=== PATIENT | female | born 1990 | race Caucasian/White ===

== ENCOUNTER 2018-09-02 00:20 | Emergency (ER) | payer MEDICARE, MEDICAID, SELFPAY ==
[2018-09-02 00:22] VITALS: BP 134/83; PULSE 117; RESP 25; TEMP 36.3; O2SAT 97; BMI 25.6
--- NOTE | 2018-09-02 00:23 | ED.RN ---
RN CALLED FOR EKG, PULLED OLD EKGS FOR
--- NOTE | 2018-09-02 00:30 | RAD_ITS ---
HISTORY: PALPITATIONS TODAY EXAM:XR Chest 1 View: COMPARISON: 09/03/2015 FINDINGS: EKG leads in place. No significant change. Normal heart size. Lung volumes appear normal. No vascular congestion, pleural effusion, or acute pulmonary infiltration. No pneumothorax. The bony thorax appears intact. RAD/Chest 1 View (Portable) IMPRESSION: No acute cardiopulmonary disease. No significant interval change. at 0049 Reported and signed by: Teto Desai MD Electronically Signed: Teto Desai, at 0:48 EDT Tel , Service support ,
--- NOTE | 2018-09-02 00:31 | EKG12_ITS ---
Test Reason : PALPITATIONS Blood Pressure : / mmHG Vent. Rate : 104 BPM Atrial Rate : 104 BPM P-R Int : 130 ms QRS Dur : 072 ms QT Int : 326 ms P-R-T Axes : 047 050 030 degrees QTc Int : 428 ms Sinus tachycardia Otherwise normal ECG Confirmed by TIM HAMEED, JENNIFER ([id number]), index editor JAYLEEN CLARK ([id number]) on 09/04/2018 11:18:19 AM Referred By: DUSTIN Confirmed By:JENNIFER DUMONT MD
[2018-09-02] MEDS: 0.9% Normal Saline 1,000 ML 150 ML IV (00:54)
[2018-09-02] MEDS: LORazepam 2 MG/ML Syringe 1 MG IV (00:54)
[2018-09-02 01:05] LABS: Absolute Lymphocyte Count 1.72 X10^3/ul (0.83-4.51); Absolute Neutrophil Count 5.1 X10^3/uL (2.0-7.7); Basophil# 0.02 X10^3/uL; Basophil% 0.2 % (0-1); Eosinophils% 1.2 % (0-5); Hemoglobin 13.3 g/dl (12.0-15.0); Lymphocyte # 1.72 X10^3/ul (4.0); Lymphocyte % 21.3 % (19-41); Mean Corp Hgb Conc 33.3 g/gl (32-36); Mean Corpuscular Hgb 30.2 pg (27.0-32.0); Mean Corpuscular Volume 90.7 fL (81-99); Mean Platelet Vol. 9.7 fl (6.2-12.0); Monocyte% 13.6 % (0-10); Neutrophil # 5.08 X10^3/uL (2.7-7.7); Neutrophil % 63.2 % (47-70); Platelet Count 236 K/mm3 (150-450); RBC Distribution Width CV 12.5 % (11.6-14.6); RBC Distribution Width SD 40.4 fl (35.1-43.9); Red Blood Count 4.41 M/mm3 (4.2-5.4); White Blood Count 8.1 K/mm3 (4.4-11.0)
[2018-09-02 01:11] LABS: POSITIVE COUNT NO; POSITIVE DIFFERENTIAL NO; POSITIVE MORPHOLOGY NO
[2018-09-02 01:16] LABS: D-Dimer Quantitative (DVT/PE) < 0.27 FEU/ug/m (0.27-0.49)
[2018-09-02 01:23] LABS: Anion Gap 7 (5-15); BUN 11 mg/dL (7-18); BUN/Creat Ratio 11.9 RATIO (10-20); Calcium,Total 8.7 mg/dL (8.5-10.1); Chloride 106 mmol/L (98-107); Creatinine, Serum 0.92 mg/dL (0.55-1.02); EST Glomerular Filtration Rate 76 mL/min (>60); Est Glom Filt Rate - Afr Amer 92 mL/min (>60); Estimated Creatinine Clearance 71.36 ml/min; Glucose 103 mg/dL (74-106); Potassium 3.7 mmol/L (3.5-5.1); Sodium Level 136 mmol/L (136-145)
[2018-09-02 01:45] LABS: Pregnancy, Serum, hCG Quali. NEGATIVE Negative (0-9 Nonpreg)
[2018-09-02 02:07] VITALS: PULSE 104; RESP 18; O2SAT 97
[2018-09-02 02:18] LABS: Bacteria 0 SEEN /hpf (None Seen); Mucous, Urine 0 SEEN /hpf (<or=2+); Red Blood Cells-Urine 0 SEEN /hpf (0-5)
[2018-09-02 02:21] LABS: Color, Urine Straw (Yellow); Glucose, Dipstick Normal (Normal); Ketone-Dipstick Negative (Negative); Leukocyte Esterase-Dipstick Negative /ul (Negative); Nitrite-Dipstick Negative (Negative); Occult Blood-Urine Negative /ul (Negative); Protein-Dipstick Negative (Negative); Urine Bilirubin Dipstick Negative (Negative); Urine Clarity Clear (Clear); Urine Urobilinogen Normal (Normal); Urine pH 6.5 (5.0 - 8.0)
--- NOTE | 2018-09-02 02:33 | ED.VISSUMM ---
- ER Visit Summary Date of Service: 09/02/18 Chief Complaint: [Tachycardia and palpitations] History of Present Illness: The patient is a 28 F [presents to the emergency department via EMS with complaint of racing heart that woke her up around 11 PM. Patient describes a mild left-sided chest discomfort. Patient states that she is thrown up twice in the last 24 hours for no reason. She denies any diarrhea. She denies any abdominal pain. Patient denies any fever or cough. She felt mildly short of breath with the tachycardia and she noted that her heart rate was in the 130s. Patient does have a history of prior SVT but has not had any issues in several years.] Physical Examination: [HEENT-PERRLA, EOMI. Cranial nerves II through XII grossly intact. TMs clear. Mucous membranes moist. No adenopathy. Cardiovascular-regular rate and rhythm without murmur or ectopy Lungs-clear to auscultation, chest wall stable without crepitus or subcu emphysema Abdomen-normoactive bowel sounds, soft, nontender, no rebound or rigidity, no peritoneal signs. Extremities-intact ?4, normal range of motion, normal pulses, atraumatic] Test Results: [EKG obtained arrival shows sinus rhythm with ventricular rate of 104 bpm. When compared with prior EKG from October 2016 at that time she had a sinus tachycardia as well with a heart rate of 127. There was no acute ST segment changes noted. No delta waves noted. CBC with differential showed a white count of 8.1, hemoglobin 13, hematocrit 40, placed 236. Chemistries unremarkable. Troponin was less than 0.015. D-dimer is less than 0.27. HCG was negative. Urinalysis was normal.] Emergency Department Course and Treatment: Patient does have a history of anxiety she was given Ativan 1 mg IV. Patient did feel improved after treatment. Her heart rate now is in the 80s at rest.] Treatment Plan: [Patient discharged home and advised to follow-up with primary care physician within next 3-5 days. Patient was given a 4 pack of Zofran for home.] Disposition: [Discharged home in stable condition] Impression: [Sinus tachycardia] Vomiting This note was generated with [employer] dictation software. It may contain incorrect words, spelling, and punctuation that were not noted in review of the chart prior to signing ED Disposition - Plan for ED Patient: Referrals: Crissy Rai MD [Primary Care Provider] -
--- NOTE | 2018-09-02 02:36 | ED.DEP ---
ED Disposition - Plan for ED Patient: Instructions: ED Palpitations, ED Nausea Vomiting Prescriptions: Ondansetron [Zofran Odt] 4 mg PO Q8H PRN PRN #10 tab PRN Reason: Nausea Referrals: Crissy Rai MD [Primary Care Provider] - 3-5 Days
[2018-09-02 02:42] LABS: Squamous Epithelial Cells - UA 0-5 SEEN /hpf (5-10)
[2018-09-02 02:43] LABS: White Blood Cells 0-5 SEEN /hpf (0-5)
[2018-09-02] MEDS: Ondansetron ODT 4 MG Tablet PO (02:50)
[2018-09-02 02:51] VITALS: BP 122/76; PULSE 94; RESP 18; O2SAT 94
== END 2018-09-02 02:52 | disposition home or self-care (01) ==
PROVIDERS: Emergency Provider Emergency Medicine; Family Provider Internal Medicine; PCP Internal Medicine
DX: R00.0 Tachycardia, unspecified (principal); R11.10 Vomiting, unspecified; F41.9 Anxiety disorder, unspecified; Z79.899 Other long term (current) drug therapy
CPT/HCPCS: 71045; 80048; 81001; 84484; 84703; 85025; 85379; 93005; 96361; 96374; 99285; J7030; A4216

== ENCOUNTER 2019-12-17 10:12 | Emergency (ER) | payer MEDICARE, MEDICAID, SELFPAY ==
[2019-12-17 10:13] VITALS: BP 135/98; PULSE 93; RESP 17; TEMP 36.4; O2SAT 100; BMI 18.9
--- NOTE | 2019-12-17 10:23 | CT_ITS ---
STUDY: CT ABDOMEN AND PELVIS WITHOUT CONTRAST REASON FOR EXAM: Female, 29 years old. RT SIDED ABD PAIN RADIATING AROUND TO RT FLANK, DIZZY, HTN, PREV HX OF [place] RADIATION DOSAGE (If Supplied By Facility): CTDIvol = ( 5.21 ) mGy, DLP = ( 220.29 ) mGycm TECHNIQUE: Transaxial images were obtained from the dome of the diaphragm to the symphysis pubis without oral contrast, and without intravenous contrast. Sagittal and coronal images were reconstructed. Individualized dose optimization techniques were used for this CT. COMPARISON: Comparison is made with prior examination dated June 02, 2012. FINDINGS: The visualized lung bases are unremarkable. The visualized portions of the heart are within normal limits. Normal liver. Normal gallbladder and extrahepatic biliary system. There is mild splenomegaly. Normal pancreas. Normal bilateral adrenal glands. Mild degree of right hydronephrosis. Punctate calcification in the proximal portion of the right ureter. Normal left kidney. Normal visualized stomach. Normal small intestine. Normal colon. The appendix is visualized and appears normal. Normal abdominal aorta. Normal inferior vena cava. Normal retroperitoneum. Normal urinary bladder. A dominant follicle measuring 1.3 cm is seen in the right ovary. Normal abdominal wall. Normal osseous structures. CT/Abdomen/Pel W ORAL Cont Only IMPRESSION: Punctate calcification in the proximal portion of the right ureter with mild right hydronephrosis. Dominant follicle is seen in the right Electronically Signed: Be Baker, at 13:03 EDT , Service support ,
--- NOTE | 2019-12-17 10:27 | ED.DCSUM_ITS ---
History of Present Illness Chief Complaint: Abd Pain Narrative: Patient presenting for evaluation secondary to abdominal pain. Patient reports that she was fine yesterday, today she woke up with a sudden onset of right- sided abdominal pain. She states that it is a sharp type pain worse with palpation and movement. This been associated with some nausea but no vomiting. She denies any dysuria or hematuria. She denies any vaginal discharge or bleeding. She denies any constipation or diarrhea. Patient states that it is a continuous pain, she is never had any prior similar episodes in the past. She denies any history of abdominal surgeries in the past. She does have a history of having kidney stones in the past, but states that this really does not feel consistent with that. Review of systems otherwise negative. Patient reports that she has had a menstrual cycle within the last 2 weeks, and does not believe that she is . Past Medical History - Allergies and Home Meds Allergies/Adverse Reactions: Allergies amoxicillin trihydrate [From Augmentin] Allergy (Verified 12/17/19 10:17) Unknown iodine Allergy (Verified 12/17/19 10:17) Shortness of breath potassium clavulanate [From Augmentin] Allergy (Verified 12/17/19 10:17) Unknown haloperidol [From Haldol] Adverse Reaction (Verified 12/17/19 10:17) Other haloperidol lactate [From Haldol] Adverse Reaction (Verified 12/17/19 10:17) Other Primary Care Physician: Suzy Sapp MD [STAFF PHYSICIAN] - 1 Week Prior records reviewed: Yes Past Medical History: None Surgical History: no surgical history Smoking Status: Never smoker - Family History Paternal Family History: Reports: No pertinent history Review of Systems All systems negative except as indicated General: Denies: Chills, Fever, Sweats Eyes: Denies: Visual changes - bilaterally, Diplopia ENT: Denies: Rhinorrhea, Sore throat Cardiovascular: Denies: Chest pain, Palpitations Respiratory: Denies: Dyspnea, Cough, Dyspnea on exertion Gastrointestinal: Reports: Abdominal pain, Nausea Genitourinary: Denies: Dysuria, Hematuria, Frequency Musculoskeletal: Denies: Back pain, Extremity Pain Skin: Denies: Rash, Wounds Neurological: Denies: Headache, Weakness, Numbness Physical Exam Vital Signs/Narrative: Vital Signs Temp Pulse Resp BP Pulse Ox 12/17/19 10:13 97.6 F L 93 17 135/98 H 100 General: Well nourished, Well developed, No Acute Distress Head: Normocephalic, Atraumatic Eyes: Perrl, EOMI. Negative for: Pale conjunctiva, Scleral icterus ENT: Moist mucous membranes, No rhinorrhea Neck: Supple, Nontender Cardiovascular: Regular rhythm, No murmurs, Tachycardia, - - 2+ radial pulses bilaterally symmetric Respiratory: No distress, CTA bilaterally, Chest nontender Abdomen: Soft, Tender - Right lower quadrant and minimally in the right upper quadrants but predominantly over the right lower quadrant with some localized guarding, no diffuse rigidity or rebound tenderness noted. Positive Rovsing. Positive obturator sign. Back: Nontender, Normal Inspection Extremities: Nontender, No edema Skin: Normal color, No rash Neurological: Alert, Oriented x3, Cranial nerves II-XII grossly intact, Normal Strength, Normal Sensation Psychological: Normal affect, Normal Mood Diagnostic/Tx/Re-eval Clinical Impression(s) from Imaging Studies Abdomen CT 12/17/19 10:23 IMPRESSION: Punctate calcification in the proximal portion of the right ureter with mild right hydronephrosis. Dominant follicle is seen in the right Electronically Signed: Be Baker, at 13:03 EDT , Service support , Laboratory Data 12/17/19 12/17/19 12/17/19 10:35 10:35 10:47 WBC 9.3 RBC 4.75 Hgb 15.2 H Hct 43.6 MCV 91.8 MCH 32.0 MCHC 34.9 RDW Std Deviation 40.9 RDW Coeff of Mitchel 12.4 Plt Count 298 MPV 9.3 Immature Gran % (Auto) 0.200 Neut % (Auto) 42.5 L Lymph % (Auto) 46.0 H [place] % (Auto) 7.8 Eos % (Auto) 2.9 Baso % (Auto) 0.6 Absolute Neuts (auto) 3.9 Absolute Lymphs (auto) 4.27 Nucleated RBC % 0 Sodium Cancelled 139 Potassium Cancelled 3.5 Chloride Cancelled 107 Carbon Dioxide Cancelled 26.0 Anion Gap Cancelled 6 BUN Cancelled 11 Creatinine Cancelled 0.75 Estim Creat Clear Calc Cancelled 89.53 Est GFR (MDRD) Af Amer Cancelled 116 Est GFR (MDRD) Non-Af Cancelled 96 BUN/Creatinine Ratio Cancelled 14.7 Glucose Cancelled 99 Calcium Cancelled 9.2 Total Bilirubin Cancelled 2.30 H AST Cancelled 14 L ALT Cancelled 15 Alkaline Phosphatase Cancelled 84 Total Protein Cancelled 8.1 Albumin Cancelled 4.3 Globulin Cancelled 3.8 Albumin/Globulin Ratio Cancelled 1.1 Lipase Cancelled 62 L Serum , Qual 12/17/19 12:07 WBC RBC Hgb Hct MCV MCH MCHC RDW Std Deviation RDW Coeff of Mitchel Plt Count MPV Immature Gran % (Auto) Neut % (Auto) Lymph % (Auto) [place] % (Auto) Eos % (Auto) Baso % (Auto) Absolute Neuts (auto) Absolute Lymphs (auto) Nucleated RBC % Sodium Potassium Chloride Carbon Dioxide Anion Gap BUN Creatinine Estim Creat Clear Calc Est GFR (MDRD) Af Amer Est GFR (MDRD) Non-Af BUN/Creatinine Ratio Glucose Calcium Total Bilirubin AST ALT Alkaline Phosphatase Total Protein Albumin Globulin Albumin/Globulin Ratio Lipase Serum , Qual NEGATIVE - Medical Decision Making Patient presented with right-sided abdominal pain. She did seem to localize it somewhat in the lower quadrants, so work-up was obtained for potential appendicitis. IV was established laboratory studies were obtained. Patient has no leukocytosis, chemistry shows mild elevation of bilirubin but stable renal function, no evidence of electrolyte derangements. Patient was given morphine and Zofran for treatment of pain, she did have improvement on repeat evaluation. CT abdomen and pelvis was performed which ended up showing patient to have a punctate proximal right sided ureteral stone which is likely the cause of her pain. Patient's urine ended up showing blood but no evidence of pyuria. Patient at this point has urolithiasis with controlled pain. She will be sent on with a course of Percocet. She will be given follow-up with urology. She understands signs and symptoms which to return. ED Disposition - Plan for ED Patient: Disposition: Home or Assisted Living Diagnosis: Urolithiasis Instructions: ED Renal Stone w Colic Prescriptions: Oxycodone HCl/Acetaminophen [Percocet 5/325] 1 tab PO Q6H PRN PRN 3 Days #12 tab PRN Reason: Pain Or Fever Prescription Printed Referrals: Suzy Sapp MD [STAFF PHYSICIAN] - 1 Week
[2019-12-17 10:45] LABS: Absolute Lymphocyte Count 4.27 X10^3/uL (0.83-4.51); Absolute Neutrophil Count 3.9 X10^3/uL (2.0-7.7); Basophil# 0.06 X10^3/uL; Basophil% 0.6 % (0-1); Eosinophil# 0.27 X10^3/uL; Eosinophils% 2.9 % (0-5); Hematocrit 43.6 % (37-47); Hemoglobin 15.2 g/dL (12.0-15.0); Lymphocyte # 4.27 X10^3/ul (4.0); Mean Corp Hgb Conc 34.9 g/dL (32-36); Mean Corpuscular Volume 91.8 fL (81-99); Mean Platelet Vol. 9.3 fl (6.2-12.0); Monocyte# 0.72 X10^3/uL; Monocyte% 7.8 % (0-10); NRBC Flagged by Analyzer 0 % (0-5); Neutrophil # 3.94 X10^3/uL (2.7-7.7); Neutrophil % 42.5 % (47-70); Platelet Count 298 K/mm3 (150-450); RBC Distribution Width CV 12.4 % (11.6-14.6); RBC Distribution Width SD 40.9 fl (35.1-43.9); Red Blood Count 4.75 M/mm3 (4.2-5.4); White Blood Count 9.3 K/mm3 (4.4-11.0)
[2019-12-17] MEDS: Ondansetron 4 MG/2 ML Vial IV (10:47)
[2019-12-17] MEDS: 0.9% Normal Saline 1,000 ML 1000 ML IV (10:47)
[2019-12-17] MEDS: Morphine 4 MG/ML Syringe IV (10:48)
[2019-12-17 11:16] LABS: ALB/GLOB Ratio 1.1 RATIO (0.9-2.4); AST(SGOT) 14 U/L (15-37); Alanine Aminotransfer ALT/SGPT 15 U/L (13-56); Albumin, Serum 4.3 g/dL (3.2-5.0); Alkaline Phosphatase 84 U/L (45-117); Anion Gap 6 (5-15); BUN 11 mg/dL (7-18); BUN/Creat Ratio 14.7 RATIO (10-20); Calcium,Total 9.2 mg/dL (8.5-10.1); Chloride 107 mmol/L (98-107); Creatinine, Serum 0.75 mg/dL (0.55-1.02); EST Glomerular Filtration Rate 96 mL/min (>60); Est Glom Filt Rate - Afr Amer 116 mL/min (>60); Estimated Creatinine Clearance 89.53 ml/min; Globulin 3.8 g/dL (2.2-4.2); Glucose 99 mg/dL (74-106); Lipase 62 U/L (73-393); Potassium 3.5 mmol/L (3.5-5.1); Protein, Total 8.1 g/dL (6.4-8.2); Sodium Level 139 mmol/L (136-145)
[2019-12-17 12:28] LABS: Internal QC Validated? YES +Cl - CLEAR BKGD; Pregnancy, Serum, hCG Quali. NEGATIVE Negative
[2019-12-17 14:18] VITALS: BP 109/75; PULSE 86; RESP 18; O2SAT 95
[2019-12-17 14:21] LABS: Mucous, Urine 0 SEEN /hpf (<or=2+); White Blood Cells 0 SEEN /hpf (0-5)
[2019-12-17 14:22] LABS: Color, Urine Yellow (Yellow); Glucose, Dipstick Normal (Normal); Ketone-Dipstick 15 mg/dl (Negative); Leukocyte Esterase-Dipstick Negative /ul (Negative); Nitrite-Dipstick Negative (Negative); Occult Blood-Urine 250 /ul (Negative); Protein-Dipstick Negative (Negative); Urine Bilirubin Dipstick Negative (Negative); Urine Clarity Sl. Cloudy (Clear); Urine Urobilinogen Normal (Normal)
[2019-12-17 14:24] LABS: Internal QC Validated? YES +Cl - CLEAR BKGD; Pregnancy, Urine Negative Negative
[2019-12-17 14:28] LABS: Bacteria 1+ /hpf (None Seen); Red Blood Cells-Urine 25-50 SEEN /hpf (0-5); Squamous Epithelial Cells - UA 0-5 SEEN /hpf (5-10)
== END 2019-12-17 14:47 | disposition home or self-care (01) ==
PROVIDERS: Emergency Provider Emergency Medicine; PCP Internal Medicine
DX: N13.2 Hydronephrosis with renal and ureteral calculous obstruction (principal); Z87.442 Personal history of urinary calculi
CPT/HCPCS: 74176; 80053; 81001; 81025; 83690; 84703; 85025; 96361; 96374; 96375; 99285; J7030; A4216; J2405

== ENCOUNTER 2020-10-28 10:20 | Emergency (ER) | payer MEDICARE, MEDICAID, SELFPAY ==
[2020-10-28 10:21] VITALS: BP 144/101; PULSE 117; RESP 16; TEMP 36.8; O2SAT 98; BMI 18.8
--- NOTE | 2020-10-28 10:53 | EKG12_ITS ---
Test Reason : [facility] [place] Pressure : / mmHG Vent. Rate : 111 BPM Atrial Rate : 111 BPM P-R Int : 126 ms QRS Dur : 062 ms QT Int : 342 ms P-R-T Axes : 058 073 045 degrees QTc Int : 465 ms Sinus tachycardia Otherwise normal ECG Confirmed by FRED HAMEED, ELI ([id number]), video news editor JAYLEEN CLARK ([id number]) on 10/31/2020 11:26:56 A M Referred By: CHARIS Confirmed By:BING IBARRA MD
--- NOTE | 2020-10-28 11:14 | EDS_ITS ---
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 Patient recently took her self off of her Zyprexa and lorazepam. She had been living in [place] until September and then returned back to [place]. She does not currently have a counselor or psychiatrist. Mother noted she seemed normal yesterday when the middle the night she started just standing by the washing machine. She then lowered her self to the ground and laid on the ground for couple hours. This is consistent per her mother of her catatonic states. When she had not gotten her self up, mother called 911 and patient was transferred to the emergency room. Patient does get flashbacks that seem to be her triggers. Patient had not previously verbalize any homicidal suicidal ideations. Patient had previously followed at the counseling center but nothing recently. Mother states counseling is a trigger of hers. Prior similar symptoms: Yes PFSH PFSH Medical History Schizophrenia Home Medications NK 10/28/20 [History Last Taken Unknown] Allergy/AdvReac Type Severity Reaction Status Date / Time amoxicillin trihydrate Allergy Unknown Verified 10/28/20 10:24 [From Augmentin] iodine Allergy Shortness Verified 10/28/20 10:24 of breath potassium clavulanate Allergy Unknown Verified 10/28/20 10:24 [From Augmentin] haloperidol [From Haldol] AdvReac Other Verified 10/28/20 10:24 haloperidol lactate AdvReac Other Verified 10/28/20 10:24 [From Haldol] Social History Smoking Status: Never smoker ROS ROS ED Review of Systems ROS Unobtainable: due to mental condition EXAM Physical Exam Const Vital Signs: 10/28/20 10:21 10/28/20 14:27 10/28/20 16:08 Temperature 98.3 F Temperature Source Temporal Pulse Rate 117 H 103 H Respiratory Rate 16 14 Blood Pressure 144/101 H 114/81 H 126/88 H Blood Pressure Mean 115 92 100 Pulse Ox 98 98 Oxygen Delivery Method Room Air Room Air Positive well nourished, well developed and no apparent distress Constitutional Narrative: Patient is laying still in the bed. General Appearance ED: well developed HEENT Reports normocephalic normocephalic and atraumatic Nose: no nasal discharge General Ear: hearing grossly impaired External Ear: external ears normal Mouth ED: Yes moist mucous membranes abnormal Mouth: moist mucous membranes abnormal Eyes PERRL Eyes Narrative: Patient does not cooperate with exam. When I attempt to open her eyes she squeezes them shot however at other times she will open her eyes on her own. Patient does not appear to be looking around the room. Neck full ROM, supple, no meningeal signs and no JVD Chest Wall inspection of chest normal Resp normal respiratory effort, normal air movement and clear to auscultation bilaterally Cardio regular rate and regular rhythm Rate: regular rate Rhythm: regular rhythm GI normal to inspection, nondistended, normoactive bowel sounds, non-tender and non-distended Palpation: soft Extremity normal to inspection and full ROM Neuro no focal motor deficits and no sensory deficits noted Neuro Narrative: Patient is nonverbal and does not answer any questions. She does not interact with the environment but does appear to be alert. She is able to move all of extremities. When I attempt to drop her hand over her head patient will hold her hand up protecting her face and then slowly lower her hand to the bed. She does this with both extremities. Patient has normal tone throughout. Psych Psych Narrative: Patient is withdrawn and does not answer any questions or take part in the exam in any way. Appearance: grossly normal and well kempt Attitude: withdrawn Speech: mute Skin no rashes or lesions noted and no wounds MDM MDM MDM Narrative Medical decision making narrative: Patient laying in bed and not responding to external stimuli. This is consistent with her prior episodes of catatonic schizophrenia. Patient is medically cleared. Urinalysis is contaminated. Will send out for culture but would not treat at this time. Patient is medically cleared and will require inpatient psychiatric care given her current psychiatric state. I do not think this is more serious neurologic process as patient has normal vital signs, normal lab work and is able to protect her eyes and face with voluntary movements. Patient accepted at [facility] by Dr. Cantrell. Lab Data Labs: Laboratory Results - last 24 hr 10/28/20 10/28/20 10/28/20 11:05 11:05 11:05 WBC 10.0 RBC 4.33 Hgb 13.5 Hct 38.5 MCV 88.9 MCH 31.2 MCHC 35.1 RDW Std Deviation 38.2 RDW Coeff of Mitchel 11.9 Plt Count 267 MPV 8.9 Immature Gran % (Auto) 0.300 Neut % (Auto) 56.7 Lymph % (Auto) 31.1 [place] % (Auto) 10.1 H Eos % (Auto) 1.2 Baso % (Auto) 0.6 Absolute Neuts (auto) 5.7 Absolute Lymphs (auto) 3.12 Nucleated RBC % 0 Sodium 140 Potassium 3.7 Chloride 108 H Carbon Dioxide 26.0 Anion Gap 6 BUN 9 Creatinine 0.70 Estim Creat Clear Calc 88.79 Est GFR (MDRD) Af Amer 125 Est GFR (MDRD) Non-Af 103 BUN/Creatinine Ratio 12.8 Glucose 107 H Calcium 9.0 Total Bilirubin 2.60 H AST 8 L ALT 12 L Alkaline Phosphatase 63 Total Protein 7.5 Albumin 4.0 Globulin 3.5 Albumin/Globulin Ratio 1.1 Serum , Qual Urine Color Urine Clarity Urine pH Ur Specific [place] Urine Protein Urine Glucose (UA) Urine Ketones Urine Occult Blood Urine Nitrite Urine Bilirubin Urine Urobilinogen Ur Leukocyte Esterase Urine RBC Urine WBC Ur Squamous Epith Cells Urine Bacteria Urine Mucus Urine Opiates Screen Urine Methadone Screen Ur Barbiturates Screen Ur Phencyclidine Scrn Ur Amphetamines Screen U Methamphetamin-MDMA U Benzodiazepines Scrn Urine Cocaine Screen U Cannabinoids Screen Ur Drug Screen Comment Ethyl Alcohol < 3.0 10/28/20 10/28/20 10/28/20 11:05 14:50 14:50 WBC RBC Hgb Hct MCV MCH MCHC RDW Std Deviation RDW Coeff of Mitchel Plt Count MPV Immature Gran % (Auto) Neut % (Auto) Lymph % (Auto) [place] % (Auto) Eos % (Auto) Baso % (Auto) Absolute Neuts (auto) Absolute Lymphs (auto) Nucleated RBC % Sodium Potassium Chloride Carbon Dioxide Anion Gap BUN Creatinine Estim Creat Clear Calc Est GFR (MDRD) Af Amer Est GFR (MDRD) Non-Af BUN/Creatinine Ratio Glucose Calcium Total Bilirubin AST ALT Alkaline Phosphatase Total Protein Albumin Globulin Albumin/Globulin Ratio Serum , Qual NEGATIVE Urine Color Yellow Urine Clarity Clear Urine pH 5.0 Ur Specific [place] 1.025 Urine Protein 15 H Urine Glucose (UA) Normal Urine Ketones 50 H Urine Occult Blood 250 H Urine Nitrite Negative Urine Bilirubin Negative Urine Urobilinogen 1 H Ur Leukocyte Esterase 25 H Urine RBC 5-10 SEEN Urine WBC 0 SEEN Ur Squamous Epith Cells 0-5 SEEN Urine Bacteria 3+ Urine Mucus 3+ Urine Opiates Screen NEGATIVE Urine Methadone Screen NEGATIVE Ur Barbiturates Screen NEGATIVE Ur Phencyclidine Scrn NEGATIVE Ur Amphetamines Screen NEGATIVE U Methamphetamin-MDMA NEGATIVE U Benzodiazepines Scrn NEGATIVE Urine Cocaine Screen NEGATIVE U Cannabinoids Screen NEGATIVE Ur Drug Screen Comment Ethyl Alcohol Rhythm Strip Rhythm Strip: Sinus Tach Rate: 111 Ectopy: None EKG Initial EKG: Attestation: I personally reviewed and interpreted this EKG as follows: Interpretation: Sinus Tachycardia Comments: Sinus tachycardia rate of 111 Normal axis Normal intervals Normal ST segments Discharge Plan Triage Chief Complaint: Mental Health ED Provider: Alessia Saldana Dx/Rx/DC Orders Clinical Impression: Catatonia schizophrenia Prescriptions: No Action NK RF: 0 Primary Care Provider: Crissy Rai Referrals: Crissy Rai MD [Primary Care Provider] - Disposition Disposition: Psychiatric Hospital or Unit Discharge Location: [facility]
[2020-10-28 11:23] LABS: Absolute Lymphocyte Count 3.12 X10^3/uL (0.83-4.51); Absolute Neutrophil Count 5.7 X10^3/uL (2.0-7.7); Basophil# 0.06 X10^3/uL; Basophil% 0.6 % (0-1); Eosinophil# 0.12 X10^3/uL; Eosinophils% 1.2 % (0-5); Hematocrit 38.5 % (37-47); Hemoglobin 13.5 g/dL (12.0-15.0); Lymphocyte # 3.12 X10^3/ul (0.83-4.51); Lymphocyte % 31.1 % (19-41); Mean Corp Hgb Conc 35.1 g/dL (32-36); Mean Corpuscular Hgb 31.2 pg (27.0-32.0); Mean Corpuscular Volume 88.9 fL (81-99); Mean Platelet Vol. 8.9 fl (6.2-12.0); Monocyte# 1.01 X10^3/uL; Monocyte% 10.1 % (0-10); NRBC Flagged by Analyzer 0 % (0-5); Neutrophil % 56.7 % (47-70); Platelet Count 267 K/mm3 (150-450); RBC Distribution Width CV 11.9 % (11.6-14.6); RBC Distribution Width SD 38.2 fl (35.1-43.9); Red Blood Count 4.33 M/mm3 (4.2-5.4)
[2020-10-28 11:34] LABS: ALB/GLOB Ratio 1.1 RATIO (0.9-2.4); AST(SGOT) 8 U/L (15-37); Alanine Aminotransfer ALT/SGPT 12 U/L (13-56); Alkaline Phosphatase 63 U/L (45-117); Anion Gap 6 (5-15); BUN 9 mg/dL (7-18); BUN/Creat Ratio 12.8 RATIO (10-20); Chloride 108 mmol/L (98-107); EST Glomerular Filtration Rate 103 mL/min (>60); Est Glom Filt Rate - Afr Amer 125 mL/min (>60); Estimated Creatinine Clearance 88.79 ml/min; Globulin 3.5 g/dL (2.2-4.2); Glucose 107 mg/dL (74-106); Potassium 3.7 mmol/L (3.5-5.1); Protein, Total 7.5 g/dL (6.4-8.2); Sodium Level 140 mmol/L (136-145)
[2020-10-28 11:36] LABS: Alcohol, Blood (Medical)-Serum < 3.0 mg/dL
[2020-10-28 11:37] LABS: Internal QC Validated? YES +Cl - CLEAR BKGD; Pregnancy, Serum, hCG Quali. NEGATIVE Negative
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
[2020-10-28 14:27] VITALS: BP 114/81
[2020-10-28 14:59] LABS: White Blood Cells 0 SEEN /hpf (0-5)
[2020-10-28 15:02] LABS: Color, Urine Yellow (Yellow); Glucose, Dipstick Normal (Normal); Ketone-Dipstick 50 mg/dl (Negative); Leukocyte Esterase-Dipstick 25 /ul (Negative); Nitrite-Dipstick Negative (Negative); Occult Blood-Urine 250 /ul (Negative); Protein-Dipstick 15 mg/dl (Negative); Specific Gravity, Urine 1.025 (1.002-1.030); Urine Bilirubin Dipstick Negative (Negative); Urine Clarity Clear (Clear); Urine Urobilinogen 1 mg/dl (Normal)
[2020-10-28 15:15] LABS: Amphetamine Urine VISTA NEGATIVE (<1000 ng/mL); Barbiturate Urine VISTA NEGATIVE (< 200 ng/mL); Benzodiazepine Urine VISTA NEGATIVE (< 200 ng/mL); Cocaine Urine VISTA NEGATIVE (< 300 ng/mL); Ecstacy Urine VISTA NEGATIVE (< 500 ng/mL); Methadone Urine VISTA NEGATIVE (< 300 ng/mL); PCP Urine VISTA NEGATIVE (< 25 ng/mL); THC Urine VISTA NEGATIVE (< 50 ng/mL); Vista UDS pH Range 4
[2020-10-28 15:23] LABS: Bacteria 3+ /hpf (None Seen); Mucous, Urine 3+ /hpf (<or=2+); Red Blood Cells-Urine 5-10 SEEN /hpf (0-5); Squamous Epithelial Cells - UA 0-5 SEEN /hpf (5-10)
[2020-10-28 16:08] VITALS: BP 126/88; PULSE 103; RESP 14; O2SAT 98
[2020-10-28 16:16] VITALS: BP 121/77; PULSE 90; RESP 12
--- NOTE | 2020-10-28 16:23 | ED.RN ---
REPORT CALLED TO SAMI AT [facility].
--- NOTE | 2020-10-28 17:12 | CM.ED ---
SW Assessment SW spoke to patient's mother, Snehal. She asked if she could go home. RENEE spoke to MD who indicated mother could go home. SW completed assessment. RENEE called patient's mother, Snehal, as patient did not talk. Snehal was in agreement with referral to [facility]. RENEE called [facility]. They have bed available. SW faxed referral package to them. RENEE was advised By Jasmin in Admissions that [facility] would accept. They need copy of pink slip for patient. The accepting MD is and patient will be on [facility]. RENEE called patients mother and advised her of patient being accepted at [facility]. She reports she will be in shortly to say goodbye to patient. RENEE updated RN and MD that patient accepted to [facility]. [place] and Transfer Sheet completed by MD [place] made transportation arrangements. Estimated time at [facility] 2.5 hours SW called [facility] and spoke to admission and advised that patient ambulance excelsior picker is scheduled for 2.5 hours. RENEE provided patient's mother with handout on [facility]. Mother expressed thanks for this technical proposal writer's work. Plan: Patient has been accepted at [facility] Radha FRANCIS
== END 2020-10-28 18:44 ==
PROVIDERS: Emergency Provider Emergency Medicine; PCP Internal Medicine
DX: F20.2 Catatonic schizophrenia (principal)
CPT/HCPCS: 80053; 80307; 81001; 82077; 84703; 85025; 87086; 87088; 87426; 93005; 99285

== ENCOUNTER 2021-04-21 14:55 | Emergency (ER) | payer MEDICARE, MEDICAID, SELFPAY ==
[2021-04-21 15:06] VITALS: BP 139/85; PULSE 129; RESP 16; TEMP 36.6; O2SAT 97; BMI 18.8
--- NOTE | 2021-04-21 17:39 | EDS_ITS ---
HPI HPI - Psych History of Present Illness Chief Complaint: Mental Health Narrative Narrative: 30-year-old female with history of schizophrenia presenting with the police as she was found outside walking down the middle of [address]. The police did try to get her to stop however she had to be physically restrained. Patient has not been on any medications for her schizophrenia. Apparently she was talking nonsensically. After speaking with her mother who she lives with she states that she has been having episodes of kia where she is been up for four nights in a row. She has a history of being catatonic intermittently. She has had episodes of this as well. Her mom states that she was at [place] the other day and got out of the car and started to walk away and her mom just followed her around watching her on a playground. When she confronted her she had another episode of the catatonia. Her mother states this is probably from PTSD symptom its not new. Patient's mother also states that every time she has a menstrual cycle she has these episodes and believes it might be tied to this. The patient was previously hospitalized this year and was medicated at that time and reportedly doing well but after she left the hospital stopped taking her medications. Her mother has been using CBD oil to help treat her symptoms. This has not been successful. Patient has times where she does not take care of herself and does not eat and drink. [facility] Medical History Schizophrenia Home Medications NK 10/28/20 [History Last Taken Unknown] Allergy/AdvReac Type Severity Reaction Status Date / Time amoxicillin trihydrate Allergy Unknown Verified 04/21/21 15:09 [From Augmentin] iodine Allergy Shortness Verified 04/21/21 15:09 of breath potassium clavulanate Allergy Unknown Verified 04/21/21 15:09 [From Augmentin] haloperidol [From Haldol] AdvReac Other Verified 04/21/21 15:09 haloperidol lactate AdvReac Other Verified 04/21/21 15:09 [From Haldol] Social History Smoking Status: Never smoker ROS ROS ED Constitutional Constitutional ED: Denies chills or fever(s) Eyes Eyes: Denies blurry vision or change in vision ENT ENT ED: Denies rhinorrhea or sore throat Cardiovascular Cardiovascular: Denies chest pain or palpitations Respiratory/Chest Respiratory/Chest: Denies cough or dyspnea Gastrointestinal Gastrointestinal: Denies abdominal pain, nausea or vomiting Genitourinary Genitourinary ED: Denies dysuria or hematuria Integumentary Denies Abrasions or rash Psychiatric Psychiatric: Reports anxiety Endocrine Endocrinology: Denies polydipsia or polyuria EXAM Physical Exam Const Vital Signs: 04/21/21 15:06 04/21/21 21:50 Temperature 97.8 F 97.5 F L Temperature Source Temporal Temporal Pulse Rate 129 H 99 Respiratory Rate 16 16 Blood Pressure 139/85 H 109/68 Blood Pressure Mean 103 81 Pulse Ox 97 98 Oxygen Delivery Method Room Air Room Air Positive well nourished General Appearance ED: NAD; Negative for pallor HEENT Reports moist mucous membranes normocephalic and atraumatic Eyes PERRL and EOMs intact bilaterally Cardio Rate: tachycardic Rhythm: regular rhythm GI non-tender Palpation: soft Neuro oriented x3 Sensorium / Orientation: alert Psych Attitude: calm and withdrawn Mood & Affect: anxious Skin General Skin Exam: Negative for jaundice or pallor MDM MDM MDM Narrative Medical decision making narrative: Patient is medically cleared and her blood work is essentially normal. After a long talk with the renal social worker as well as that her mother it does not appear that her mother can take care of her on her own because she keeps leaving home. She has history of schizophrenia and does this frequently. She also has catatonic periods. Patient is unable to take care of herself at baseline and her mom is having difficulty caring for her due to her episodes. In addition just the patient is not medicated and it does not sound as if her mother encouraged her to take the medication. Her mother is giving her CBD oil to treat her schizophrenia which I do not believe is effective. I think the best course of action is to have the patient admitted for inpatient care due to her psychiatric history and inability of inability to care for her especially care for herself. In addition to this there is a safety concern as the patient is walking down the middle of the road talking and sensibly in traffic. It does sound as if the patient has been having manic episodes per days in addition to symptoms. Patient is cleared medically. Patient excepted to [facility]. She will be transferred when transport arrives. She has been otherwise stable here in the ER. Impression: 1. Schizophrenia Lab Data Attestation: I reviewed the patient's lab results. Labs: Laboratory Results - last 24 hr 04/21/21 04/21/21 04/21/21 18:15 18:15 18:15 WBC 8.3 RBC 4.17 L Hgb 13.4 Hct 36.8 L MCV 88.2 MCH 32.1 H MCHC 36.4 H RDW Std Deviation 38.4 RDW Coeff of Mitchel 12.0 Plt Count 291 MPV 9.1 Immature Gran % (Auto) 0.400 Neut % (Auto) 59.7 Lymph % (Auto) 30.1 [place] % (Auto) 8.2 Eos % (Auto) 0.8 Baso % (Auto) 0.8 Absolute Neuts (auto) 4.9 Absolute Lymphs (auto) 2.49 Nucleated RBC % 0 Sodium 140 Potassium 3.6 Chloride 107 Carbon Dioxide 25.0 Anion Gap 8 BUN 7 Creatinine 0.68 Estim Creat Clear Calc 88.18 Est GFR (MDRD) Af Amer 129 Est GFR (MDRD) Non-Af 107 BUN/Creatinine Ratio 10.3 Glucose 90 Calcium 9.1 Serum , Qual Urine Opiates Screen Urine Methadone Screen Ur Barbiturates Screen Ur Phencyclidine Scrn Ur Amphetamines Screen U Methamphetamin-MDMA U Benzodiazepines Scrn Urine Cocaine Screen U Cannabinoids Screen Ur Drug Screen Comment Ethyl Alcohol < 3.0 04/21/21 04/21/21 18:15 19:40 WBC RBC Hgb Hct MCV MCH MCHC RDW Std Deviation RDW Coeff of Mitchel Plt Count MPV Immature Gran % (Auto) Neut % (Auto) Lymph % (Auto) [place] % (Auto) Eos % (Auto) Baso % (Auto) Absolute Neuts (auto) Absolute Lymphs (auto) Nucleated RBC % Sodium Potassium Chloride Carbon Dioxide Anion Gap BUN Creatinine Estim Creat Clear Calc Est GFR (MDRD) Af Amer Est GFR (MDRD) Non-Af BUN/Creatinine Ratio Glucose Calcium Serum , Qual NEGATIVE Urine Opiates Screen NEGATIVE Urine Methadone Screen NEGATIVE Ur Barbiturates Screen NEGATIVE Ur Phencyclidine Scrn NEGATIVE Ur Amphetamines Screen NEGATIVE U Methamphetamin-MDMA NEGATIVE U Benzodiazepines Scrn NEGATIVE Urine Cocaine Screen NEGATIVE U Cannabinoids Screen POSITIVE H Ur Drug Screen Comment Ethyl Alcohol Discharge Plan Triage Chief Complaint: Mental Health ED Provider: Ry Portillo Dx/Rx/DC Orders Prescriptions: No Action NK RF: 0 Primary Care Provider: Crissy Rai
[2021-04-21 18:23] LABS: Absolute Lymphocyte Count 2.49 X10^3/uL (0.83-4.51); Absolute Neutrophil Count 4.9 X10^3/uL (2.0-7.7); Basophil# 0.07 X10^3/uL; Basophil% 0.8 % (0-1); Eosinophil# 0.07 X10^3/uL; Eosinophils% 0.8 % (0-5); Hematocrit 36.8 % (37-47); Hemoglobin 13.4 g/dL (12.0-15.0); Lymphocyte # 2.49 X10^3/ul (0.83-4.51); Lymphocyte % 30.1 % (19-41); Mean Corp Hgb Conc 36.4 g/dL (32-36); Mean Corpuscular Hgb 32.1 pg (27.0-32.0); Mean Corpuscular Volume 88.2 fL (81-99); Mean Platelet Vol. 9.1 fl (6.2-12.0); Monocyte# 0.68 X10^3/uL; Monocyte% 8.2 % (0-10); NRBC Flagged by Analyzer 0 % (0-5); Neutrophil # 4.92 X10^3/uL (2.7-7.7); Neutrophil % 59.7 % (47-70); Platelet Count 291 K/mm3 (150-450); RBC Distribution Width SD 38.4 fl (35.1-43.9); Red Blood Count 4.17 M/mm3 (4.2-5.4); White Blood Count 8.3 K/mm3 (4.4-11.0)
--- NOTE | 2021-04-21 18:23 | ED.RN ---
attempted to take pt to void for urine sample but did not attempt to pee.
[2021-04-21 18:37] LABS: Alcohol, Blood (Medical)-Serum < 3.0 mg/dL
[2021-04-21 18:39] LABS: Anion Gap 8 (5-15); BUN 7 mg/dL (7-18); BUN/Creat Ratio 10.3 RATIO (10-20); Calcium,Total 9.1 mg/dL (8.5-10.1); Chloride 107 mmol/L (98-107); Creatinine, Serum 0.68 mg/dL (0.55-1.02); EST Glomerular Filtration Rate 107 mL/min (>60); Est Glom Filt Rate - Afr Amer 129 mL/min (>60); Estimated Creatinine Clearance 88.18 ml/min; Glucose 90 mg/dL (74-106); Potassium 3.6 mmol/L (3.5-5.1); Sodium Level 140 mmol/L (136-145)
[2021-04-21] MEDS: Ziprasidone IM 20 MG/ML VIAL IM (18:58)
--- NOTE | 2021-04-21 18:59 | ED.RN ---
PT ATTEMPTING TO LEAVE THE ROOM. PTS MOTHER AT BEDSIDE ATTEMPTING TO KEEP HER INSIDE AND PT IS SCREAMING. STAFF ASSISTED PT BACK INTO THE BED BUT IS UNWILLING TO REMAIN THERE. PT IS TRYING TO LEAVE THE ROOM AND UNABLE TO REDIRECT HER. PHYSICIAN NOTIFIED AND MEDICATION ORDERED. PTS PARENT IS GOING HOME TO GET CLOTHES FOR THE PTT WHEN SHE IS TRANSFERRED. SECURITY IS REMAINING AT THE BEDSIDE AT THIS TIME UNTIL PT IS MORE COOPERATIVE.
[2021-04-21 20:14] LABS: Amphetamine Urine VISTA NEGATIVE (<1000 ng/mL); Barbiturate Urine VISTA NEGATIVE (< 200 ng/mL); Benzodiazepine Urine VISTA NEGATIVE (< 200 ng/mL); Cocaine Urine VISTA NEGATIVE (< 300 ng/mL); Ecstacy Urine VISTA NEGATIVE (< 500 ng/mL); Methadone Urine VISTA NEGATIVE (< 300 ng/mL); PCP Urine VISTA NEGATIVE (< 25 ng/mL); THC Urine VISTA POSITIVE (< 50 ng/mL); Vista UDS pH Range 7
[2021-04-21 20:32] LABS: Internal QC Validated? YES +Cl - CLEAR BKGD; Pregnancy, Serum, hCG Quali. NEGATIVE Negative
--- NOTE | 2021-04-21 21:12 | CM.ED ---
Addendum entered by Radha Garcia 04/21/21 21:59: RENEE updated patient's mother, Snehal, that referrals made to [facility] and [facility]. Snehal reports that is too far away. Snehal said that she wants social professionals to call and arrange for discharge transportation home from psych. RENEE explained that this is not the SW role. Snehal said the counseling center did that before. RENEE said that the social professionals at the facility will work with discharge planning. Snehal said that she wants patient placed in [place], which she previously was ([facility]) SW called Chavo at [facility]. He was advised of the referral. Referral was faxed to him. Radha Original Note: Patient's mother, Snehal, said that she was going home to get clothes for patient. She left her contact number [phone]. RENEE was advised that Snehal, patient's mother inquired about the status of the patient's placement. Waiting for referral packet to be complete. Plan: Inpatient psych Radha FRANCIS
[2021-04-21 21:50] VITALS: BP 109/68; PULSE 99; RESP 16; TEMP 36.4; O2SAT 98
--- NOTE | 2021-04-21 22:08 | CM.ED ---
SW Note [facility] and advised of [facility]. [facility] to [facility]. Plan: Inpatient psych Radha FRANCIS
--- NOTE | 2021-04-21 22:57 | CM.ED ---
RENEE received call from [facility]. Patient was accepted to ICU2. Dr Guerrero is accepting. [place] slip needs to be completed. RN to RN [phone]. RENEE and Macey plumber's helper updated patient's mother. She was advised [facility] accepted but if [facility] can take patient before patient is discharge she can be switched to [facility]. RENEE received call from [place] at [facility]. Patient accepted. Dr. Preston is accepting. Going to [facility] but no bed assignment. [place] Slip needs to be faxed to [phone]. RN to RN [phone]. RENEE updated patient's mother and she requested address for [facility]. Mother said that her daughter is doing better than previous psych visits to the ED. RENEE called [facility] and cancelled bed for patient as patient is going to [facility]. RENEE requested that paralegal legal secretary arrange transportation. [place] slip faxed to [facility]. plumber's helper updated Radha GROSSMAN LIS
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
--- NOTE | 2021-04-21 23:10 | CM.ED ---
RENEE faxed copy of pink slip to [facility] RENEE provided patient's mom with address and contact for [facility]. RENEE called [facility]. Advised Jessica no bed is needed for patient. Plan: [facility] Radha FRANCIS
--- NOTE | 2021-04-21 23:40 | ED.RN ---
called report to [facility] RN Jenn. [phone].
[2021-04-22 03:02] VITALS: PULSE 74; RESP 16; O2SAT 97
[2021-04-22 05:26] VITALS: RESP 17
== END 2021-04-22 05:27 ==
PROVIDERS: Emergency Provider Student in an Organized Health Care Education/Training Program; PCP Internal Medicine
DX: F20.2 Catatonic schizophrenia (principal)
CPT/HCPCS: 36415; 80048; 80307; 82077; 84703; 85025; 87426; 96372; 99282; J3486

== ENCOUNTER 2021-07-27 12:10 | Emergency (ER) | payer MEDICARE, MEDICAID, SELFPAY ==
[2021-07-27] VITALS (8 sets, daily range): BP systolic 112–142; BP diastolic 71–100; PULSE 22–125; RESP 16–26; TEMP 35.1; O2SAT 97–100; BMI 18.2
--- NOTE | 2021-07-27 12:26 | CT_ITS ---
STUDY: CT BRAIN WITHOUT CONTRAST REASON FOR EXAM: Female, 31 years old. Confusion and dizziness. History of schizophrenia. RADIATION DOSAGE (If Supplied By Facility): CTDIvol = ( 44.99 ) mGy, DLP = ( 745.49 ) mGycm TECHNIQUE: Transaxial CT imaging of the brain was performed without administration of intravenous contrast material. Individualized dose optimization techniques were used for this CT. COMPARISON: No relevant priors. FINDINGS: Normal soft tissue structures. Normal calvarium. Normal size ventricles and extra-axial spaces for the patient''s age. Normal white matter tracts of the cerebral hemispheres. Normal basal ganglia and thalami. Normal brainstem. Normal cerebellum. There is no intracranial hemorrhage. There are no findings of an acute ischemic infarction. Normal visualized paranasal sinuses. CT/Brain/Head without Contrast IMPRESSION: Normal unenhanced CT scan of the brain. Electronically Signed: Be Baker MD at 13:40 EST ,
--- NOTE | 2021-07-27 12:29 | EDS_ITS ---
HPI History of Present Illness Chief Complaint: Confusion Informant: patient and police/revenue settlements administrator Onset/Context/Timing Onset: Today Context: Gradual Onset Timing: Intermittent Quality: Dizziness Location: Generalized Worsened by: Nothing Relieved by: Nothing Narrative Narrative: Patient presents with confusion and dizziness that began today. Patient states she just felt like she needed to come to the hospital today. Patient admits to some dizziness that began last night. Patient states nothing makes it better nothing makes it worse. Patient admits to some subjective chills. Police found the patient in the hospital this morning sitting in a corner. Please noted that there was bleeding to both of her ankles. Patient does not know what happened to cause the bleeding of her ankles. Patient is alert and oriented to person, place, year, and month. Patient does not know the date. Patient does not know the president. [facility] Medical History Schizophrenia no medical history Home Medications NK 10/28/20 [History Last Taken Unknown] Unobtainable 07/27/21 [History Last Taken Unknown] Allergy/AdvReac Type Severity Reaction Status Date / Time amoxicillin trihydrate Allergy Unknown Verified 04/21/21 15:09 [From Augmentin] iodine Allergy Shortness Verified 04/21/21 15:09 of breath potassium clavulanate Allergy Unknown Verified 04/21/21 15:09 [From Augmentin] haloperidol [From Haldol] AdvReac Other Verified 04/21/21 15:09 haloperidol lactate AdvReac Other Verified 04/21/21 15:09 [From Haldol] Surgical History no surgical history no surgical history Social History Smoking Status: Never smoker ROS ROS ED Constitutional Constitutional ED: Denies chills or fever(s) Eyes Eyes: Denies blurry vision or change in vision ENT ENT ED: Denies rhinorrhea or sore throat Cardiovascular Cardiovascular: Denies chest pain or palpitations Respiratory/Chest Respiratory/Chest: Denies cough or dyspnea Gastrointestinal Gastrointestinal: Denies nausea or vomiting Genitourinary Genitourinary ED: Denies dysuria or hematuria Musculoskeletal Musculoskeletal: Denies back pain or neck pain Integumentary Denies abscess or rash Neurologic Neurologic: Denies headache(s) or weakness Allergic/Immunologic Allergic/Immunologic ED: Denies mouth swelling or urticaria EXAM Physical Exam Const Vital Signs: 07/27/21 12:13 07/27/21 12:22 07/27/21 13:30 Temperature 95.2 F L 95.2 F L Temperature Source Temporal Temporal Pulse Rate 125 H 125 H 120 H Respiratory Rate 18 18 21 H Blood Pressure 142/100 H 142/100 H 134/91 H Blood Pressure Mean 114 114 105 Pulse Ox 100 100 97 Oxygen Delivery Method Room Air Room Air Room Air 07/27/21 14:33 07/27/21 15:00 07/27/21 16:00 Temperature Temperature Source Pulse Rate 117 H 122 H 22 L Respiratory Rate 26 H 20 H Blood Pressure 141/92 H 137/94 H Blood Pressure Mean 108 108 Pulse Ox 97 98 Oxygen Delivery Method Room Air Room Air Positive well nourished and well developed General Appearance ED: well developed HEENT Reports moist mucous membranes Neck supple and no JVD Resp normal respiratory effort and clear to auscultation bilaterally Cardio regular rate, regular rhythm and no murmurs GI normal to inspection, nondistended, normoactive bowel sounds and non-tender Palpation: soft Extremity normal to inspection General Extremety ED: Negative for edema or tenderness General Extremity: Negative for edema Neuro CN's II-XII intact bilaterally and no sensory deficits noted Sensorium / Orientation: alert and orientation impaired Motor Exam: strength 5/5 throughout Psych Attitude: withdrawn Activity / Motor Behavior: appropriate eye contact Speech: slow and soft Mood & Affect: flat affect Thought Process: confused Thought Content: No suicidality, No homicidality and No hallucination(s) Attention / Concentration: attention grossly intact Skin no rashes or lesions noted Skin Narrative: There is some dried blood noted over the posterior aspect of the heels bilaterally. There is no laceration noted. There is no active bleeding noted. MDM MDM MDM Narrative Medical decision making narrative: CBC was within normal limits. Comprehensive metabolic profile was normal except for an elevated total bilirubin 4.2. Acetaminophen and salicylate levels were negative. Serum alcohol level was negative. Serum hCG was negative. CT scan of the brain was obtained. There is no acute intracranial abnormality. Urinalysis is ordered and is pending. medical case worker was in to evaluate the patient. She was able to contact patient's mother. medical case worker and the patient's mother agree the patient would benefit from inpatient psychiatric facility. She is attempting to get the patient placed in a psychiatric facility at this time. Care of the patient was turned over to the oncoming physician pending placement. Lab Data Attestation: I reviewed the patient's lab results. Labs: Laboratory Results - last 24 hr 07/27/21 07/27/21 07/27/21 12:50 12:50 12:50 WBC 9.1 RBC 4.74 Hgb 15.3 H Hct 42.9 MCV 90.5 MCH 32.3 H MCHC 35.7 RDW Std Deviation 39.6 RDW Coeff of Mitchel 12.0 Plt Count 293 MPV 9.0 Immature Gran % (Auto) 0.500 Neut % (Auto) 70.6 H Lymph % (Auto) 20.0 Harlan % (Auto) 7.5 Eos % (Auto) 0.9 Baso % (Auto) 0.5 Absolute Neuts (auto) 6.4 Absolute Lymphs (auto) 1.83 Nucleated RBC % 0 Sodium 136 Potassium 4.0 Chloride 105 Carbon Dioxide 26.0 Anion Gap 5 BUN 10 Creatinine 0.71 Estim Creat Clear Calc 81.17 Est GFR (MDRD) Af Amer 122 Est GFR (MDRD) Non-Af 101 BUN/Creatinine Ratio 14.0 Glucose 102 Calcium 9.3 Total Bilirubin 4.20 H AST 17 ALT 20 Alkaline Phosphatase 83 Total Protein 8.0 Albumin 4.3 Globulin 3.7 Albumin/Globulin Ratio 1.2 Serum , Qual Salicylates < 1.7 L Acetaminophen < 2.0 L Ethyl Alcohol < 3.0 07/27/21 12:50 WBC RBC Hgb Hct MCV MCH MCHC RDW Std Deviation RDW Coeff of Mitchel Plt Count MPV Immature Gran % (Auto) Neut % (Auto) Lymph % (Auto) [place]lan % (Auto) Eos % (Auto) Baso % (Auto) Absolute Neuts (auto) Absolute Lymphs (auto) Nucleated RBC % Sodium Potassium Chloride Carbon Dioxide Anion Gap BUN Creatinine Estim Creat Clear Calc Est GFR (MDRD) Af Amer Est GFR (MDRD) Non-Af BUN/Creatinine Ratio Glucose Calcium Total Bilirubin AST ALT Alkaline Phosphatase Total Protein Albumin Globulin Albumin/Globulin Ratio Serum , Qual NEGATIVE Salicylates Acetaminophen Ethyl Alcohol Radiography Diagnostic Testing: Clinical Impression(s) from Imaging Studies Brain CT 07/27/21 12:26 IMPRESSION: Normal unenhanced CT scan of the brain. Electronically Signed: Be Baker MD at 13:40 EST , Discharge Plan Triage Chief Complaint: Confusion ED Provider: Edu Milian Dx/Rx/DC Orders Clinical Impression: Schizophrenia Prescriptions: No Action NK RF: 0 Unobtainable RF: 0 Primary Care Provider: Care Physician,No Primary Referrals: Care Physician,No Primary [Primary Care Provider] - Disposition Disposition: Psychiatric Hospital or Unit
[2021-07-27 13:09] LABS: Absolute Lymphocyte Count 1.83 X10^3/uL (0.83-4.51); Absolute Neutrophil Count 6.4 X10^3/uL (2.0-7.7); Basophil# 0.05 X10^3/uL; Basophil% 0.5 % (0-1); Eosinophil# 0.08 X10^3/uL; Eosinophils% 0.9 % (0-5); Hematocrit 42.9 % (37-47); Hemoglobin 15.3 g/dL (12.0-15.0); Lymphocyte # 1.83 X10^3/ul (0.83-4.51); Mean Corp Hgb Conc 35.7 g/dL (32-36); Mean Corpuscular Hgb 32.3 pg (27.0-32.0); Mean Corpuscular Volume 90.5 fL (81-99); Monocyte# 0.69 X10^3/uL; Monocyte% 7.5 % (0-10); NRBC Flagged by Analyzer 0 % (0-5); Neutrophil # 6.44 X10^3/uL (2.7-7.7); Neutrophil % 70.6 % (47-70); Platelet Count 293 K/mm3 (150-450); RBC Distribution Width SD 39.6 fl (35.1-43.9); Red Blood Count 4.74 M/mm3 (4.2-5.4); White Blood Count 9.1 K/mm3 (4.4-11.0)
--- NOTE | 2021-07-27 13:16 | ED.RN ---
Mother-Snehal, person of contact, phone number [phone]
[2021-07-27 13:28] LABS: ALB/GLOB Ratio 1.2 RATIO (0.9-2.4); AST(SGOT) 17 U/L (15-37); Alanine Aminotransfer ALT/SGPT 20 U/L (13-56); Albumin, Serum 4.3 g/dL (3.2-5.0); Alkaline Phosphatase 83 U/L (45-117); Anion Gap 5 (5-15); BUN 10 mg/dL (7-18); Calcium,Total 9.3 mg/dL (8.5-10.1); Chloride 105 mmol/L (98-107); Creatinine, Serum 0.71 mg/dL (0.55-1.02); EST Glomerular Filtration Rate 101 mL/min (>60); Est Glom Filt Rate - Afr Amer 122 mL/min (>60); Estimated Creatinine Clearance 81.17 ml/min; Globulin 3.7 g/dL (2.2-4.2); Glucose 102 mg/dL (74-106); Sodium Level 136 mmol/L (136-145)
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
[2021-07-27 13:46] LABS: Internal QC Validated? YES +Cl - CLEAR BKGD; Pregnancy, Serum, hCG Quali. NEGATIVE Negative
[2021-07-27 14:11] LABS: Acetaminophen (Tylenol) Level < 2.0 ug/mL (10.0-30.0); Alcohol, Blood (Medical)-Serum < 3.0 mg/dL; Salicylate < 1.7 mg/dL (2.8-20.0)
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
--- NOTE | 2021-07-27 16:41 | ED.RN ---
Patient up to bathroom, cup given. Patient urinated in toilet and not in cup.
[2021-07-27 19:05] LABS: Red Blood Cells-Urine 0 SEEN /hpf (0-5); White Blood Cells 0 SEEN /hpf (0-5)
[2021-07-27 19:13] LABS: Color, Urine Yellow (Yellow); Glucose, Dipstick Normal (Normal); Leukocyte Esterase-Dipstick Negative /ul (Negative); Nitrite-Dipstick Negative (Negative); Occult Blood-Urine Negative /ul (Negative); Protein-Dipstick Negative (Negative); Specific Gravity, Urine 1.025 (1.002-1.030); Urine Bilirubin Dipstick Negative (Negative); Urine Clarity Clear (Clear); Urine Urobilinogen Normal (Normal)
[2021-07-27 19:17] LABS: Ketone-Dipstick 150 mg/dl (Negative)
[2021-07-27 19:22] LABS: Bacteria RARE /hpf (None Seen); Mucous, Urine RARE /hpf (<or=2+); Squamous Epithelial Cells - UA 5-10 SEEN /hpf (5-10)
[2021-07-27 19:29] LABS: Amphetamine Urine VISTA NEGATIVE (<1000 ng/mL); Barbiturate Urine VISTA NEGATIVE (< 200 ng/mL); Benzodiazepine Urine VISTA NEGATIVE (< 200 ng/mL); Cocaine Urine VISTA NEGATIVE (< 300 ng/mL); Ecstacy Urine VISTA NEGATIVE (< 500 ng/mL); Methadone Urine VISTA NEGATIVE (< 300 ng/mL); PCP Urine VISTA NEGATIVE (< 25 ng/mL); THC Urine VISTA NEGATIVE (< 50 ng/mL); Vista UDS pH Range 5
--- NOTE | 2021-07-27 19:37 | CM.ED ---
Social Work Telephone call to [place], [facility]. Voicemail left. Referral faxed. Will continue to follow. Narayan GROSSMAN, JINAS
--- NOTE | 2021-07-27 19:45 | CM.ED ---
Social Work Telephone call to Malini Eric. Referral made. Clinical information faxed. Will continue to follow. Narayan GROSSMAN, BAILEY
--- NOTE | 2021-07-27 21:11 | CM.ED ---
Social Work Telephone call to [place], [facility]. Case has been received and they are still reviewing it. Will continue to follow. Narayan GROSSMAN, BAILEY
--- NOTE | 2021-07-27 21:53 | CM.ED ---
Social Work Telephone call received from Edu Holloway. Patient is currently on wait list. Edu reports it appears that patient would be accepted but is not able to guarantee this. Edu request for phone call after 9:30am if patient is still in ED and needs placed. Telephone call to nishant Eric. Case still pending. This social service director provided main ED number if outcome is not determined before 22:30, end of social work shift. This social service director went back to speak with patient about above information. Patient would like to wait to see if placement is possible to [facility]. Telephone call to Jayashree Eric. Referral canceled. Medical team updated. Social Work to continue to follow for placement tomorrow. Narayan GROSSMAN, BAILEY
[2021-07-28] VITALS (16 sets, daily range): BP systolic 108–146; BP diastolic 62–106; PULSE 74–118; RESP 12–18; O2SAT 94–99
--- NOTE | 2021-07-28 15:11 | CM.ED ---
RENEE Note SW received voice mail from [facility] noting that they have no beds today and patient would need to be reevaluated tomorrow for admission. RENEE called patient's mother, Snehal and updated her that [facility] has no beds. RENEE explained that [facility] and [facility] are under the same umbrella program. Snehal said that she was comfortable with patient going there as long as she has a ride home. RENEE explained that due to patient's insurance it should not be issue getting a ride home. RENEE called [facility]. They have beds. SW faxed referral to [facility]. RENEE called [facility]. They have beds. RENEE faxed referral to [facility] is able to accept patient. Accepting MD is Dr. Friedman. [facility]. RENEE advised patient is going voluntary. [facility] will fax voluntary to this credit underwriter. RENEE met with patient. Patient was explained no beds at [facility]. Patient was in agreement with going to [facility]. RENEE updated patient's mother who stated that she will come in to visit with patient prior to her going to [facility]. Plan: [facility]. Radha FRANCIS
--- NOTE | 2021-07-28 17:18 | CM.ED ---
Addendum entered by Radha Garcia 07/28/21 21:00: RENEE was advised by KALEY Garay that ride would be here in 4 hours. RENEE called and left voice mail for Snehal, patient's mother advising that patient would be leaving in 4 hours approximately. Radha Jose FRANCIS Addendum entered by Radha Garcia 07/28/21 20:16: RENEE spoke to Ali and she said that due to the exigent circumstance that if transport is ok transporting the patient then patient can sign voluntary when she gets there. RENEE spoke to patient's mother, Snehal and updated her. She is comfortable with patient going to hospital and signing voluntary when she gets there. SW attempted to meet with patient but patient is asleep. SW local government legislator will awaken patient when she leaves. RENEE spoke to RN and dynamic balancer and they advised that there should not be any issue with patient being transported to [facility] without a pink slip. RENEE called Jose Manuel from [facility] and confirmed that patient will sign voluntary when she gets to [facility] due to it being exigent circumstances (RENEE unable to get faxes or emails from [facility] and this bid writer has been working on it all afternoon). Original Note: RENEE made numerous phone calls to [facility] requesting that they refax the voluntary as this bid writer has not received it. RENEE has spend numerous phone calls and even faxed [facility] to get voluntary faxed to this bid writer. Radha FRANCIS
--- NOTE | 2021-07-28 21:26 | CM.ED ---
RENEE got fax from [facility] which was the voluntary consent for treatment. Met with patient and she signed the voluntary consent for treatment. RENEE faxed the voluntary to [facility]. RENEE put original in packet for patient's transfer. Patient's mother was updated. Plan: [facility] Radha FRANCIS
[2021-07-29 00:11] VITALS: BP 124/82; PULSE 112; RESP 20; O2SAT 99
[2021-07-29 01:15] VITALS: RESP 16
[2021-07-29 02:33] VITALS: RESP 16
[2021-07-29 03:15] VITALS: BP 140/103; PULSE 100; RESP 16; O2SAT 96
== END 2021-07-29 04:52 ==
PROVIDERS: Emergency Provider Emergency Medicine; Visit Provider Emergency Medicine
DX: F20.9 Schizophrenia, unspecified (principal)
CPT/HCPCS: 70450; 80053; 80307; 80329; 81001; 82077; 84703; 85025; 87426; 99285; G0480

== ENCOUNTER 2022-06-29 19:53 | Emergency (ER) | payer MEDICARE, MEDICAID, SELFPAY ==
[2022-06-29 19:54] VITALS: BP 153/91; PULSE 109; RESP 16; TEMP 36.4; O2SAT 99; BMI 28.5
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
--- NOTE | 2022-06-29 20:26 | RAD_ITS ---
INDICATION: foreign body EXAMINATION/TECHNIQUE: X-RAY - RIGHT XR Foot Min 3 Views 3 VIEWS COMPARISON: None. FINDINGS: SOFT TISSUES: No soft tissue swelling or gas. No radiopaque foreign body. BONES/JOINTS: No acute fracture or subluxation.. Normal alignment. Preservation of the joint space.. No sclerotic or destructive changes observed. RAD/Foot min 3 Views IMPRESSION: Negative. Electronically Signed: Andrey Andres MD at 21:21 EST ,
[2022-06-29 20:49] LABS: Absolute Lymphocyte Count 2.23 X10^3/uL (0.83-4.51); Absolute Neutrophil Count 5.7 X10^3/uL (2.0-7.7); Basophil# 0.06 X10^3/uL; Basophil% 0.7 % (0-1); Eosinophil# 0.33 X10^3/uL; Eosinophils% 3.6 % (0-5); Hematocrit 38.1 % (37-47); Hemoglobin 13.1 g/dL (12.0-15.0); Lymphocyte # 2.23 X10^3/ul (0.83-4.51); Lymphocyte % 24.4 % (19-41); Mean Corp Hgb Conc 34.4 g/dL (32-36); Mean Corpuscular Hgb 31.4 pg (27.0-32.0); Mean Corpuscular Volume 91.4 fL (81-99); Mean Platelet Vol. 10.1 fl (6.2-12.0); Monocyte# 0.82 X10^3/uL; NRBC Flagged by Analyzer 0 % (0-5); Neutrophil # 5.66 X10^3/uL (2.7-7.7); POSITIVE COUNT YES; Platelet Count 219 K/mm3 (150-450); RBC Distribution Width CV 12.2 % (11.6-14.6); RBC Distribution Width SD 40.5 fl (35.1-43.9); Red Blood Count 4.17 M/mm3 (4.2-5.4); White Blood Count 9.1 K/mm3 (4.4-11.0)
[2022-06-29] MEDS: Diphth,Pertuss(Acell),Tet Vac 0.5 ML Vial IM (20:52)
[2022-06-29 20:53] LABS: Differential Indicated SCAN CRITERIA MET
[2022-06-29 20:59] LABS: Anion Gap 5 (5-15); BUN 10 mg/dL (7-18); BUN/Creat Ratio 15.8 RATIO (10-20); Calcium,Total 9.1 mg/dL (8.5-10.1); Chloride 108 mmol/L (98-107); Creatinine, Serum 0.63 mg/dL (0.55-1.02); EST Glomerular Filtration Rate 115 mL/min (>60); Est Glom Filt Rate - Afr Amer 139 mL/min (>60); Estimated Creatinine Clearance 100.04 ml/min; Glucose 98 mg/dL (74-106); Potassium 3.9 mmol/L (3.5-5.1); Sodium Level 140 mmol/L (136-145)
--- NOTE | 2022-06-29 21:00 | RAD_ITS ---
INDICATION: foreign body EXAMINATION/TECHNIQUE: X-RAY - LEFT XR Foot Min 3 Views 3 VIEWS COMPARISON: None. FINDINGS: SOFT TISSUES: No soft tissue swelling or gas. Tiny radiopaque foreign body noted within the subcutaneous fat of the plantar surface of the heel possibly representing a piece of glass BONES/JOINTS: No acute fracture or subluxation.. Normal alignment. Preservation of the joint space.. No sclerotic or destructive changes observed. RAD/Foot min 3 Views IMPRESSION: Possible piece of glass within the subcutaneous fat of the left heel Electronically Signed: Andrey Andres MD at 21:23 EST ,
[2022-06-29 21:09] LABS: Internal QC Validated? YES +Cl - CLEAR BKGD; Pregnancy, Serum, hCG Quali. NEGATIVE Negative
[2022-06-29 21:13] LABS: Alcohol, Blood (Medical)-Serum < 3.0 mg/dL
[2022-06-29 21:14] LABS: Amphetamine Urine VISTA NEGATIVE (<1000 ng/mL); Barbiturate Urine VISTA NEGATIVE (< 200 ng/mL); Benzodiazepine Urine VISTA NEGATIVE (< 200 ng/mL); Cocaine Urine VISTA NEGATIVE (< 300 ng/mL); Ecstacy Urine VISTA NEGATIVE (< 500 ng/mL); Methadone Urine VISTA NEGATIVE (< 300 ng/mL); PCP Urine VISTA NEGATIVE (< 25 ng/mL); THC Urine VISTA NEGATIVE (< 50 ng/mL); Vista UDS pH Range 5
[2022-06-29 21:17] LABS: Differential Comment SCANNED
[2022-06-29] MEDS: Lidocaine 1% (20 ml mdv) 20 ML Vial INFILT (22:58)
[2022-06-29] MEDS: Doxycycline 100 MG CAPSULE PO (22:58)
[2022-06-29 23:07] VITALS: BP 129/78; PULSE 81; RESP 16; O2SAT 98
--- NOTE | 2022-06-30 04:55 | NURSING ---
DECLINED AT [facility]
[2022-06-30 05:22] VITALS: BP 139/94; PULSE 103; RESP 16; O2SAT 96
--- NOTE | 2022-06-30 06:10 | EKG12_ITS ---
Test Reason : MENTAL HEALTH Blood Pressure : / mmHG Vent. Rate : 111 BPM Atrial Rate : 111 BPM P-R Int : 130 ms QRS Dur : 064 ms QT Int : 354 ms P-R-T Axes : 061 057 047 degrees QTc Int : 481 ms Sinus tachycardia Otherwise normal ECG Confirmed by FRED HAMEED, ELI ([id number]), newspaper photo editor JAYLEEN CLARK ([id number]) on 07/01/2022 1:06:20 PM Referred By: ARVIN Confirmed By:BING IBARRA MD
[2022-06-30 06:25] VITALS: RESP 16
[2022-06-30 07:00] VITALS: RESP 16
[2022-06-30 08:00] VITALS: RESP 14
[2022-06-30 09:30] VITALS: BP 129/88; PULSE 94; RESP 16; TEMP 37; O2SAT 97
--- NOTE | 2022-06-30 09:48 | NURSING ---
PENDING [facility]
--- NOTE | 2022-06-30 09:58 | CM.ED ---
SW Note RENEE called franki at [facility]. Franki said patient is pending at [facility]. RENEE called Pili at [facility]. Pili is working on the referral. Radha FRANCIS
--- NOTE | 2022-06-30 10:33 | CM.ED ---
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 Accepting MD is Terry. Adult Unit. RN to RN is [phone]. RENEE updated Neyda at [facility]. Radha FRANCIS
--- NOTE | 2022-06-30 10:39 | NURSING ---
CALLED [facility], ETA IS 90 MIN
[2022-06-30 11:58] VITALS: RESP 16
== END 2022-06-30 11:59 ==
LOC: ED 20:26
PROVIDERS: Emergency Provider Emergency Medicine; Visit Provider Emergency Medicine
DX: R45.4 Irritability and anger (principal); F20.9 Schizophrenia, unspecified; R45.6 Violent behavior; Z18.81 Retained glass fragments
CPT/HCPCS: 73630; 80048; 80307; 82077; 84703; 85025; 87811; 90715; 93005; 96372; 99285

== ENCOUNTER 2023-06-23 19:42 | Emergency (ER) | payer MEDICARE, MEDICAID, SELFPAY ==
[2023-06-23 19:47] VITALS: BP 175/102; PULSE 122; RESP 18; TEMP 36.1; O2SAT 98; BMI 20.8
[2023-06-23 19:56] VITALS: O2SAT 100
--- NOTE | 2023-06-23 19:56 | RAD_ITS ---
STUDY: X-RAY CHEST REASON FOR EXAM: Female, 33 years old. Chest pain TECHNIQUE: Single AP portable view of the chest. COMPARISON: 09/02/2018 FINDINGS: EKG leads overlie the chest The lungs are clear and expanded. There is no demonstrated pleural abnormality. Normal size heart. Normal mediastinum and jan. Normal visualized pulmonary arteries. Normal visualized aortic arch and descending thoracic aorta. Normal visualized thoracic spine. Normal visualized ribs, clavicles, and shoulders. There is no demonstrated abnormality of the visualized soft tissue structures of the upper abdomen. RAD/Chest 1 View (Portable) IMPRESSION: Normal x-ray examination of the chest. Electronically Signed: Rajat Hartmann MD at 20:27 [facility] ,
[2023-06-23 20:13] LABS: Absolute Lymphocyte Count 2.91 X10^3/uL (0.83-4.51); Absolute Neutrophil Count 5.9 X10^3/uL (2.0-7.7); Basophil# 0.05 X10^3/uL; Basophil% 0.5 % (0-1); Eosinophil# 0.25 X10^3/uL; Eosinophils% 2.5 % (0-5); Hematocrit 43.8 % (37-47); Hemoglobin 15.8 g/dL (12.0-15.0); Lymphocyte # 2.91 X10^3/ul (0.83-4.51); Lymphocyte % 29.2 % (19-41); Mean Corp Hgb Conc 36.1 g/dL (32-36); Mean Corpuscular Volume 88.8 fL (81-99); Mean Platelet Vol. 9.3 fl (6.2-12.0); Monocyte# 0.87 X10^3/uL; Monocyte% 8.7 % (0-10); NRBC Flagged by Analyzer 0 % (0-5); Neutrophil # 5.86 X10^3/uL (2.7-7.7); Neutrophil % 58.8 % (47-70); Platelet Count 362 K/mm3 (150-450); RBC Distribution Width CV 11.9 % (11.6-14.6); RBC Distribution Width SD 38.3 fl (35.1-43.9); Red Blood Count 4.93 M/mm3 (4.2-5.4)
--- OUTSIDE RECORDS SUMMARY | 2023-06-23 20:13 | XMS RPT_ITS | CCD ---
Author Name Unknown Address [address] [place] [address] Organization [facility] Care Team Providers Care Compounding Scaler Name Role Phone Jeremie Chaudhari Primary Care Provider [phone] Unavailable Primary Care Provider CLAIRE Ochoa Attending Unavailable JEREMIE CHAUDHARI Primary Care Unavailable Allergies Allergy Classification Reported Allergen(s) Allergy Type Date of Onset Reaction(s) Facility (4 sources) Clindamycin Drug Allergy 9 [place], [place] (4 sources) Haloperidol Drug Allergy 9 [place] (4 sources) Iodine Drug Allergy 9 [place] (4 sources) moxifloxacin Drug Allergy 9 [place] (5 sources) Penicillins; Translations: [PENICILLINS] Propensity to adverse reactions to drug 5 [place] (7 sources) Amoxicillin-Pot Clavulanate; Translations: [AMOXICILLIN-POT CLAVULANATE] Propensity to adverse reactions to drug 5 Hives, Rash [place] (4 sources) Iodides Propensity to adverse reactions to drug 8 Shortness Of Breath [place] (3 sources) novak allergenic extract; Translations: [NOVAK] Drug Allergy 9 [facility] (3 sources) Clavulanate; Translations: [CLAVULANIC ACID] Drug Allergy 5 GI Upset [facility] (3 sources) Contrast media; Translations: [CONTRAST DYE] Propensity to adverse reactions 8 Shortness of Breath [facility] (3 sources) Lactose; Translations: [LACTOSE] Drug Allergy 8 Diarrhea [facility] Work Phone: (2 sources) Penicillins Propensity to adverse reactions to drug 5 Unknown [facility] (2 sources) Environmental allergies [Other] Propensity to adverse reactions 9 [facility] (2 sources) Oranges [Other] Propensity to adverse reactions 9 [facility] (1 source) OTHER; Translations: [OTHER] Propensity to adverse reactions (disorder) 9 [facility] Main [facility] Medications Current Medications Medication Drug Class(es) Dates Sig (Normalized) Sig (Original) 200 actuat albuterol 0.09 mg/actuat metered dose inhaler (2 sources) beta2-Adrenergic Agonist Start: 05-03-2019 albuterol sulfate HFA 108 (90 Base) MCG/ACT inhaler 2 puff Completed/Discontinued Medications Medication Drug Class(es) Dates Sig (Normalized) Sig (Original) acetaminophen 500 mg oral tablet (3 sources) Start: 05-04-2019 End: 05-04-2019 acetaminophen (TYLENOL) tablet 1,000 mg Problems Active Problems Problem Classification Problem Date Documented Da te Episodic/Chronic Abdominal hernia (1 source) Hiatal hernia; Translations: [Hiatal hernia] Episodic Anxiety disorders (2 sources) Anxiety state; Translations: [Generalized anxiety disorder] Onset: 8 02-25-2017 Chronic Cardiac dysrhythmias (2 sources) Paroxysmal supraventricular tachycardia; Translations: [Supraventricular tachycardia] Onset: 9 06-20-2008 Chronic Esophageal disorders (2 sources) Gastroesophageal reflux disease without esophagitis; Translations: [Gastro-esophageal reflux disease without esophagitis] Onset: 8 09-02-2017 Chronic Malaise and fatigue (1 source) Other fatigue; Translations: [Lethargic ] Onset: 3 Episodic Mood disorders (1 source) Unspecified mood [affective] disorder; Translations: [Mild mood disorder (HCC)] Onset: 3 Chronic Other aftercare (1 source) Other fpc (current) drug therapy; Translations: [On angiotensin receptor blockers (ARB)] Onset: 3 Episodic Other gastrointestinal disorders (2 sources) Irritable bowel syndrome; Translations: [Irritable bowel syndrome without diarrhea] Onset: 8 12-19-2007 Chronic Other skin disorders (1 source) Facial swelling ; Translations: [Localized swelling, mass and lump, head] Episodic Other skin disorders (1 source) Disorder of skin; Translations: [Disorder of the skin and subcutaneous tissue, unspecified] Episodic Other upper respiratory disease (2 sources) Allergic rhinitis; Translations: [Allergic rhinitis, unspecified] 06-29-2019 Chronic Substance-related disorders (1 source) Other psychoactive substance abuse, uncomplicated; Translations: [Antidepressant type abuse, continuous (HCC)] Onset: 3 Chronic Unclassified (1 source) Pleura finding; Translations: [Pleural nodule] Past or Other Problems Problem Classification Problem Date Documented Da te Episodic/Chronic Acute bronchitis (1 source) Acute bronchitis with bronchospasm; Translations: [Acute bronchitis with bronchospasm] Episodic Calculus of urinary tract (2 sources) History of calculus of kidney; Translations: [Personal history of urinary calculi] Onset: 05-12-2011 05-12-2011 Episodic Cancer of cervix (2 sources) Atypical squamous cells of undetermined significance on cervical Papanicolaou smear; Translations: [Atypical squamous cells of undetermined significance on cytologic smear of cervix (ASC-US)] Onset: 11-03-2017 11-03-2017 Episodic Disorders of teeth and jaw (3 sources) Infection of tooth; Translations: [Periapical abscess without sinus] Onset: 08-02-2022 Episodic Fever of unknown origin (1 source) Fever; Translations: [Fever, unspecified fever cause] Episodic Nonspecific chest pain (2 sources) Chest pain; Translations: [Chest pain, unspecified type] Episodic Other lower respiratory disease (1 source) Cough; Translations: [Cough] Episodic Other skin disorders (1 source) Disorder of the skin and subcutaneous tissue, unspecified; Translations: [Skin abnormality] Onset: 08-02-2022 Episodic Other skin disorders (1 source) Localized swelling, mass and lump, head; Translations: [Facial swelling] Onset: 08-02-2022 Episodic Results Test Name Value Interpretation Reference Range Facil ity Vital Signs Date Time Vital Sign Value Performing Clinician Facility 08-02-2022 11:13-0500 Body temperature 98.2 [degF] Claire Older WEB SITE SPECIALIST.FOOD MOBILE DRIVER Work Phone: [facility] 08-02-2022 11:13-0500 Body weight 45.36 kg Claire Older WEB SITE SPECIALIST.FOOD MOBILE DRIVER Work Phone: [facility] 08-02-2022 11:13-0500 Diastolic blood pressure 86 mm[Hg] Claire Older WEB SITE SPECIALIST.FOOD MOBILE DRIVER Work Phone: [facility] 08-02-2022 11:13-0500 Heart rate 92 /min Claire Older WEB SITE SPECIALIST.FOOD MOBILE DRIVER Work Phone: [facility] 08-02-2022 11:13-0500 Respiratory rate 14 /min Claire Older WEB SITE SPECIALIST.FOOD MOBILE DRIVER Work Phone: [facility] 08-02-2022 11:13-0500 Systolic blood pressure 127 mm[Hg] Claire Older WEB SITE SPECIALIST.FOOD MOBILE DRIVER Work Phone: [facility] 07-27-2022 13:44-0500 Body temperature 97.59 [degF] [facility] WEB SITE SPECIALIST.FOOD MOBILE DRIVER Work Phone: [facility] 07-27-2022 13:44-0500 Body weight 46.27 kg [facility] WEB SITE SPECIALIST.FO[employer] MOBILE DRIVER Work Phone: [facility] 07-27-2022 13:44-0500 Diastolic blood pressure 60 mm[Hg] [facility] WEB SITE SPECIALIST.FO[employer] MOBILE DRIVER Work Phone: [facility] 07-27-2022 13:44-0500 Heart rate 92 /min [facility] WEB SITE SPECIALIST.FOOD MOBILE DRIVER Work Phone: [facility] 07-27-2022 13:44-0500 Respiratory rate 16 /min [facility] WEB SITE SPECIALIST.FOOD MOBILE DRIVER Work Phone: [facility] 07-27-2022 13:44-0500 SaO2% (BldA) [Mass fraction] 98 % [facility] WEB SITE SPECIALIST.FO[employer] MOBILE DRIVER Work Phone: [facility] 07-27-2022 13:44-0500 Systolic blood pressure 102 mm[Hg] Andrey Nowakteressa MILLEREVAN Work Phone: [facility] 05-23-2019 13:26-0500 Respiratory rate 14 /min Michael Villegas MD Work Phone: [facility] Work Phone: 05-23-2019 13:15-0500 Diastolic blood pressure 85 mm[Hg] Michael Villegas MD Work Phone: [facility] Work Phone: 05-23-2019 13:15-0500 Heart rate 102 /min Michael Villegas MD Work Phone: [facility] Work Phone: 05-23-2019 13:15-0500 SaO2% (BldA) [Mass fraction] 99 % Michael Villegas MD Work Phone: [facility] Work Phone: 05-23-2019 13:15-0500 Systolic blood pressure 131 mm[Hg] Michael Villegas MD Work Phone: [facility] Work Phone: 05-23-2019 12:10-0500 Body mass index (BMI) [Ratio] 24.51 kg/m2 Michael Villegas MD Work Phone: [facility] Work Phone: 05-23-2019 12:10-0500 Body temperature 97.81 [degF] Michael Villegas MD Work Phone: [facility] Work Phone: 05-23-2019 12:10-0500 Body weight 60.78 kg Michael Villegas MD Work Phone: [facility] Work Phone: 05-19-2019 20:11-0500 BP Diastolic 84 mm[Hg] [facility] [place] 05-19-2019 20:11-0500 BP Systolic 127 mm[Hg] [facility] [place] 05-19-2019 20:11-0500 Pulse (Heart Rate) 94 /min [facility] 05-19-2019 20:11-0500 Respiratory Rate 20 /min [facility], [place] 05-19-2019 17:46-0500 Pulse Oximetry 97 % [facility] [place] 05-19-2019 16:40-0500 BMI (Body Mass Index) 24.87 kg/m2 [facility] 05-19-2019 16:40-0500 Body Temperature 97.59 [degF] [facility], [place] 05-19-2019 16:40-0500 Body weight 61.69 kg [facility] [place] 05-19-2019 16:40-0500 Height 157.5 cm [facility] [place] 05-04-2019 20:57-0500 Body Temperature 101.61 [degF] [facility], [place] 05-04-2019 20:57-0500 Pulse (Heart Rate) 125 /min [facility], [place] 05-04-2019 20:57-0500 Pulse Oximetry 96 % [facility] , [place] 05-04-2019 20:57-0500 Respiratory Rate 18 /min [facility] 05-04-2019 20:34-0500 BP Diastolic 92 mm[Hg] [facility] , [place] 05-04-2019 20:34-0500 BP Systolic 146 mm[Hg] [facility] , [place] 05-03-2019 23:35-0500 BP Diastolic 72 mm[Hg] [facility] , [place] 05-03-2019 23:35-0500 BP Systolic 124 mm[Hg] [facility] [place] 05-03-2019 23:35-0500 Pulse (Heart Rate) 108 /min [facility] 05-03-2019 21:10-0500 Body Temperature 99.61 [degF] [facility], [place]ELISSA 05-03-2019 21:10-0500 Pulse Oximetry 99 % Raudel Patel [facility] MELISSA 05-03-2019 21:10-0500 Respiratory Rate 18 /min Raudel Patel [facility] MELISSA Johnson 05-03-2019 20:07-0500 Body weight 64.4 kg Raudel Patel [facility] MELISSA Encounters Encounter Date Encounter Type Care Provider Facility Start: 05-25-2023 End: 05-26-2023 ambulatory CLAIRE CARUSO Facility:[facility] Start: 08-02-2022 End: 08-03-2022 ambulatory CLAIRE Billy SHADY Facility:[facility] Start: 08-02-2022 End: 08-02-2022 Patient encounter procedure Claire Older WEB SITE SPECIALIST.FOOD MOBILE DRIVER Work Phone: Internal [facility] Procedures Date Procedure Procedure Detail Performing Clinician Start: 05-23-2019 Ecg routine ecg w/le ast 12 lds w/i&r Michael Villegas MD Work Phone: Start: 05-19-2019 Ct angiography chest w/contrast/noncontrast Kenny Rodriguez Work Phone: Start: 05-19-2019 Radiologic exam ches t 2 views Kenny Rodriguez Work Phone: Start: 05-19-2019 Assay of magnesium Gustavo n Vandana Rodriguez Work Phone: Start: 05-19-2019 Assay of phosphorus inorganic Kenny Rodriguez Work Phone: Start: 05-19-2019 Assay of thyroid stimulating hormone tsh Kenny Rodriguez Work Phone: Start: 05-19-2019 Assay of troponin quantitative Kenny Rodriguez Work Phone: Start: 05-19-2019 Blood count complete auto&auto difrntl wbc Kenny Rodriguez Work Phone: Start: 05-19-2019 Comprehensive metabo lic panel Kenny Rodriguez Work Phone: Start: 05-19-2019 Fibrin dgradj produc ts d-dimer quantitative Kenny Vandana Rodriguez Work Phone: Start: 05-19-2019 Gonadotropin chorion ic qualitative Kenny Vandana Rodriguez Work Phone: Start: 05-19-2019 MANUAL DIFFERENTIAL Mt Rodriguez Work Phone: Start: 05-19-2019 Ecg routine ecg w/le ast 12 lds w/i&r Kenny Vandana Rodriguez Work Phone: Start: 05-03-2019 Radiologic exam ches t 2 views [facility] Work Phone: Start: 05-03-2019 Urine test visual color cmprsn meths [facility] Work Phone: Start: 05-03-2019 Urnls dip stick/tabl et rgnt auto w/o microscopy [facility] Work Phone: Start: 05-03-2019 Assay of lipase [facility] Work Phone: Start: 05-03-2019 Assay of magnesium [facility] Work Phone: Start: 05-03-2019 Blood count complete auto&auto difrntl wbc [facility] Work Phone: Start: 05-03-2019 Comprehensive metabo lic panel [facility] Work Phone: Plan of Treatment Date Care Activity Detail Author Start: 07-16-2029 Urine microalbumin profile DTAP,TDAP,TD (6 - Td or Tdap) [facility] Start: 09-26-2022 HPV TESTING HPV TESTING [facility] Start: 09-26-2022 PAP TESTING PAP TESTING [facility] Start: 06-13-2022 DEPRESSION ASSESSMENT DEPRESSION ASS ESSMENT [facility] Start: 02-11-2022 Influenza vaccination INFLUENZA (#1) [facility] Start: 02-11-2019 Influenza vaccination Flu vaccine (# 1) [place], [place] Start: 2007 HIV SCREENING HIV SCREENING [facility] Start: 1989 COVID-19 VACCINE (#1) COVID-19 VACCI NE (#1) [facility] EKG 12 [facility] [place] [place] [place] [facility] Immunizations Immunization Date Immunization Notes Care Provider Nathaniel win 07-16-2019 tetanus toxoid, reduced diphtheria toxoid, and acellular pertussis vaccine, adsorbed Andrey Pendlebury WEB SITE SPECIALIST.[facility] Work Phone: [facility] 11-23-1990 diphtheria, tetanus toxoids and pertussis vaccine Andrey Pendlebury WEB SITE SPECIALIST.[facility] Work Phone: [facility] Work Phone: 11-23-1990 haemophilus influenz ae type b vaccine, conjugate unspecified formulation Andrey Pendlebury WEB SITE SPECIALIST.[facility] Work Phone: [facility] Work Phone: 11-23-1990 measles, mumps and rubella virus vaccine Andrey Pendlebury WEB SITE SPECIALIST.[facility] Work Phone: [facility] Work Phone: 11-23-1990 trivalent poliovirus vaccine, live, oral Andrey Pendlebury WEB SITE SPECIALIST.FO[employer] MOBILE DRIVER Work Phone: [facility] Work Phone: 04-22-1990 diphtheria, tetanus toxoids and pertussis vaccine Andrey Pendlebury WEB SITE SPECIALIST.[facility] Work Phone: [facility] Work Phone: 1989 trivalent poliovirus vaccine, live, oral Andrey Pendlebury WEB SITE SPECIALIST.[facility] Work Phone: [facility] Work Phone: 1989 diphtheria, tetanus toxoids and pertussis vaccine Andrey Pendlebury WEB SITE SPECIALIST.[employer] MOBILE DRIVER Work Phone: [facility] Work Phone: 1989 trivalent poliovirus vaccine, live, oral Andrey Pendlebury WEB SITE SPECIALIST.FO[employer] MOBILE DRIVER Work Phone: [facility] Work Phone: 1989 diphtheria, tetanus toxoids and pertussis vaccine Andrey Pendlebury WEB SITE SPECIALIST.FOOD MOBILE DRIVER Work Phone: [facility] Work Phone: Payers Date Payer Category Payer Medicare [id number] 2019 Medicaid MEDICAID [facility] MEDICAID [id number] 2019-Present [phone] [address] [place] [address] Medicaid [id number] 2019 Medicaid [id number] 2015 Unknown [employer] xxxxxxxxxxx 2015-Present [phone] [address] [place] [address] xxxxxxxxxxx [id number] Social History Date Type Detail Facility Start: 05-19-2019 End: 07-27-2022 Tobacco smoking status NHIS Never smoker [facility] Work Phone: Start: 05-19-2019 Alcohol intake Current drinke r of alcohol (finding) [place] Start: 05-03-2019 History SDOH Alcohol Frequency 1 [place] Start: 05-19-2019 Alcohol Comment once monthly [facility] Anurag [place], [place] Start: 1990 Sex Assigned At Not on file [place] Start: 05-03-2019 End: 05-04-2019 Alcohol intake Lifetime non-drinker (finding) [place] Start: 07-27-2022 Tobacco use and exposure Smokeless tobacco non-user [facility] Work Phone: Start: 07-27-2022 End: 08-02-2022 Alcohol intake Current non-drinker of alcohol (finding) [facility] Progress note 08-02-2022 Note Date & Type Note Facility 08-02-2022 Note HNO ID: [id number] Author: Claire Crain APRN.CNP Service: ? Author Type: Nurse Practitioner Type: Progress Notes Filed: 08/02/2022 11:55 AM Note Text: CC: Patient presents with: express care follow up - dental infection 07/27 HPI Germaine Jiménez is a 32 year old female who presents today for above. Patient reports one year ago a tooth right lower jaw broke off and has since fallen out. She was supposed to see an oral surgeon at that time but had transportation issues and never made it to the appointment. For the past few months she has developed mild swelling and discomfort right lower jaw line. Then about 6 weeks ago she noted dimpling of the skin on the right side of her chin. Area is tender and feels like there is a hard lump underneath. She tried to schedule appointment with dentist at [facility] however was not able to get in until November so they advised her to be evaluated in urgent care. She was seen in urgent care on 07/27, started on keflex for dental infection. Today she reports no change after completing course of antibiotics. There are no new or worsening symptoms. Still has mild facial swelling, discomfort and dimpling. She denies drainage, fever, chills, body aches, malaise, fatigue, severe pain, headaches, throat swelling, trouble swallowing, difficulty breathing. She is hoping to get x-rays and set up with an oral surgeon today. REVIEW OF SYSTEMS See HPI PAST MEDICAL HISTORY Diagnosis Date Allergic rhinitis, cause unspecified Anxiety state, unspecified 11/2007 ASCUS with positive high risk HPV cervical 09/26/2017 Gastroesophageal reflux disease without esophagitis 09/02/2017 History of renal stone 05/12/2011 Irritable bowel syndrome 11/2007 Malnutrition of moderate degree (HCC) 11/2007 PMH - PAST MEDICAL HISTORY OF hosp. for mono PMH - PAST MEDICAL HISTORY OF 11/2007 tachycardia - hospitalized at [facility] for total of 8 days this month - more than one admission - Dr Power Upper [facility]immer PMH - PAST MEDICAL HISTORY OF 2005 hospitalized at [facility] for throat infection that required Iv antibiotics PMH - PAST MEDICAL HISTORY OF age 13 diagnosed with hypoglycemia per family PMH - PAST MEDICAL HISTORY OF age 14 diagnosed with bipolar disorder - had been seen at the counseling center but currently trying to get appt through [facility] PAST SURGICAL HISTORY Procedure Laterality Date ASPIRATION OF PERITONSILLAR ABSCESS SKIN BX, 1 LESION moles x 2, one atypical TYMPANOSTOMY LOCAL/TOPICAL ANESTHESIA ALLERGIES Penicillins, Augmentin [Amoxicillin-Pot Clavulanate], Novak, Clavulanic Acid, Contrast Dye, Environmental Allergies [Other], Lactose, and Oranges [Other] MEDICATIONS montelukast (SINGULAIR) 10 mg tablet Take 1 tablet by mouth daily at bedtime. (Patient not taking: Reported on 07/27/2022) famotidine (PEPCID) 20 mg tablet Take 20 mg by mouth. (Patient not taking: Reported on 07/27/2022) Omeprazole Magnesium (PRILOSEC OTC) 20 mg tablet Take 1 tablet by mouth daily before breakfast. 1/2 hr before meal. For stomach (Patient not taking: Reported on 07/27/2022) cholecalciferol (VITAMIN D3) 2,000 unit tablet Take 1 tablet by mouth once daily. (Patient not taking: Reported on 07/16/2019 ) medroxyPROGESTERone (PROVERA, CYCRIN) 10 mg tablet TAKE 1 TABLET BY MOUTH DAILY FOR 10 DAYS A MONTH NEEDED TO START MENSES (Patient not taking: Reported on 07/16/2019 ) Blood Pressure Monitor kit Check blood pressure weekly and as needed. (I10) Essential hypertension ARIPiprazole (ABILICALE MAINTENA) 400 mg sers Inject 400 mg intramuscularly q 4 WEEKS. (Patient not taking: Reported on 07/16/2019 ) FAMILY HISTORY Problem Relation Age of Onset other (HTN) Mother Diabetes Maternal Grandmother other (heart problems) Maternal Grandmother Heart Maternal Grandfather Hypertension Maternal Grandfather Thyroid Maternal Grandfather paternal side other (cirrhosis) Maternal Grandfather paternal side other (digestive problems) Maternal Grandfather paternal side other (lupus) Maternal Grandfather maternal side Social History Tobacco Use Smoking status: Never Smokeless tobacco: Never Vaping Use Vaping Use: Never used Substance Use Topics Alcohol use: No Drug use: No PHYSICAL EXAM BP 127/86 Pulse 92 Temp 36.8 ?C (98.2 ?F) (Temporal) Resp 14 Wt 45.4 kg (100 lb) LMP 04/28/2019 BMI 18.29 kg/m? General Appearance: well appearing, in no acute distress, alert Oropharynx: multiple dental caries noted. Gums along right lower mandible normal. Buccal mucosa normal. ASSESSMENT/PLAN: 1. Skin abnormality - ICD9: 757.9, ICD10: L98.9 (primary diagnosis) Dimpling may indicate infection of the jaw, discussed with patient. Advised she needs panoramic x-ray to further evaluate which we do not have available here. She will need to see an oral surgeon [id number]. Given referral, instructed to call insurance to find a covered provider. To ER for any acut (more content not included)... [facility] History of Present illness Narrative 08-02-2022 Claire Crain, WEB SITE SPECIALISTEVAN - 08/02/2022 11:15 AM EST Note Date & Type Note Facility 08-02-2022 History of Presen t illness Narrative Images from the original note were not included. CC: Patient presents with: [facility] care follow up - dental infection 07/27 HPI Germaine Jiménez is a 32 year old female who presents today for above. Patient reports one year ago a tooth right lower jaw broke off and has since fallen out. She was supposed to see an oral surgeon at that time but had transportation issues and never made it to the appointment. For the past few months she has developed mild swelling and discomfort right lower jaw line. Then about 6 weeks ago she noted dimpling of the skin on the right side of her chin. Area is tender and feels like there is a hard lump underneath. She tried to schedule appointment with dentist at [facility] however was not able to get in until November so they advised her to be evaluated in urgent care. She was seen in urgent care on 07/27, started on keflex for dental infection. Today she reports no change after completing course of antibiotics. There are no new or worsening symptoms. Still has mild facial swelling, discomfort and dimpling. She denies drainage, fever, chills, body aches, malaise, fatigue, severe pain, headaches, throat swelling, trouble swallowing, difficulty breathing. She is hoping to get x-rays and set up with an oral surgeon today. REVIEW OF SYSTEMS See HPI PAST MEDICAL HISTORY Diagnosis Date Allergic rhinitis, cause unspecified Anxiety state, unspecified 11/2007 ASCUS with positive high risk HPV cervical 09/26/2017 Gastroesophageal reflux disease without esophagitis 09/02/2017 History of renal stone 05/12/2011 Irritable bowel syndrome 11/2007 Malnutrition of moderate degree (HCC) 11/2007 PMH - PAST MEDICAL HISTORY OF hosp. for mono PMH - PAST MEDICAL HISTORY OF 11/2007 tachycardia - hospitalized at [facility] for total of 8 days this month - more than one admission - Dr Power [facility] - PAST MEDICAL HISTORY OF 2006 hospitalized at [facility] for throat infection that required Iv antibiotics PM - PAST MEDICAL HISTORY OF age 13 diagnosed with hypoglycemia per family PM - PAST MEDICAL HISTORY OF age 14 diagnosed with bipolar disorder - had been seen at the counseling center but currently [facility] get [facility] PAST SURGICAL HISTORY Procedure Laterality Date ASPIRATION OF PERITONSILLAR ABSCESS SKIN BX, 1 LESION moles x 2, one atypical TYMPANOSTOMY LOCAL/TOPICAL ANESTHESIA ALLERGIES Penicillins, Augmentin [Amoxicillin-Pot Clavulanate], Novak, Clavulanic Acid, Contrast Dye, Environmental Allergies [Other], Lactose, and Oranges [Other] MEDICATIONS montelukast (SINGULAIR) 10 mg tablet Take 1 tablet by mouth daily at bedtime. (Patient not taking: Reported on 07/27/2022) famotidine (PEPCID) 20 mg tablet Take 20 mg by mouth. (Patient not taking: Reported on 07/27/2022) Omeprazole Magnesium (PRILOSEC OTC) 20 mg tablet Take 1 tablet by mouth daily before breakfast. 1/2 hr before meal. For stomach (Patient not taking: Reported on 07/27/2022) cholecalciferol (VITAMIN D3) 2,000 unit tablet Take 1 tablet by mouth once daily. (Patient not taking: Reported on 07/16/2019 ) medroxyPROGESTERone (PROVERA, CYCRIN) 10 mg tablet TAKE 1 TABLET BY MOUTH DAILY FOR 10 DAYS A MONTH NEEDED TO START MENSES (Patient not taking: Reported on 07/16/2019 ) Blood Pressure Monitor kit Check blood pressure weekly and as needed. (I10) Essential hypertension ARIPiprazole (ABILIFIvory MAINTENA) 400 mg sers Inject 400 mg intramuscularly q 4 WEEKS. (Patient not taking: Reported on 07/16/2019 ) FAMILY HISTORY Problem Relation Age of Onset other (HTN) Mother Diabetes Maternal Grandmother other (heart problems) Maternal Grandmother Heart Maternal Grandfather Hypertension Maternal Grandfather Thyroid Maternal Grandfather paternal side other (cirrhosis) Maternal Grandfather paternal side other (digestive problems) Maternal Grandfather paternal side other (lupus) Maternal Grandfather maternal side Social History Tobacco Use Smoking status: Never Smokeless tobacco: Never Vaping Use Vaping Use: Never used Substance Use Topics Alcohol use: No Drug use: No PHYSICAL EXAM BP 127/86 Pulse 92 Temp 36.8 C (98.2 F) (Temporal) Resp 14 Wt 45.4 kg (100 lb) LMP 04/28/2019 BMI 18.29 kg/m General Appearance: well appearing, in no acute distress, alert Oropharynx: multiple dental caries noted. Gums along right lower mandible normal. Buccal mucosa normal. ASSESSMENT/PLAN: 1. Skin abnormality - ICD9: 757.9, ICD10: L98.9 (primary diagnosis) Dimpling may indicate infection of the jaw, discussed with patient. Advised she needs panoramic x-ray to further evaluate which we do not have available here. She will need to see an oral surgeon JUJU. Given referral, instructed to call insurance to find a covered provider. To ER for any acutely worsening symptoms. 2. Facial swelling - ICD9: 784.2, ICD10: R22.0 As above - CONSULT TO NON-[facility] FACILITY 3. Dental infection - ICD9: 522.4, ICD10: K04.7 As above - CONSULT TO NON-[facility] FACILITY Prescription instructions reviewed with patient as applicable. Potential red flag symptoms discussed with the patient. Reviewed appropriate action plan to take if red flag symptoms occur. Patient agreeable to treatment plan. Claire Crain APRN.CNP documented in this encounter [facility] Progress note 07-27-2022 Note Date & Type Note Facility 07-27-2022 Note HNO ID: [id number] Author: Andrey Banda APRN.CNP Service: ? Author Type: Nurse Practitioner Type: Progress Notes Filed: 07/27/2022 2:13 PM Note Text: Subjective HPI Nontoxic-appearing female presents urgent care chief complaint possible dental infection. Duration of symptoms 1 year. Associated symptoms right-sided dental pain. Has noticed some swelling recently. Over the last month to month and a half she has noticed that her skin has been pulled inwards on her chin. States this area is slightly painful. Feels like there is a hard lump underneath . Has not used any OTC medications today. Has been seeing functional medicine. Denies any fever body aches chills nausea vomiting abdominal pain cough chest pain shortness of breath pain of floor mouth decreased range of motion of jaw decreased range of motion of neck. Past medical history prescription medication use allergies reviewed. .Patient presents with: Dental Problem: right side bottom tooth pain x 1 year, appt 11/26 PAST MEDICAL HISTORY Diagnosis Date Allergic rhinitis, cause unspecified Anxiety state, unspecified 11/2007 ASCUS with positive high risk HPV cervical 09/26/2017 Gastroesophageal reflux disease without esophagitis 09/02/2017 History of renal stone 05/12/2011 Irritable bowel syndrome 11/2007 Malnutrition of moderate degree (HCC) 11/2007 PMH - PAST MEDICAL HISTORY OF hosp. for mono PMH - PAST MEDICAL HISTORY OF 11/2007 tachycardia - hospitalized at [facility] for total of 8 days this month - more than one admission - Dr Power [place] PMH - PAST MEDICAL HISTORY OF 2005 hospitalized at [facility] for throat infection that required Iv antibiotics PMH - PAST MEDICAL HISTORY OF age 13 diagnosed with hypoglycemia per family PMH - PAST MEDICAL HISTORY OF age 14 diagnosed with bipolar disorder - had been seen at the [facility] but currently trying to get appt through [facility] PAST SURGICAL HISTORY Procedure Laterality Date ASPIRATION OF PERITONSILLAR ABSCESS SKIN BX, 1 LESION moles x 2, one atypical TYMPANOSTOMY LOCAL/TOPICAL ANESTHESIA ALLERGIES Penicillins, Augmentin [Amoxicillin-Pot Clavulanate], Novak, Clavulanic Acid, Contrast Dye, Environmental Allergies [Other], Lactose, and Oranges [Other] MEDICATIONS montelukast (SINGULAIR) 10 mg tablet Take 1 tablet by mouth daily at bedtime. (Patient not taking: Reported on 07/27/2022) famotidine (PEPCID) 20 mg tablet Take 20 mg by mouth. (Patient not taking: Reported on 07/27/2022) Omeprazole Magnesium (PRILOSEC OTC) 20 mg tablet Take 1 tablet by mouth daily before breakfast. 1/2 hr before meal. For stomach (Patient not taking: Reported on 07/27/2022) cholecalciferol (VITAMIN D3) 2,000 unit tablet Take 1 tablet by mouth once daily. (Patient not taking: Reported on 07/16/2019 ) medroxyPROGESTERone (PROVERA, CYCRIN) 10 mg tablet TAKE 1 TABLET BY MOUTH DAILY FOR 10 DAYS A MONTH NEEDED TO START MENSES (Patient not taking: Reported on 07/16/2019 ) Blood Pressure Monitor kit Check blood pressure weekly and as needed. (I10) Essential hypertension ARIPiprazole (ABILIFY MAINTENA) 400 mg sers Inject 400 mg intramuscularly q 4 WEEKS. (Patient not taking: Reported on 07/16/2019 ) FAMILY HISTORY Problem Relation Age of Onset other (HTN) Mother Diabetes Maternal Grandmother other (heart problems) Maternal Grandmother Heart Maternal Grandfather Hypertension Maternal Grandfather Thyroid Maternal Grandfather paternal side other (cirrhosis) Maternal Grandfather paternal side other (digestive problems) Maternal Grandfather paternal side other (lupus) Maternal Grandfather maternal side Social History Tobacco Use Smoking status: Never Smokeless tobacco: Never Vaping Use Vaping Use: Never used Substance Use Topics Alcohol use: No Drug use: No BP 102/60 Pulse 92 Temp 36.4 ?C (97.6 ?F) Resp 16 Wt 46.3 kg (102 lb) LMP 04/28/2019 SpO2 98% BMI 18.66 kg/m? Review of Systems Constitutional: Negative for chills, fever and malaise/fatigue. HENT: Negative for congestion, ear discharge, ear pain, sinus pain and sore throat. Eyes: Negative for blurred vision, pain, discharge and redness. Respiratory: Negative for cough, hemoptysis, sputum production, shortness of breath, wheezing and stridor. Cardiovascular: Negative for chest pain. Gastrointestinal: Negative for abdominal pain, diarrhea, nausea and vomiting. Musculoskeletal: Negative for myalgias. Skin: Negative for itching and rash. Neurological: Negative for dizziness and headaches. Objective Physical Exam Constitutional: General: She is not in acute distress. Appearance: She is not diaphoretic. HENT: Head: Normocephalic. Comments: Area of concaved skin noted. Palpable lump under area noted. Mouth/Throat: Mouth: Mucous membranes are moist. Dentition: Abnormal dentition. Dental tenderness and dental caries present. No dental abscesses. Pharynx (more content not included)... [facility] History of Present illness Narrative 07-27-2022 Andrey Banda APRN.[facility] - 07/27/2022 1:47 PM EST Note Date & Type Note Facility 07-27-2022 History of Presen t illness Narrative Images from the original note were not included. Subjective HPI Nontoxic-appearing female presents urgent care chief complaint possible dental infection. Duration of symptoms 1 year. Associated symptoms right-sided dental pain. Has noticed some swelling recently. Over the last month to month and a half she has noticed that her skin has been pulled inwards on her chin. States this area is slightly painful. Feels like there is a hard lump underneath . Has not used any OTC medications today. Has been seeing functional medicine. Denies any fever body aches chills nausea vomiting abdominal pain cough chest pain shortness of breath pain of floor mouth decreased range of motion of jaw decreased range of motion of neck. Past medical history prescription medication use allergies reviewed. .Patient presents with: Dental Problem: right side bottom tooth pain x 1 year, appt 11/26 PAST MEDICAL HISTORY Diagnosis Date Allergic rhinitis, cause unspecified Anxiety state, unspecified 11/2007 ASCUS with positive high risk HPV cervical 09/26/2017 Gastroesophageal reflux disease without esophagitis 09/02/2017 History of renal stone 05/12/2011 Irritable bowel syndrome 11/2007 Malnutrition of moderate degree (HCC) 11/2007 PMH - PAST MEDICAL HISTORY OF hosp. for mono PMH - PAST MEDICAL HISTORY OF 11/2007 tachycardia - hospitalized at [facility] for total of 8 days this month - more than one admission - Dr Power [place] PMH - PAST MEDICAL HISTORY OF 2005 hospitalized at [facility] for throat infection that required Iv antibiotics PMH - PAST MEDICAL HISTORY OF age 13 diagnosed with hypoglycemia per family PMH - PAST MEDICAL HISTORY OF age 14 diagnosed with bipolar disorder - had been seen at the [facility] but currently trying to get appt through [facility] PAST SURGICAL HISTORY Procedure Laterality Date ASPIRATION OF PERITONSILLAR ABSCESS SKIN BX, 1 LESION moles x 2, one atypical TYMPANOSTOMY LOCAL/TOPICAL ANESTHESIA ALLERGIES Penicillins, Augmentin [Amoxicillin-Pot Clavulanate], Novak, Clavulanic Acid, Contrast Dye, Environmental Allergies [Other], Lactose, and Oranges [Other] MEDICATIONS montelukast (SINGULAIR) 10 mg tablet Take 1 tablet by mouth daily at bedtime. (Patient not taking: Reported on 07/27/2022) famotidine (PEPCID) 20 mg tablet Take 20 mg by mouth. (Patient not taking: Reported on 07/27/2022) Omeprazole Magnesium (PRILOSEC OTC) 20 mg tablet Take 1 tablet by mouth daily before breakfast. 1/2 hr before meal. For stomach (Patient not taking: Reported on 07/27/2022) cholecalciferol (VITAMIN D3) 2,000 unit tablet Take 1 tablet by mouth once daily. (Patient not taking: Reported on 07/16/2019 ) medroxyPROGESTERone (PROVERA, CYCRIN) 10 mg tablet TAKE 1 TABLET BY MOUTH DAILY FOR 10 DAYS A MONTH NEEDED TO START MENSES (Patient not taking: Reported on 07/16/2019 ) Blood Pressure Monitor kit Check blood pressure weekly and as needed. (I10) Essential hypertension ARIPiprazole (ABILIFIvory MAINTENA) 400 mg sers Inject 400 mg intramuscularly q 4 WEEKS. (Patient not taking: Reported on 07/16/2019 ) FAMILY HISTORY Problem Relation Age of Onset other (HTN) Mother Diabetes Maternal Grandmother other (heart problems) Maternal Grandmother Heart Maternal Grandfather Hypertension Maternal Grandfather Thyroid Maternal Grandfather paternal side other (cirrhosis) Maternal Grandfather paternal side other (digestive problems) Maternal Grandfather paternal side other (lupus) Maternal Grandfather maternal side Social History Tobacco Use Smoking status: Never Smokeless tobacco: Never Vaping Use Vaping Use: Never used Substance Use Topics Alcohol use: No Drug use: No BP 102/60 Pulse 92 Temp 36.4 C (97.6 F) Resp 16 Wt 46.3 kg (102 lb) LMP 04/28/2019 SpO2 98% BMI 18.66 kg/m Review of Systems Constitutional: Negative for chills, fever and malaise/fatigue. HENT: Negative for congestion, ear discharge, ear pain, sinus pain and sore throat. Eyes: Negative for blurred vision, pain, discharge and redness. Respiratory: Negative for cough, hemoptysis, sputum production, shortness of breath, wheezing and stridor. Cardiovascular: Negative for chest pain. Gastrointestinal: Negative for abdominal pain, diarrhea, nausea and vomiting. Musculoskeletal: Negative for myalgias. Skin: Negative for itching and rash. Neurological: Negative for dizziness and headaches. Objective Physical Exam Constitutional: General: She is not in acute distress. Appearance: She is not diaphoretic. HENT: Head: Normocephalic. Comments: Area of concaved skin noted. Palpable lump under area noted. Mouth/Throat: Mouth: Mucous membranes are moist. Dentition: Abnormal dentition. Dental tenderness and dental caries present. No dental abscesses. Pharynx: Oropharynx is clear. No pharyngeal swelling, oropharyngeal exudate, posterior oropharyngeal erythema or uvula swelling. Eyes: Conjunctiva/sclera: Conjunctivae normal. Pupils: Pupils are equal, round, and reactive to light. Cardiovascular: Rate and Rhythm: Normal rate and regular rhythm. Heart sounds: Normal heart sounds. Pulmonary: Effort: Pulmonary effort is normal. No tachypnea, accessory muscle usage or respiratory distress. Breath sounds: Normal breath sounds. No stridor. No wheezing, rhonchi or rales. Abdominal: General: There is no distension. Palpations: Abdomen is soft. Tenderness: There is no abdominal tenderness. There is no guarding or rebound. Musculoskeletal: Cervical back: Normal range of motion and neck supple. No rigidity or tenderness. Lymphadenopathy: Cervical: No cervical adenopathy. Skin: General: Skin is warm and dry. Neurological: Mental Status: She is alert and oriented to person, place, and time. ASSESSMENT/PLAN: 1. Dental infection - ICD9: 522.4, ICD10: K04.7 Patient diagnosed with dental infection. No evidence of deep neck infection noted. No significant facial swelling or erythema noted. Placed on Keflex today. Tolerated Omnicef multiple times in the past. Follow-up with PCP 2 to 3 days reevaluation. Keep appointment with dentist as scheduled. Patient was educated on supportive therapies. Patient was instructed to immediately proceed to emergency room for any new, worsening, or symptoms lasting longer than anticipated. The patient's clinical presentation is otherwise unremarkable at this time. Based on exam and clinical finding, the patient is stable for discharge. Plan of care was discussed with patient. Patient verbalizes understanding and agrees to plan of care. This note was generated using [employer] software. It may contain errors in wording, punctuation, or spelling. Andrey Banda APRN.CAROL documented in this encounter [facility] History of Past illness Narrative 11-12-2007 Note Date & Type Note Facility documented as of this encounter (statuses as of 07/27/2022) [facility] History of Past illness Narrative 11-12-2007 Note Date & Type Note Facility documented as of this encounter (statuses as of 08/02/2022) [facility] Evaluation note Note Date & Type Note Facility documented in this encounter [facility] Work Phone: Evaluation note Note Date & Type Note Facility documented in this encounter [facility] Evaluation note Note Date & Type Note Facility documented in this encounter [facility] Hospital Discharge instructions Attachments Note Date & Type Note Facility Hospital Discharge instructions The following attachments cannot be sent through Care Everywhere.Chest Pain (Cymraes)documented in this encounter [facility] Work Phone: Discharge Instructions * Attachments The following attachments cannot be sent through Care Everywhere. * Hiatal Hernia ([place]ymraes) documented in this encounter* Attachments The following attachments cannot be sent through Care Everywhere. * Bronchitis ([place]ymraes) documented in this encounter* Attachments The following attachments cannot be sent through Care Everywhere. * Fever: General Info (Cymraes) documented in this encounter Assessments Diagnosis Chest pain, unspecified type- Primary Hiatal hernia Diaphragmatic hernia without mention of obstruction or gangrene Pleural nodule Swelling, mass, or lump in chest Diagnosis Acute bronchitis with bronchospasm- Primary Acute bronchitis Diagnosis Cough- Primary Fever, unspecified fever cause Summary Purpose Family History No Family History Records FoundNo Family History Records FoundNo Family History Records Found Advance Directives No Advanced Directives Records FoundNo Advanced Directives Records FoundNo Advanced Directives Records Found Additional Source Comments Reason for Visit (unrecogniz ed section and content) Reason Comments Fever Reason Comments Chest Pain worsening chest pain x 1 month has had slight cough clear sputum seen in ED and Dr office / x rays EKG and chest CT Reason Comments Dental Problem right side bottom to oth pain x 1 year, appt 11/26 Reason Comments express care follow up - dental infectio n 07/27 INFORMATION SOURCE (unrecogn ized section and content) DATE CREATED AUTHOR AUTHOR'S ORGANIZ ATION 06/18/2019 [facility] DATE CREATED AUTHOR AUTHOR'S ORGANIZ ATION 05/28/2023 [facility] Source Comments (unrecognize d section and content) In the event this informatio n is protected by the Federal Confidentiality of Alcohol and Drug Abuse Patient Records regulations: The Federal rules restrict any use of the information to criminally investigate or prosecute any alcohol or drug abuse patient.[facility] the event this information is protected by the Federal Confidentiality of Alcohol and Drug Abuse Patient Records regulations: The Federal rules restrict any use of the information to criminally investigate or prosecute any alcohol or drug abuse patient.[facility] Care Teams (unrecognized sec tion and content) FOR RECORDS PERTAINING TO PATIENTS WHO ARE OR HAVE BEEN ENROLLED IN A CHEMICAL DEPENDENCY/SUBSTANCEABUSE PROGRAM, SOME INFORMATION MAY BE OMITTED. This clinical summary was aggregated from multiple sources. Caution should be exercised in using it in the provision of clinical care. This summary normalizes information from multiple sources, and as a consequence, information in this document may materially change the coding, format and clinical context of patient data. In addition, data may be omitted in some cases. CLINICAL DECISIONS SHOULD BE BASED ON THE PRIMARY CLINICAL RECORDS. [facility] [employer] [facility]. provides no warranty or guarantee of the accuracy or completeness of information in this document.
[2023-06-23 20:30] LABS: Anion Gap 7 (5-15); BUN 10 mg/dL (7-18); BUN/Creat Ratio 14.8 RATIO (10-20); Calcium,Total 10.1 mg/dL (8.5-10.1); Chloride 107 mmol/L (98-107); Creatinine, Serum 0.68 mg/dL (0.55-1.02); EST Glomerular Filtration Rate 106 mL/min (>60); Est Glom Filt Rate - Afr Amer 128 mL/min (>60); Estimated Creatinine Clearance 87.97 ml/min; Glucose 103 mg/dL (74-106); Potassium 3.8 mmol/L (3.5-5.1); Sodium Level 140 mmol/L (136-145); Troponin-I HS (w/2H Reflex) 4 pg/mL (3.0-54.0)
[2023-06-23 21:00] VITALS: BP 155/105; PULSE 105; RESP 22; O2SAT 94
--- NOTE | 2023-06-23 21:32 | EX.ED.DYSGE1 ---
HPI History of Present Illness Chief Complaint: Palpitations Narrative Narrative: 33-year-old female presenting with anxiety. She has a history of schizophrenia. She states she felt very anxious today and having palpitations. She states she has a history of SVT but has had a cardiac workup and echocardiogram. Patient states that she has no cardiac history. She is not short of breath. No fevers or chills. She states she just feels a little bit off. She does not have chest pain. PFSH PFSH Medical History Schizophrenia SVT (supraventricular tachycardia) Home Medications hydroxyzine pamoate 25 mg capsule (Vistaril) 25 mg PO TID PRN anxiety #30 caps 06/23/23 [Rx Last Taken Unknown] Allergy/AdvReac Type Severity Reaction Status Date / Time amoxicillin trihydrate Allergy Unknown Verified 06/23/23 19:45 [From Augmentin] iodine Allergy Shortness Verified 06/23/23 19:45 of breath potassium clavulanate Allergy Unknown Verified 06/23/23 19:45 [From Augmentin] haloperidol [From Haldol] AdvReac Other Verified 06/23/23 19:45 haloperidol lactate AdvReac Other Verified 06/23/23 19:45 [From Haldol] Social History Smoking Status: Never smoker EXAM Physical Exam Const Vital Signs: 06/23/23 19:42 06/23/23 19:47 06/23/23 19:56 Temperature 97 F L Temperature Source Temporal Pulse Rate 122 H Respiratory Rate 18 Respiratory Effort Normal Non-Labored Blood Pressure 175/102 H Blood Pressure Mean 126 Pulse Ox 98 100 Oxygen Delivery Method Room Air Room Air 06/23/23 21:00 Temperature Temperature Source Pulse Rate 105 H Respiratory Rate 22 H Respiratory Effort Blood Pressure 155/105 H Blood Pressure Mean 121 Pulse Ox 94 Oxygen Delivery Method Room Air Positive well nourished General Appearance ED: Negative for pallor HEENT Reports normocephalic and moist mucous membranes Eyes PERRL and EOMs intact bilaterally Resp normal respiratory effort and clear to auscultation bilaterally Auscultation: Negative for rales, rhonchi or wheezes Cardio regular rhythm Rate: tachycardic GI normal to inspection, nondistended, normoactive bowel sounds and non-distended Narrative: Deferred Extremity normal to inspection Neuro oriented x3 and CN's II-XII intact bilaterally Sensorium / Orientation: alert Motor Exam: strength 5/5 throughout Psych mental status grossly normal Attitude: No agitated Mood & Affect: anxious Skin no rashes or lesions noted and no wounds General Skin Exam: Negative for jaundice or pallor MDM MDM MDM Narrative Medical decision making narrative: Patient presenting with anxiety and palpitations. Differential includes ACS, SVT, pneumonia, anxiety, dehydration, anemia, Odette abnormalities. CBC was obtained to assess for blood cell count, hemoglobin, platelets. BMP to assess renal function, electrolytes, glucose. High-sensitivity troponin and EKG to assess for ischemia/dysrhythmia. EKG on my interpretation is normal sinus rhythm with a ventricular rate of 97 bpm without time ischemic change or ectopy. Chest x-ray my interpretation shows no acute process. Radiology interprets this and agrees. CBC, BMP unremarkable. High-sensitivity troponin is 4. Given that the patient's had the symptoms since noon I do believe she needs a delta troponin. Did not have any chest pain I below suspicion for PE. I do suspect she has a lot of anxiety and she does have a history of schizophrenia but she does not appear manic. She not hallucinating. She is resting comfortably in no acute distress. We discussed starting some Vistaril to help her with anxiety symptoms. Patient will call her mother for a ride. Impression: 1. Palpitation 2. Tachycardia 3. Anxiety Lab Data Attestation: I reviewed the patient's lab results. Labs: Laboratory Results - last 24 hr 06/23/23 19:43 WBC 10.0 RBC 4.93 Hgb 15.8 H Hct 43.8 MCV 88.8 MCH 32.0 MCHC 36.1 H RDW Std Deviation 38.3 RDW Coeff of Mitchel 11.9 Plt Count 362 MPV 9.3 Immature Gran % (Auto) 0.300 Neut % (Auto) 58.8 Lymph % (Auto) 29.2 [place] % (Auto) 8.7 Eos % (Auto) 2.5 Baso % (Auto) 0.5 Absolute Neuts (auto) 5.9 Absolute Lymphs (auto) 2.91 Nucleated RBC % 0 Sodium 140 Potassium 3.8 Chloride 107 Carbon Dioxide 26.0 Anion Gap 7 BUN 10 Creatinine 0.68 Estim Creat Clear Calc 87.97 Est GFR (MDRD) Af Amer 128 Est GFR (MDRD) Non-Af 106 BUN/Creatinine Ratio 14.8 Glucose 103 Calcium 10.1 Troponin I High Sens 4 Radiography Diagnostic Testing: Clinical Impression(s) from Imaging Studies Chest X-Ray 06/23/23 19:56 IMPRESSION: Normal x-ray examination of the chest. Electronically Signed: Rajat Hartmann MD at 20:27 EST , Discharge Plan Triage Chief Complaint: Palpitations ED Provider: Ry Portillo Dx/Rx/DC Orders Instructions: ED Anxiety Reaction, ED Palpitations Prescriptions: New hydroxyzine pamoate [Vistaril] 25 mg capsule 25 mg PO TID PRN (Reason: anxiety) Qty: 30 0RF Primary Care Provider: Andrey Gill Referrals: Andrey Gill MD [Primary Care Provider] - Disposition Disposition: Home, Self Care
[2023-06-23 21:33] VITALS: BP 116/112; PULSE 96; RESP 16; O2SAT 99
[2023-06-23] MEDS: hydrOXYzine PAM 25 MG Capsule PO (21:43)
[2023-06-23 22:09] LABS: Reflex Troponin-HS? (from REC) Y
== END 2023-06-23 21:45 | disposition home or self-care (01) ==
PROVIDERS: Emergency Provider Student in an Organized Health Care Education/Training Program; PCP Family Medicine; Visit Provider Student in an Organized Health Care Education/Training Program
DX: F41.9 Anxiety disorder, unspecified (principal); R00.2 Palpitations; R00.0 Tachycardia, unspecified
CPT/HCPCS: 71045; 80048; 84484; 85025; 93005; 99285

== ENCOUNTER 2024-01-24 17:53 | Emergency (ER) | payer MEDICARE, MEDICAID, SELFPAY ==
[2024-01-24 17:54] VITALS: BP 180/103; PULSE 111; RESP 22; TEMP 36.2; O2SAT 99
--- NOTE | 2024-01-24 18:35 | RAD_ITS ---
STUDY: X-RAY - RIGHT HAND REASON FOR EXAM: Female, 33 years old. Trauma TECHNIQUE: 3 view(s) of the hand. COMPARISON: None. FINDINGS: Normal radiocarpal articulation. Normal distal radioulnar joint. Normal visualized carpal bones. Normal carpal articulations Normal carpometacarpal articulation of the thumb. Normal second through fifth carpometacarpal joints. Normal metacarpi. Normal metacarpophalangeal joint of the thumb. Normal interphalangeal joint of the thumb. Normal proximal and distal phalanges of the thumb. Normal metacarpophalangeal joints of the second through fifth fingers. Normal proximal and distal interphalangeal joints of the second through fifth fingers. Normal phalanges of the second through fifth fingers. The soft tissue structures are unremarkable. RAD/Hand Min 3 Views IMPRESSION: Normal x-ray examination of the hand. Electronically Signed: Berlin Francis MD at 19:00 EDT ,
--- NOTE | 2024-01-24 19:15 | ED.RN ---
Pt walks out of department at 1915. This nurse asks her if she is leaving and she ignores this nurse.
== END 2024-01-24 19:15 | disposition left against medical advice (07) ==
LOC: ED 19:17
PROVIDERS: PCP Family Medicine
DX: Z53.21 Procedure and treatment not carried out due to patient leaving prior to being seen by health care provider (principal)
CPT/HCPCS: 73130

== ENCOUNTER 2025-01-01 23:00 | Emergency (ER) | payer MEDICARE, MEDICAID, SELFPAY ==
[2025-01-01 23:01] VITALS: BP 129/103; PULSE 117; RESP 18; TEMP 36.6; O2SAT 99; BMI 26.0
--- NOTE | 2025-01-02 00:31 | EDS_ITS ---
HPI History of Present Illness Chief Complaint: Abn Labs Informant: patient and friend Narrative Narrative: Patient is a 34-year-old female with past medical history of schizophrenia. She states she was recently hospitalized secondary to this. She states she was discharged recently and placed on multiple new medications for home. She is unsure what those medications are. She states that she had outpatient labs drawn today and received a phone call this evening stating that her clonazepam level was "dangerously high". Patient states that she has been taking all of her medications as she has been directed orally she believes she is taking them in that fashion. She states there is no deliberate overdose. She states she is also unsure if she is truly on clonazepam. Patient reports that she feels at her baseline but with the crisis center calling and advising patient to come in for evaluation she does so at this time [facility] Medical History Schizophrenia SVT (supraventricular tachycardia) Home Medications Medication Instructions Recorded Last Taken Type hydroxyzine pamoate 25 mg capsule 25 mg PO TID PRN anx iety #30 caps 06/23/23 Unknown Rx (Vistaril) Allergy/AdvReac Type Severity Reaction Status Date / Time amoxicillin trihydrate (From Allergy Unknown Verified 01/24/24 17:54 Augmentin) iodine Allergy Shortness Verified 01/24/24 17:54 of breath potassium clavulanate (From Allergy Unknown Verified 01/24/24 17:54 Augmentin) haloperidol (From Haldol) AdvReac Other Verified 01/24/24 17:54 haloperidol lactate (From AdvReac Other Verified 01/24/24 17:54 Haldol) Social History Smoking Status: Never smoker ROS ROS ED Constitutional Constitutional ED: Denies chills or fever(s) Eyes Eyes: Denies change in vision ENT ENT ED: Denies sore throat Cardiovascular Cardiovascular: Denies chest pain, palpitations or racing heartbeat Respiratory/Chest Respiratory/Chest: Denies cough or dyspnea Gastrointestinal Gastrointestinal: Denies abdominal pain, diarrhea, nausea or vomiting Genitourinary Genitourinary ED: Denies dysuria Musculoskeletal Musculoskeletal: Denies myalgias Integumentary Denies rash Neurologic Neurologic: Denies headache(s) Psychiatric Psychiatric: Denies suicidal ideation or suicidal thoughts Hematologic/Lymphatic Hematologic/Lymphatic: Denies easy bleeding or easy bruising EXAM Physical Exam Const Vital Signs: 01/01/25 23:01 01/02/25 00:40 01/02/25 00:40 Temperature 97.8 F 98 F Temperature Source Temporal Pulse Rate 117 H 98 Respiratory Rate 18 18 Respiratory Effort Normal Non-Labored Respiratory Pattern Normal Blood Pressure 129/103 H 115/83 H Blood Pressure Mean 111 93 Pulse Ox 99 98 Oxygen Delivery Method Room Air Positive well nourished and well developed General Appearance ED: well developed; Negative for pallor HEENT HEENT Narrative: Normocephalic atraumatic No tongue or lip swelling no oral lesions no airway edema or compromise; no secondary findings to suggest infection Eyes PERRL and EOMs intact bilaterally General Eye ED: Negative for scleral icterus Neck supple Neck Narrative: No nuchal rigidity or meningeal signs Resp normal respiratory effort and clear to auscultation bilaterally Cardio regular rate and regular rhythm GI normal to inspection, nondistended, normoactive bowel sounds, non-tender, non- distended and no masses GI Narrative: No voluntary guarding or rigidity or pulsatile mass Auscultation: normoactive bowel sounds Palpation: soft Extremity normal to inspection Neuro oriented x3, CN's II-XII intact bilaterally and no sensory deficits noted Sensorium / Orientation: alert Motor Exam: strength 5/5 throughout Psych Psych Narrative: Patient has a flat affect Skin no rashes or lesions noted and no wounds General Skin Exam: Negative for jaundice or pallor MDM MDM MDM Narrative Medical decision making narrative: Patient arrived to the ER awake and alert with stable vitals. She states she feels at her baseline. She states she has started taking new medication because of her recent psychiatric hospitalization but she is exactly unsure what those medications are. However she states she has not tried to overdose or to harm herself in any way. Of review of the patient's [facility] report shows that there has been no clonazepam prescribed in the past. At this time I feel that the elevated value is lab error or medication interference as she is not hypotensive she is not lethargic she does not have dilated sluggish pupils she is not showing signs of respiratory distress. We discussed obtaining a repeat clonazepam level however this is a send out level and will not result for multiple hours or potentially days. Therefore it would not help with acutely in the ER. At this time since the patient's vitals are stable and her exam does not suggest that she is at a dangerous overdose of the medication the decision was made with the patient and her friend to be discharged home. They were instructed that if clonazepam is present in the medication that she is not to take it. However they need to undergo medication education with the high risk case manager or physician to ensure she is taking her medication in a proper manner. She is not homicidal she is not suicidal she states she has not tried to overdose in any way and therefore do not feel there is a need for an emergent psychiatric evaluation. At this time based on her history and exam the elevated value is most likely false secondary to lab error and there is no need for intervention at this time as she is awake alert and oriented and is otherwise safe for discharge. History & Record Review Discussion w/independent historian: Patient and Friend Discharge Plan Triage Chief Complaint: Abn Labs ED Provider: Braden Mao Dx/Rx/DC Orders Clinical Impression: Medication care plan discussed with patient, Schizophrenia Instructions: Panic Disorder Tx Meds Prescriptions: No Action hydroxyzine pamoate [Vistaril] 25 mg capsule 25 mg PO TID PRN (Reason: anxiety) Qty: 30 0RF Primary Care Provider: Andrey Gill Referrals: Andrey Gill MD [Primary Care Provider] - Activity Restrictions/Additional Instructions: Your physical exam coupled with your vitals does not indicate an elevated clonazepam level. A repeat level would not be helpful at this time as it is a send out test and would not result for multiple days. Therefore this is most likely a lab error or secondary to medication interaction. Please have your doctor or high risk case manager go over your medication list to ensure you are taking all your medications in proper fashion. If there is any further concern please return to the ER for repeat evaluation but at this time your vitals and exam do not indicate any concern for clonazepam overdose or elevated lab value and ther efore you are safe for discharge Print Language: [place]ij[place] Disposition Disposition: Home, Self Care Discharge Date/Time: 01/02/25 00:44
--- OUTSIDE RECORDS SUMMARY | 2025-01-02 00:38 | XMS RPT_ITS | CCD ---
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 D-DU ng/mL. Negative for D-dimer. DVT/PE is highly unlikely. Note: False negative results may be seen in patients on anticoagulant therapy. The result of the D-Dimer test should be evaluated in the context of all the clinical and laboratory data available. In those instances where the laboratory result does not agree with the clinical evaluation, additional tests should be performed accordingly. Performed By: #### T BETTE, ANEU, MDW, ADIFF, BMP, TSH, GFR, CBC #### [facility] [address] [place] [address] LABORATORYOrdered By: SYSTEM SYSTEM on 08-09-2024 Troponin I.cardiac DL <= 0.01 ng/mL [Mass/Vol] ng/L Normal 0 - 34 ng/L ADM Comment on above: Interpretive Data: High Sensitive Troponin I Reference Ranges: Female: 0-34 ng/L Male: 0-54 ng/L Testing performed on [employer] in the Air IM analyzer using direct chemiluminescent technology. Basophils (Bld) [#/Vol] 0.0 103/mcL Normal 0.0 - 0.3 10^3/mcL Workflow SS Basophils/100 WBC (Bld) 0.6 % Normal 0.0 - 2.5 % Workflow SS Calcium [Mass/Vol] 9.4 mg/dL Normal 8.7 - 10. 4 mg/dL ADM SS Chloride [Moles/Vol] 105 mmol/L Normal 98 - 11 0 mEq/L ADM SS CO2 [Moles/Vol] 28 mmol/L Normal 22 - 32 mEq/L ADM Creatinine [Mass/Vol] 0.62 mg/dL Normal 0.50 - 1.20 mg/dL [facility] Comment on above: Interpretive Data: T esting performed on Atell3scale CH analyzer using enzymatic creatinine methodology. D-Dimer HS ng/mL D-DU Normal 0 - 230 ng/mL D-DU [facility] Comment on above: Result Comment: DDN: Results reported in D-DU ng/mL. Negative for D-dimer. DVT/PE is highly unlikely. Note: False negative results may be seen in patients on anticoagulant therapy. Interpretive Data: T he result of the D-Dimer test should be evaluated in the context of all the clinical and laboratory data available. In those instances where the laboratory result does not agree with the clinical evaluation, additional tests should be performed accordingly. Electrolyte Balance 7.0 mEq/L Normal 4.0 - 15 .0 mEq/L ADM SS Eosinophils (Bld) [#/Vol] 0.2 103/mcL Normal 0.0 - 0.7 10^3/mcL Workflow SS Eosinophils/100 WBC (Bld) 3.6 % Normal 0.0 - 6.0 % Workflow SS Erythrocyte distribution width (RBC) [Ratio] 12.9 % Normal 11.5 - 15.5 % AH Workflow SS Estimated Glomerular Filtration Rate 119 ml/min/1.73sqm Invalid Interpretation Code ADM SS Comment on above: Interpretive Data: Stages of Chronic Kidney Disease (CKD) Stage Description eGFR(ml/min/1.73 sq.m.) CKD 1 Normal kidney function or >=90 normal kindney function with possible kidney damage (ex. Proteinuria) CKD 2 Kidney damage with mild loss 60-89 of kidney function CKD 3a Mild to moderate loss of kidney 45-59 function CKD 3b Moderate to severe loss of 30-44 of kindey function CKD 4 Severe loss of kidney function 15-29 CKD 5 Kidney failure <15 Note: (go live 2024) the eGFR calculation was updated to the 2020 CKD-EPI creatinine equation without a race factor to calculate the eGFR results. Glucose [Mass/Vol] 129 mg/dL High 70 - 110 mg/dL ADM SS Hematocrit (Bld) [Volume fraction] 38.5 % Normal 34.0 - 46.0 % AH Workflow SS Hemoglobin (Bld) [Mass/Vol] 13.8 G/dL Normal 12.0 - 16.0 G/dL AH Workflow SS Lymphocytes (Bld) [#/Vol] 1.4 103/mcL Normal 0.9 - 4.3 10^3/mcL AH Workflow SS Lymphocytes/100 WBC (Bld) 26.0 % Normal 20.0 - 40.0 % AH Workflow SS MCH (RBC) [Entitic mass] 31.9 pg Normal 27.0 - 33.0 pg AH Workflow SS MCHC 35.9 G/dL Normal 32.0 - 36.0 G/dL AH Workflow SS MCV (RBC) [Entitic vol] 88.8 fL Normal 80.0 - 99.0 fL AH Workflow SS Monocyte distribution width Auto (Bld) [Entitic vol] 17.09 1 Normal 0.00 - 20.00 AH Workflow SS Comment on above: Result Comment: For ED adult patients suspected of sepsis, MDW<=20.0 does not rule out sepsis or risk of sepsis Monocytes (Bld) [#/Vol] 0.6 103/mcL Normal 0.1 - 1.4 10^3/mcL AH Workflow SS Monocytes/100 WBC (Bld) 11.6 % Normal 2.0 - 13.0 % AH Workflow SS Neutrophils (Bld) [#/Vol] 3.2 103/mcL Normal 2.3 - 8.1 10^3/mcL Workflow SS Neutrophils/100 WBC (Bld) 58.2 % Normal 50.0 - 75.0 % Workflow SS Platelet mean volume (Bld) [Entitic vol] 6.8 fL Normal 6.6 - 10.5 fL Workflow SS Platelets (Bld) [#/Vol] 206 103/mcL Normal 150 - 450 10^3/mcL Workflow SS Potassium [Moles/Vol] 3.7 mmol/L Normal 3.5 - 5.0 mEq/L ADM SS RBC (Bld) [#/Vol] 4.34 106/mcL Normal 4.10 - 5.3 0 10^6/mcL Workflow SS Sodium [Moles/Vol] 140 mmol/L Normal 136 - 145 mEq/L ADM SS Troponin I.cardiac DL <= 0.01 ng/mL [Mass/Vol] ng/L Normal 0 - 34 ng/L ADM SS Comment on above: Interpretive Data: High Sensitive Troponin I Reference Ranges: Female: 0-34 ng/L Male: 0-54 ng/L Testing performed on [employer] analyzer using direct chemiluminescent technology. Urea nitrogen [Mass/Vol] 13.0 mg/dL Normal 8.0 - 22.0 mg/dL ADM SS Urea nitrogen/Creatinine [Mass ratio] 21.0 ratio Normal 10.0 - 22.0 ratio ADM SS WBC (Bld) [#/Vol] 5.4 103/mcL Normal 4.5 - 10.8 10^3/mcL Workflow SS LABORATORYOrdered By: Danielle Hahn on 08-09-2024 Beta HCG ( test) Ql Negative (08/09/24 1:43 PM) Normal Manual Chem SS test (s) int Not detected Invalid Interpretation Code Manual Chem SS PREGSon 08-09-2024 test (s) Negative Normal [facility] Comment on above: Performed By: #### P REGS #### [address] [address] test (s) int Not detected Invalid Interpretation Code [facility] Comment on above: Performed By: #### P REGS #### [address] [address] TROPHSon 08-09-2024 High Sensitivity Troponin I <3 Normal [address] [place] [address] MAIN Comment on above: Result Comment: High Sensitive Troponin I Reference Ranges: Female: 0-34 ng/L Male: 0-54 ng/L Testing performed on [employer]ell[employer] IM analyzer using direct chemiluminescent technology. Performed By: #### T CALLY AMOS, W, ADIFF, BMP, TSH, GFR, CBC #### [place] [address] High Sensitivity Troponin I <3 Normal 0-[address] [place] [address] MAIN Comment on above: Result Comment: High Sensitive Troponin I Reference Ranges: Female: 0-34 ng/L Male: 0-54 ng/L Testing performed on [employer] IM analyzer using direct chemiluminescent technology. Performed By: #### T CALLY AMOS, MDW, ADIFF, BMP, TSH, GFR, CBC #### [place] [address] XR CHEST 1 VIEWon 08-09-2024 XR CHEST 1 VIEW ORIGINAL EXAMINATION: ONE XRAY VIEW OF THE CHEST 08/09/2024 1:49 pm COMPARISON: 03/30/2024 HISTORY: ORDERING SYSTEM PROVIDED HISTORY: Reason for Exam: chest pain FINDINGS: Low lung volumes and hypoventilatory changes. Linear density at the right lung base. Rotation to the right. Mild peribronchial cuffing. Streaky left basilar infiltrate. Costophrenic angles are sharp. No pneumothorax. No acute skeletal abnormality. IMPRESSION: 1. Low lung volumes and hypoventilatory changes. 2. Streaky left basilar infiltrate, atelectasis and or consolidation. 3. Linear density at the right lung base, atelectasis and or scarring. 4. Bronchovascular crowding with mild peribronchial cuffing could reflect mild bronchitis/reactive airway disease. Interpreted by: Quincy Tay Preliminary Report By: Quincy Tay Electronically signed By Quincy Tay Dictated Date: 08/09/2024 1:54:56 PM Prelim Date: 08/09/2024 1:56:16 PM Sign Date: 08/09/2024 1:56:16 PM Ordering Provider: ENRIQUE Kimball [facility] .Auto Diffon 03-30-2024 Basophil, Absolute 0.1 10 3/mcL Normal 0.0-0.3 [facility] Comment on above: Performed By: #### T BETTE, CALLY, MDW, ADIFF, BMP, TSH, GFR, CBC #### [address] [address] Basophils/100 WBC (Bld) 0.6 % Normal 0.0-2.5 [facility] Comment on above: Performed By: #### T BETTE, ANEU, MDW, ADIFF, BMP, TSH, GFR, CBC #### [address] [address] Eosinophil, Absolute 0.1 10 3/mcL Normal 0.0-0.7 [facility] Comment on above: Performed By: #### T BETTE, CALLY, MDW, ADIFF, BMP, TSH, GFR, CBC #### [address] [address] Eosinophils/100 WBC (Bld) 1.6 % Normal 0.0-6.0 [facility] Comment on above: Performed By: #### T BETTE, CALLY, MDW, ADIFF, BMP, TSH, GFR, CBC #### [address] [address] Lymphocyte, Absolute 1.5 10 3/mcL Normal 0.9-4.3 [facility] Comment on above: Performed By: #### T BETTE, CALLY, MDW, ADIFF, BMP, TSH, GFR, CBC #### [address] [address] Lymphocytes/100 WBC (Bld) 16.5 % Low 20.0-40.0 [facility] Comment on above: Performed By: #### T BETTE, CALLY, MDW, ADIFF, BMP, TSH, GFR, CBC #### [address] [address] Monocyte, Absolute 0.8 10 3/mcL Normal 0.1-1.4 [facility] Comment on above: Performed By: #### T BETTE, ANEU, MDW, ADIFF, BMP, TSH, GFR, CBC #### [address] [address] Monocytes/100 WBC (Bld) 8.5 % Normal 2.0-13.0 [facility] Comment on above: Performed By: #### T CALLY AMOS MDW, BESSY, BMP, TSH, GFR, CBC #### [facility] [address] [place] [address] Neutrophils/100 WBC (Bld) 72.8 % Normal 50.0-75.0 [facility] Comment on above: Performed By: #### T CALLY AMOS MDW, ADRAISSA, BMP, TSH, GFR, CBC #### [facility] [address] [place] [address] .GFRon 03-30-2024 GFR Non- >60 [facility] MAIN Comment on above: Result Comment: GFR Population mean for , Non- Americans Ages 20-29 = 116 mL/min/1.73 sq.m. Ages 30-39 = 107 mL/min/1.73 sq.m. Ages 40-49 = 99 mL/min/1.73 sq.m. Ages 50-59 = 93 mL/min/1.73 sq.m. Ages 60-69 = 85 mL/min/1.73 sq.m. Ages 70+ = 75 mL/min/1.73 sq.m. Chronic Kidney Disease: Less than 60 mL/min/1.73 square meters End Stage Renal Disease: Less than 15 mL/min/1.73 square meters Performed By: #### T CALLY AMOS MDW, BESSY, BMP, TSH, GFR, CBC #### [address] [address] GFR >60 Normal [facility] Comment on above: Result Comment: GFR Population mean for , Non- Americans Ages 20-29 = 116 mL/min/1.73 sq.m. Ages 30-39 = 107 mL/min/1.73 sq.m. Ages 40-49 = 99 mL/min/1.73 sq.m. Ages 50-59 = 93 mL/min/1.73 sq.m. Ages 60-69 = 85 mL/min/1.73 sq.m. Ages 70+ = 75 mL/min/1.73 sq.m. Chronic Kidney Disease: Less than 60 mL/min/1.73 square meters End Stage Renal Disease: Less than 15 mL/min/1.73 square meters Performed By: #### T CALLY AMOS MDW, ADIFF, BMP, TSH, GFR, CBC #### [place] [address] .MDWon 03-30-2024 Monocyte Distribution Width 14.33 Normal 0.00-20.00 [facility] Comment on above: Result Comment: For ED adult patients suspected of sepsis, MDW<=20.0 does not rule out sepsis or risk of sepsis Performed By: #### T CALLY AMOS MDW, ADIFF, BMP, TSH, GFR, CBC #### [place] [address] .NEUABSon 03-30-2024 Neutrophil, Absolute 6.7 10 3/mcL Normal 2.3-8.1 [facility] Comment on above: Performed By: #### T CALLY AMOS MDW, ADIFF, BMP, TSH, GFR, CBC #### [place] [address] BMPon 03-30-2024 BUN/Creatinine Ratio 13.6 ratio Normal 10.0-22.0 [facility] Comment on above: Performed By: #### T CALLY AOMS MDW, ADIFF, BMP, TSH, GFR, CBC #### [place] [address] Calcium [Mass/Vol] 9.2 mg/dL Normal 8.7-10.4 [facility] Comment on above: Performed By: #### T CALLY AMOS MDW, ADIFF, BMP, TSH, GFR, CBC #### [place] [address] Chloride [Moles/Vol] 109 mmol/L Normal 98-110 [facility] Comment on above: Performed By: #### T CALLY AMOS MDW, ADIFF, BMP, TSH, GFR, CBC #### [place] [address] CO2 [Moles/Vol] 23 mmol/L Normal 22-32 [facility] Comment on above: Performed By: #### T CALLY AMOS MDW, ADIFF, BMP, TSH, GFR, CBC #### [address] [address] Creatinine [Mass/Vol] 0.66 mg/dL Normal 0.50-1.20 [facility] Comment on above: Result Comment: Test ing performed on Pivot analyzer using enzymatic creatinine methodology. Performed By: #### T CALLY AMOS MDW, ADRAISSA, BMP, TSH, GFR, CBC #### [address] [address] Electrolyte Balance 8.0 mEq/L Normal 4.0-15.0 [facility] Comment on above: Performed By: #### T CALLY AMOS MDW, ADIFF, BMP, TSH, GFR, CBC #### [address] [address] Glucose [Mass/Vol] 95 mg/dL Normal 70-110 [facility] Comment on above: Performed By: #### T CALLY AMOS MDW, ADIFF, BMP, TSH, GFR, CBC #### [address] [address] Potassium [Moles/Vol] 3.7 mmol/L Normal 3.5-5.0 [facility] Comment on above: Performed By: #### T CALLY AMOS MDW, ADIFF, BMP, TSH, GFR, CBC #### [address] [address] Sodium [Moles/Vol] 140 mmol/L Normal 136-145 [facility] Comment on above: Performed By: #### T CALLY AMOS MDW, ADIFF, BMP, TSH, GFR, CBC #### [address] [address] Urea nitrogen [Mass/Vol] 9.0 mg/dL Normal 8.0-22.0 [facility] Comment on above: Performed By: #### T CALLY AMOS MDW, ADIFF, BMP, TSH, GFR, CBC #### [address] [address] CBCon 03-30-2024 Erythrocyte distribution width (RBC) [Ratio] 12.9 % Normal 11.5-15.5 [facility] Comment on above: Performed By: #### T CALLY AMOS MDW, ADIFF, BMP, TSH, GFR, CBC #### [place] [address] Hematocrit (Bld) [Volume fraction] 36.7 % Normal 34.0-46.0 [facility] Comment on above: Performed By: #### T CALLY AMOS MDW, ADIFF, BMP, TSH, GFR, CBC #### [place] [address] Hgb 12.8 G/dL Normal 12.0-16.0 [facility] Comment on above: Performed By: #### T CALLY AMOS MDW, ADIFF, BMP, TSH, GFR, CBC #### [place] [address] MCH (RBC) [Entitic mass] 32.1 pg Normal 27.0-33.0 [facility] Comment on above: Performed By: #### T CALLY AMOS MDW, ADIFF, BMP, TSH, GFR, CBC #### [place] [address] MCHC 35.0 G/dL Normal 32.0-36.0 [facility] Comment on above: Performed By: #### T CALLY AMOS MDW, ADIFF, BMP, TSH, GFR, CBC #### [place] [address] MCV (RBC) [Entitic vol] 91.7 fL Normal 80.0-99.0 [facility] Comment on above: Performed By: #### T CALLY AMOS MDW, ADIFF, BMP, TSH, GFR, CBC #### [place] [address] Platelet 269 10 3/mcL Normal 150-450 [facility] Comment on above: Performed By: #### T CALLY AMOS MDW, ADIFF, BMP, TSH, GFR, CBC #### [place] [address] [place] [address] Platelet mean volume (Bld) [Entitic vol] 7.2 fL Normal 6.6-10.5 [facility] Comment on above: Performed By: #### T CALLY AMOS, FRANK, ADIFF, BMP, TSH, GFR, CBC #### [place] [address] [place] [address] RBC 4.00 10 6/mcL Low 4.10-5.30 [facility] Comment on above: Performed By: #### T CALLY AMOS, FRANK, ADIFF, BMP, TSH, GFR, CBC #### [place] [address] [place] [address] WBC 9.2 10 3/mcL Normal 4.5-10.8 [facility] Comment on above: Performed By: #### T BETTE, CALLY, FRANK, ADIFF, BMP, TSH, GFR, CBC #### [place] [address] LABORATORYOrdered By: SYSTEM SYSTEM on 03-30-2024 Basophils (Bld) [#/Vol] 0.1 103/mcL Normal 0.0 - 0.3 10^3/mcL AH Workflow SS Basophils/100 WBC (Bld) 0.6 % Normal 0.0 - 2.5 % AH Workflow SS Calcium [Mass/Vol] 9.2 mg/dL Normal 8.7 - 10. 4 mg/dL ADM SS Chloride [Moles/Vol] 109 mmol/L Normal 98 - 11 0 mEq/L ADM SS CO2 [Moles/Vol] 23 mmol/L Normal 22 - 32 mEq/L ADM SS Creatinine [Mass/Vol] 0.66 mg/dL Normal 0.50 - 1.20 mg/dL ADM SS Comment on above: Interpretive Data: T shruthiing performed on Pivot analyzer using enzymatic creatinine methodology. Electrolyte Balance 8.0 mEq/L Normal 4.0 - 15 .0 mEq/L ADM SS Eosinophils (Bld) [#/Vol] 0.1 103/mcL Normal 0.0 - 0.7 10^3/mcL AH Workflow SS Eosinophils/100 WBC (Bld) 1.6 % Normal 0.0 - 6.0 % AH Workflow SS Erythrocyte distribution width (RBC) [Ratio] 12.9 % Normal 11.5 - 15.5 % Workflow SS GFR/1.73 sq M.predicted among blacks MDRD (S/P/Bld) [Vol rate/Area] ml/min/1.73sqm Invalid Interpretation Code [facility] Comment on above: Interpretive Data: GFR Population mean for , Non- Americans Ages 20-29 = 116 mL/min/1.73 sq.m. Ages 30-39 = 107 mL/min/1.73 sq.m. Ages 40-49 = 99 mL/min/1.73 sq.m. Ages 50-59 = 93 mL/min/1.73 sq.m. Ages 60-69 = 85 mL/min/1.73 sq.m. Ages 70+ = 75 mL/min/1.73 sq.m. Chronic Kidney Disease: Less than 60 mL/min/1.73 square meters End Stage Renal Disease: Less than 15 mL/min/1.73 square meters GFR/1.73 sq M.predicted among non-blacks MDRD (S/P/Bld) [Vol rate/Area] ml/min/1.73sqm Invalid Interpretation Code [facility] Comment on above: Interpretive Data: GFR Population mean for , Non- Americans Ages 20-29 = 116 mL/min/1.73 sq.m. Ages 30-39 = 107 mL/min/1.73 sq.m. Ages 40-49 = 99 mL/min/1.73 sq.m. Ages 50-59 = 93 mL/min/1.73 sq.m. Ages 60-69 = 85 mL/min/1.73 sq.m. Ages 70+ = 75 mL/min/1.73 sq.m. Chronic Kidney Disease: Less than 60 mL/min/1.73 square meters End Stage Renal Disease: Less than 15 mL/min/1.73 square meters Glucose [Mass/Vol] 95 mg/dL Normal 70 - 110 mg/dL ADM Hematocrit (Bld) [Volume fraction] 36.7 % Normal 34.0 - 46.0 % Workflow Hemoglobin (Bld) [Mass/Vol] 12.8 G/dL Normal 12.0 - 16.0 G/dL Workflow SS Lymphocytes (Bld) [#/Vol] 1.5 103/mcL Normal 0.9 - 4.3 10^3/mcL AH Workflow SS Lymphocytes/100 WBC (Bld) 16.5 % Low 20.0 - 40.0 % AH Workflow SS MCH (RBC) [Entitic mass] 32.1 pg Normal 27.0 - 33.0 pg AH Workflow SS MCHC 35.0 G/dL Normal 32.0 - 36.0 G/dL AH Workflow SS MCV (RBC) [Entitic vol] 91.7 fL Normal 80.0 - 99.0 fL AH Workflow SS Monocyte distribution width Auto (Bld) [Entitic vol] 14.33 1 Normal 0.00 - 20.00 AH Workflow SS Comment on above: Result Comment: For ED adult patients suspected of sepsis, MDW<=20.0 does not rule out sepsis or risk of sepsis Monocytes (Bld) [#/Vol] 0.8 103/mcL Normal 0.1 - 1.4 10^3/mcL AH Workflow SS Monocytes/100 WBC (Bld) 8.5 % Normal 2.0 - 13.0 % AH Workflow SS Neutrophils (Bld) [#/Vol] 6.7 103/mcL Normal 2.3 - 8.1 10^3/mcL AH Workflow SS Neutrophils/100 WBC (Bld) 72.8 % Normal 50.0 - 75.0 % AH Workflow SS Platelet mean volume (Bld) [Entitic vol] 7.2 fL Normal 6.6 - 10.5 fL AH Workflow SS Platelets (Bld) [#/Vol] 269 103/mcL Normal 150 - 450 10^3/mcL AH Workflow SS Potassium [Moles/Vol] 3.7 mmol/L Normal 3.5 - 5.0 mEq/L ADM SS RBC (Bld) [#/Vol] 4.00 106/mcL Low 4.10 - 5.3 0 10^6/mcL AH Workflow SS Sodium [Moles/Vol] 140 mmol/L Normal 136 - 145 mEq/L ADM SS Troponin I.cardiac DL <= 0.01 ng/mL [Mass/Vol] ng/L Normal 0 - 34 ng/L ADM SS Comment on above: Interpretive Data: High Sensitive Troponin I Reference Ranges: Female: 0-34 ng/L Male: 0-54 ng/L Testing performed on PLASTIQ analyzer using direct chemiluminescent technology. TSH Qn 2.250 mIU/mL Normal 0.550 - 4.780 mIU/mL ADM SS Comment on above: Interpretive Data: * *Note - New Reference Range in effect 20 Urea nitrogen [Mass/Vol] 9.0 mg/dL Normal 8.0 - 22.0 mg/dL ADM SS Urea nitrogen/Creatinine [Mass ratio] 13.6 ratio Normal 10.0 - 22.0 ratio AH ADM SS WBC (Bld) [#/Vol] 9.2 103/mcL Normal 4.5 - 10.8 10^3/mcL AH Workflow SS TROPHSon 03-30-2024 High Sensitivity Troponin I <3 Normal 0-34 [facility] Comment on above: Result Comment: High Sensitive Troponin I Reference Ranges: Female: 0-34 ng/L Male: 0-54 ng/L Testing performed on Atell3scale IM analyzer using direct chemiluminescent technology. Performed By: #### T CALLY AMOS MDW, ADRAISSA, BMP, TSH, GFR, CBC #### [place] [address] TSHon 03-30-2024 TSH 2.250 mIU/mL Normal 0.550-4.780 [facility] Comment on above: Result Comment: No te - New Reference Range in effect 20 Performed By: #### T CALLY AMOS MDW, ADIFF, BMP, TSH, GFR, CBC #### [place] [address] XR CHEST 1 VIEWon 03-30-2024 XR CHEST 1 VIEW ORIGINAL EXAMINATION: ONE XRAY VIEW OF THE CHEST 03/30/2024 11:17 pm COMPARISON: None. HISTORY: ORDERING SYSTEM PROVIDED HISTORY: Reason for Exam: near syncope FINDINGS: The lungs are without acute focal process. There is no effusion or pneumothorax. The cardiomediastinal silhouette is without acute process. The osseous structures are without acute process. IMPRESSION: No acute process. Interpreted by: Carlos Miller Preliminary Report By: Carlos Miller Electronically signed By Carlos Miller Dictated Date: 03/30/2024 11:28:20 PM Prelim Date: 03/30/2024 11:28:32 PM Sign Date: 03/30/2024 11:28:32 PM Ordering Provider: MOLLY Kimball [facility] CNOVon 01-24-2024 CNOV Office Visit ([facility] ) -------- GERMAINE BROWNING ([id number]) 1990 F Date Time Provider Department 01/24/24 7:45 PM [facility] During your visit today, we recorded the following information about you: Temperature Pulse Respiration Blood pressure 98.7 degrees 112/minute 16/minute 120/72 Weight 48.1 kg MoMi garcia APRN.[employer] 01/24/2024 8:14 PM Signed This note was created using [employer]. Subjective Germaine Browning is a 33 year old female. HPI Patient complains of ongoing pain in her left hand for the last several months. She denies any known strain or trauma. She states it has been x-rayed at some point in the past with no specific findings noted. Review of Systems Constitutional: Negative for fatigue and fever. Musculoskeletal: Positive for arthralgias. Objective BP 120/72 Pulse 112 Temp 37.1 ?C (98.7 ?F) Resp 16 Wt 48.1 kg (106 lb 0.7 oz) LMP 12/20/2023 (Approximate) SpO2 99% BMI 19.40 kg/m? Physical Exam Vitals and nursing note reviewed. Constitutional: General: She is not in acute distress. Appearance: Normal appearance. She is not ill-appearing. HENT: Head: Normocephalic. Pulmonary: Effort: Pulmonary effort is normal. Musculoskeletal: General: Normal range of motion. Cervical back: Normal range of motion. Comments: Diffuse tenderness over the left hand with no specific swelling, ecchymosis, or deformities noted. Skin: General: Skin is warm and dry. Neurological: General: No focal deficit present. Mental Status: She is alert. Psychiatric: Mood and Affect: Mood normal. Behavior: Behavior normal. Assessment and Plan ASSESSMENT/PLAN: 1. Hand pain, left - ICD9: 729.5, ICD10: M79.64 - XR HAND GENERAL 3V PA/LAT/OBL LEFT Patient went to x-ray and at that time began to complain of pain in her right hand instead of her left. I subsequently went into the x-ray room and discussed with the patient and she now states that she has bilateral hand pain. I went to my desk to reorder bilateral hand x-rays and dairy technician informed me that when we left the x-ray room with the patient had walked out. At this point no radiologic testing was performed. My suspicion for any acute problem is minimal as patient notes ongoing pain for several months and on my evaluation had trouble deciding which hand was actually painful. Mi Wilkes, TREE SURGEON.[employer]ATION[employer]ER FI[employer]MAN Allergies As of Date: 01/24/2024 Noted Allergy Reaction PENICILLINS 02/12/2015 16 - Unknown Comments: Called pharmacy on this because pt was unsure of other allergies we might not have.Oleksandr cooper spoke with Tessie ADULT ALLERGY 01/19/2024 16 - Unknown Comments: Dust mites, trees, grasses, weeds, ragweed AUGMENTIN (AMOXICILLIN-POT CLAVUL*03/10/2005 2 - Rash NOVAK 11/21/2008 CLAVULANIC ACID 02/12/2015 8 - GI Upset CONTRAST DYE 04/05/2008 12 - Shortness of Breath LACTOSE 12/19/2007 6 - Diarrhea ORANGE 01/19/2024 16 - Unknown Date Reviewed: 01/24/2024 Reviewed by: Snehal Curran MA - Fully Assessed Reason for Visit: Hand Pain [1581] Cmt: right x couple months increasing Primary Visit Diagnosis:Hand pain, left [M79.642] Prescriptions as of 01/24/2024 - triamcinolone (KENALOG) 0.025 % cream Apply to affected area two times a day for 7 days. Problem List As Of Date 01/24/2024 Noted Resolved Malnutrition of moderate degree (HCC) [E44.0] 11/12/2007 09/02/2017 Anxiety state [F41.1] 11/12/2007 IRRITABLE COLON [K58.9] 11/12/2007 Allergic rhinitis [J30.9] PAROX ATRIAL TACHYCARDIA [I47.10] 06/20/2008 History of renal stone [Z87.442] 05/12/2011 Gastroesophageal reflux disease without esophag*09/02/2017 ASCUS with positive high risk HPV cervical [R87*11/03/2017 Encounter Status:Closed by MI WILKES on 01/24/24 Normal [facility] Hand Min 3 Viewson 4 Hand Min 3 Views [facility] Imaging Services [address] [place] [address] Hand Min 3 Views MR#: [id number] Acct: [id number] Name: GERMAINE BROWNING Rep #: [id number] : 1990 F 33 From: Berlin grimes MD PCP: Dr. Andrey Gill MD Status: PRE ER Study: Hand Min 3 Views Date of Exam: 01/24/24 Exam# [id number] Ordering Dr: Easton,Kalyan P. [id number] STUDY: X-RAY - RIGHT HAND REASON FOR EXAM: Female, 33 years old. Trauma TECHNIQUE: 3 view(s) of the hand. COMPARISON: None. FINDINGS: Normal radiocarpal articulation. Normal distal radioulnar joint. Normal visualized carpal bones. Normal carpal articulations Normal carpometacarpal articulation of the thumb. Normal second through fifth carpometacarpal joints. Normal metacarpi. Normal metacarpophalangeal joint of the thumb. Normal interphalangeal joint of the thumb. Normal proximal and distal phalanges of the thumb. Normal metacarpophalangeal joints of the second through fifth fingers. Normal proximal and distal interphalangeal joints of the second through fifth fingers. Normal phalanges of the second through fifth fingers. The soft tissue structures are unremarkable. RAD/Hand Min 3 Views IMPRESSION: Normal x-ray examination of the hand. Electronically Signed: Berlin Francis MD at 19:00 EDT , CC: Dr. Andrey Gill MD; ED PHYSICIAN PROVIDER Pediatric Surgeon: Signed Normal CNOVon 01-19-2024 CNOV Office Visit (UCWSTR ) -------- GERMAINE BROWNING ([id number]) 1990 F Date Time Provider Department 01/19/24 10:00 AM ALICIA MARRERO [facility] During your visit today, we recorded the following information about you: Temperature Pulse Respiration Blood pressure 99.1 degrees 97/minute 22/minute 138/95 Weight Last Period 45 kg 12/20/23 Alicia Marrero APRN.[employer]ER FIREMAN 01/19/2024 10:21 AM Signed Subjective Patient came in with bilateral feet itching. Patient says she does have a lot of fleas at home. Patient says she thinks is just flea bites that itch. Patient denies any other symptoms at this time. The history is provided by the patient. No medical language specialist was used. Review of Systems Constitutional: Negative. Skin: Positive for itching. Objective Physical Exam Constitutional: Appearance: Normal appearance. Pulmonary: Effort: Pulmonary effort is normal. Skin: Comments: Small tiny areas that are scabbed that appear to be scratched open. No signs of redness swelling or drainage. Neurological: Mental Status: She is alert. PAST MEDICAL HISTORY No date: Allergic rhinitis, cause unspecified 11/2007: Anxiety state, unspecified 09/26/2017: ASCUS with positive high risk HPV cervical 09/02/2017: Gastroesophageal reflux disease without esophagitis 05/12/2011: History of renal stone 11/2007: Irritable bowel syndrome 11/2007: Malnutrition of moderate degree (HCC) No date: PMH - PAST MEDICAL HISTORY OF Comment: hosp. 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 2006: PMH - PAST MEDICAL HISTORY OF Comment: hospitalized at [facility] for throat infection that required Iv antibiotics No date: PMH - PAST MEDICAL HISTORY OF Comment: age 13 diagnosed with hypoglycemia per family No date: PMH - PAST MEDICAL HISTORY OF Comment: age 14 diagnosed with bipolar disorder - had been seen at the [facility] but currently trying to get appt through [facility] PAST SURGICAL HISTORY No date: ASPIRATION OF PERITONSILLAR ABSCESS No date: SKIN BX, 1 LESION Comment: moles x 2, one atypical No date: TYMPANOSTOMY LOCAL/TOPICAL ANESTHESIA ALLERGIES Penicillins, Augmentin [Amoxicillin-Pot Clavulanate], Novak, Clavulanic Acid, Contrast Dye, Environmental Allergies [Other], Lactose, and [place] MEDICATIONS No prescriptions on file. FAMILY HISTORY Problem Relation Age of Onset [...] Topics Alcohol use: No Drug use: No ASSESSMENT/PLAN: 1. Itching - ICD9: 698.9, ICD10: L29.9 Patient was educated about proper use of medication and supportive therapies. Patient will follow-up with dermatology if this does not seem to work. Patient was okay with this care plan. Alicia Marrero APRN.STATIONARY BOILER FIREMAN Allergies As of Date: 01/19/2024 Noted Allergy Reaction PENICILLINS 02/12/2015 16 - Unknown Comments: Called pharmacy on this because pt was unsure of other allergies we might not have.Oleksandr cooper spoke with Tessie ADULT ALLERGY 01/19/2024 16 - Unknown Comments: Dust mites, trees, grasses, weeds, ragweed AUGMENTIN (AMOXICILLIN-POT CLAVUL*03/10/2005 2 - Rash NOVAK 11/21/2008 CLAVULANIC ACID 02/12/2015 8 - GI Upset CONTRAST DYE 04/05/2008 12 - Shortness of Breath LACTOSE 12/19/2007 6 - Diarrhea ORANGE 01/19/2024 16 - Unknown Date Reviewed: 01/19/2024 Reviewed by: Lynette Bermudez LPN - Fully Assessed Reason for Visit: Derm Problem [33] Cmt: Left back of neck open area, bilat feet possible flea bites itching, no pain x 1 week Primary Visit Diagnosis:Itching [L29.9] Order(s):triamcinolone (KENALOG) 0.025 % creamApply to affected area two times a day for 7 days.Disp: 15 gRfl: 0 Prescriptions as of 01/19/2024 - triamcinolone (KENALOG) 0.025 % cream Apply to affected area two times a day for 7 days. Problem List As Of Date 01/19/2024 Noted Resolved Malnutrition of moderate degree (HCC) [E44.0] 11/12/2007 09/02/2017 Anxiety state [F41.1] 11/12/2007 IRRITABLE COLON [K58.9] 11/12/2007 Allergic rhinitis [J30.9] PAROX ATRIAL TACHYCARDIA [I47.10] 06/20/2008 History of renal stone [Z87.442] 05/12/2011 Gastroesophageal reflux disease without esophag*09/02/2017 ASCUS with positive high risk HPV cervical [R87*11/03/2017 Prescriptions ordered this encounter Disp Refills Start End TRIAMCINOLO (more content not included)... Normal [facility] Absolute lymphocyte countOrd ered By: ED PROVIDER on 06-23-2023 Lymphocytes Auto (Unsp spec) [#/Vol] 2.91 10*3/uL 0.83-4.51 Basic Metabolic Profile (BMP )on 06-23-2023 BUN/CRE 14.8 RATIO Normal 10-20 Comment on above: Order Comment: 1 Y Performed By: #### L 100.0100, L500.2500, L501.5425 #### Laboratory [address] [place], [place], [id number] CA,Total 10.1 mg/dL Normal 8.5-10.1 Comment on above: Order Comment: 1 Y Performed By: #### L 100.0100, L500.2500, L501.5425 #### Laboratory [address] [place], [address] Chloride [Moles/Vol] 107 mmol/L Normal 98-107 [facility] Comment on above: Order Comment: 1 Y Performed By: #### L 100.0100, L500.2500, L501.5425 #### Laboratory [address] [place], [address] CO2 [Moles/Vol] 26.0 mmol/L Normal 21.0-32.0 Comment on above: Order Comment: 1 Y Performed By: #### L 100.0100, L500.2500, L501.5425 #### Laboratory [address] [place], [address] Creatinine [Mass/Vol] 0.68 mg/dL Normal 0.55-1.02 [facility] Comment on above: Order Comment: 1 Y Result Comment: The validity of the calculated GFR GFRAA in patients over 70 years has not been determined. Clinical correlation is essential. Performed By: #### L 100.0100, L500.2500, L501.5425 #### Laboratory [address] [place], [address] ECRCL 87.97 ml/min Normal Comment on above: Order Comment: 1 Y Performed By: #### L 100.0100, L500.2500, L501.5425 #### Laboratory [address] [place], [address] EST GFR - AA 128 mL/min Normal >60 Comment on above: Order Comment: 1 Y Result Comment: Afri can [place] GFR Calc Performed By: #### L 100.0100, L500.2500, L501.5425 #### Laboratory [address] [place], [address] GAP 7 Normal 5-15 Comment on above: Order Comment: 1 Y Performed By: #### L 100.0100, L500.2500, L501.5425 #### Laboratory [address] [place], [address] GFR/1.73 sq M.predicted among non-blacks MDRD (S/P/Bld) [Vol rate/Area] 106 mL/min/{1.73_m2} Normal >60 Comment on above: Order Comment: 1 Y Result Comment: Non- GFR Calc Performed By: #### L 100.0100, L500.2500, L501.5425 #### Laboratory [address] [place], [address] Glucose [Mass/Vol] 103 mg/dL Normal 74-106 [facility] Comment on above: Order Comment: 1 Y Result Comment: Fast ing Glucose result from 100 to 125 mg/dL suggests IMPAIRED HOMEOSTASIS per A.D.A. criteria. Performed By: #### L 100.0100, L500.2500, L501.5425 #### Laboratory [address] [place], [address] Potassium [Moles/Vol] 3.8 mmol/L Normal 3.5-5.1 [facility] Comment on above: Order Comment: 1 Y Performed By: #### L 100.0100, L500.2500, L501.5425 #### Laboratory [address] [place], [address] Sodium [Moles/Vol] 140 mmol/L Normal 136-145 [facility] Comment on above: Order Comment: 1 Y Performed By: #### L 100.0100, L500.2500, L501.5425 #### Laboratory [address] [place], [address] Urea nitrogen [Mass/Vol] 10 mg/dL Normal 7-18 Comment on above: Order Comment: 1 Y Performed By: #### L 100.0100, L500.2500, L501.5425 #### Laboratory [address] [place], [address] Basophil percentageOrdered B y: ED PROVIDER on 06-23-2023 Basophils/100 WBC (Bld) 0.5 % 0-1 Chloride [Moles/Vol] 107 mmol/L 98-107 [facility] Eosinophils/100 WBC (Bld) 2.5 % 0-5 Glucose [Mass/Vol] 103 mg/dL 74-106 [facility] Comment on above: Fasting Glucose resu lt from 100 to 125 mg/dL suggests IMPAIRED HOMEOSTASIS per A.D.A. criteria. Neutrophils (Bld) [#/Vol] 5.9 10*3/uL 2.0-7.7 Neutrophils/100 WBC (Bld) 58.8 % 47-70 Potassium [Moles/Vol] 3.8 mmol/L 3.5-5.1 [facility] Sodium [Moles/Vol] 140 mmol/L 136-145 [facility] WBC (Bld) [#/Vol] 10.0 10*3/uL 4.4-11.0 [facility] Blood erythrocytes count (nu mber/volume)Ordered By: ED PROVIDER on 06-23-2023 RBC (Bld) [#/Vol] 4.93 10*6/uL 4.2-5.4 [facility] Blood hemoglobin measurement (mass/volume)Ordered By: ED PROVIDER on 06-23-2023 Hemoglobin (Bld) [Mass/Vol] 15.8 g/dL 12.0-15.0 Blood lymphocytes/100 leukoc ytesOrdered By: ED PROVIDER on 06-23-2023 Lymphocytes/100 WBC (Bld) 29.2 % 19-41 Blood monocytes/100 leukocyt esOrdered By: ED PROVIDER on 06-23-2023 Monocytes/100 WBC (Bld) 8.7 % 0-10 Blood platelet mean volumeOr dered By: ED PROVIDER on 06-23-2023 Platelet mean volume (Bld) [Entitic vol] 9.3 fL 6.2-12.0 CBC W/Diff, Automatedon 06-13 Absolute Lymph 2.91 X10 3/uL Normal 0.83-4.51 Comment on above: Performed By: #### L 100.0100, L500.2500, L501.5425 #### Laboratory [address] [place], [address] Absolute Neut 5.9 X10 3/uL Normal 2.0-7.7 Comment on above: Performed By: #### L 100.0100, L500.2500, L501.5425 #### Laboratory [address] [place], [address] Basophils/100 WBC (Bld) 0.5 % Normal 0-1 Comment on above: Performed By: #### L 100.0100, L500.2500, L501.5425 #### Laboratory [address] [place], [address] Eosinophils/100 WBC (Bld) 2.5 % Normal 0-5 Comment on above: Performed By: #### L 100.0100, L500.2500, L501.5425 #### Laboratory [address] [place], [address] Erythrocyte distribution width (RBC) [Ratio] 11.9 % Normal 11.6-14.6 Comment on above: Performed By: #### L 100.0100, L500.2500, L501.5425 #### Laboratory [address] [place], [address] Hematocrit (Bld) [Volume fraction] 43.8 % Normal 37-47 Comment on above: Performed By: #### L 100.0100, L500.2500, L501.5425 #### Laboratory [address] [place], [address] Hemoglobin (Bld) [Mass/Vol] 15.8 g/dL High 12.0-15.0 Comment on above: Performed By: #### L 100.0100, L500.2500, L501.5425 #### Laboratory [address] [place], [address] IG% 0.300 Normal 0.0-0.9 Comment on above: Result Comment: IG% - Immature Granulocytes (promyelocytes, myelocytes and metamyelocytes) > 1% indicates that a LEFT SHIFT is Present. Performed By: #### L 100.0100, L500.2500, L501.5425 #### Laboratory [address] [place], [address] Lymphocytes/100 WBC (Bld) 29.2 % Normal 19-41 Comment on above: Performed By: #### L 100.0100, L500.2500, L501.5425 #### Laboratory [address] [place], [address] MCH (RBC) [Entitic mass] 32.0 pg Normal 27.0-32.0 Comment on above: Performed By: #### L 100.0100, L500.2500, L501.5425 #### Laboratory [address] [place], [address] MCHC (RBC) [Mass/Vol] 36.1 g/dL High 32-36 [facility] Comment on above: Performed By: #### L 100.0100, L500.2500, L501.5425 #### Laboratory [address] [place], [address] MCV (RBC) [Entitic vol] 88.8 fL Normal 81-99 Comment on above: Performed By: #### L 100.0100, L500.2500, L501.5425 #### Laboratory [address] [place], [address] Monocytes/100 WBC (Bld) 8.7 % Normal 0-10 Comment on above: Performed By: #### L 100.0100, L500.2500, L501.5425 #### Laboratory [address] [place], [address] Neutrophils/100 WBC (Bld) 58.8 % Normal 47-70 Comment on above: Performed By: #### L 100.0100, L500.2500, L501.5425 #### Laboratory [address] [place], [address] Nucleated RBC (Bld) [#/Vol] 0 10*3/uL Normal 0-5 Comment on above: Performed By: #### L 100.0100, L500.2500, L501.5425 #### Laboratory [address] [place], [address] Platelet mean volume (Bld) [Entitic vol] 9.3 fL Normal 6.2-12.0 Comment on above: Performed By: #### L 100.0100, L500.2500, L501.5425 #### Laboratory [address] [place], [address] Platelets (Bld) [#/Vol] 362 10*3/uL Normal 150-450 Comment on above: Performed By: #### L 100.0100, L500.2500, L501.5425 #### Laboratory [address] [place], [address] RBC (Bld) [#/Vol] 4.93 10*6/uL Normal 4.2-5.4 [facility] Comment on above: Performed By: #### L 100.0100, L500.2500, L501.5425 #### Laboratory [address] [place], [address] RDW SD 38.3 fl Normal 35.1-43.9 Comment on above: Performed By: #### L 100.0100, L500.2500, L501.5425 #### Laboratory [address] [place], [address] WBC (Bld) [#/Vol] 10.0 10*3/uL Normal 4.4-11.0 [facility] Comment on above: Performed By: #### L 100.0100, L500.2500, L501.5425 #### Laboratory [address] [place], [address] Chest 1 View (Portable)on Chest 1 View (Portable) [facility] Imaging Services [address] [facility] [address] Chest 1 View (Portable) MR#: [id number] Acct: [id number] Name: GERMAINE BROWNING Rep #: [id number] : 1990 F 33 From: Omari Hartmann MD PCP: Dr. Andrey Gill MD Status: [facility] ER Study: Chest 1 View (Portable) Date of Exam: 06/23/23 Exam# [id number] Ordering Dr: Kalyan Mccormack [id number] STUDY: X-RAY CHEST REASON FOR EXAM: Female, 33 years old. Chest pain TECHNIQUE: Single AP portable view of the chest. COMPARISON: 09/02/2018 FINDINGS: EKG leads overlie the chest The lungs are clear and expanded. There is no demonstrated pleural abnormality. Normal size heart. Normal mediastinum and jan. Normal visualized pulmonary arteries. Normal visualized aortic arch and descending thoracic aorta. Normal visualized thoracic spine. Normal visualized ribs, clavicles, and shoulders. There is no demonstrated abnormality of the visualized soft tissue structures of the upper abdomen. RAD/Chest 1 View (Portable) IMPRESSION: Normal x-ray examination of the chest. Electronically Signed: Rajat Hartmann MD at 20:27 EST , CC: Dr. Andrey Gill MD; ED PHYSICIAN PROVIDER Pediatric Surgeon: Signed Normal Determination of erythrocyte mean corpuscular volume (MCV)Ordered By: ED PROVIDER on 06-23-2023 MCV (RBC) [Entitic vol] 88.8 fL 81-99 Emergency Department Summary on 06-23-2023 Emergency Department Summary [facility] Medical Records Department [address] [place] [address] Emergency Department Summary 06/23/23 MR#: [id number] Acct: [id number] Name: GERMAINE BROWNING Rep #: [id number] : 1990 33 From: Ry Portillo DO PCP: Dr. Andrey Gill MD Status:REG ER Location: ED HPI History of Present Illness Chief Complaint: Palpitations Narrative Narrative: 33-year-old female presenting with anxiety. She has a history of schizophrenia. She states she felt very anxious today and having palpitations. She states she has a history of SVT but has had a cardiac workup and echocardiogram. Patient states that she has no cardiac history. She is not short of breath. No fevers or chills. She states she just feels a little bit off. She does not have chest pain. [facility] Medical History Schizophrenia SVT (supraventricular tachycardia) Home Medications hydroxyzine pamoate 25 mg capsule (Vistaril) 25 mg PO TID PRN anxiety #30 caps 06/23/23 [Rx Last Taken Unknown] Allergy/AdvReac Type Severity Reaction Status Date / Time amoxicillin trihydrate Allergy Unknown Verified 06/23/23 19:45 [From Augmentin] iodine Allergy Shortness Verified 06/23/23 19:45 of breath potassium clavulanate Allergy Unknown Verified 06/23/23 19:45 [From Augmentin] haloperidol [From Haldol] AdvReac Other Verified 06/23/23 19:45 haloperidol lactate AdvReac Other Verified 06/23/23 19:45 [From Haldol] Social History Smoking Status: Never smoker EXAM Physical Exam Const Vital Signs: 06/23/23 19:42 06/23/23 19:47 06/23/23 19:56 Temperature 97 F L Temperature Source Temporal Pulse Rate 122 H Respiratory Rate 18 Respiratory Effort Normal Non-Labored Blood Pressure 175/102 H Blood Pressure Mean 126 Pulse Ox 98 100 Oxygen Delivery Method Room Air Room Air 06/23/23 21:00 Temperature Temperature Source Pulse Rate 105 H Respiratory Rate 22 H Respiratory Effort Blood Pressure 155/105 H Blood Pressure Mean 121 Pulse Ox 94 Oxygen Delivery Method Room Air Positive well nourished General Appearance ED: Negative for pallor HEENT Reports normocephalic and moist mucous membranes Eyes PERRL and EOMs intact bilaterally Resp normal respiratory effort and clear to auscultation bilaterally Auscultation: Negative for rales, rhonchi or wheezes Cardio regular rhythm Rate: tachycardic GI normal to inspection, nondistended, normoactive bowel sounds and non-distended Narrative: Deferred Extremity normal to inspection Neuro oriented x3 and CN's II-XII intact bilaterally Sensorium / Orientation: alert Motor Exam: strength 5/5 throughout Psych mental status grossly normal Attitude: No agitated Mood Affect: anxious Skin no rashes or lesions noted and no wounds General Skin Exam: Negative for jaundice or pallor MDM MDM MDM Narrative Medical decision making narrative: Patient presenting with anxiety and palpitations. Differential includes ACS, SVT, pneumonia, anxiety, dehydration, anemia, [place] abnormalities. CBC was obtained to assess for blood cell count, hemoglobin, platelets. BMP to assess renal function, electrolytes, glucose. High- sensitivity troponin and EKG to assess for ischemia/dysrhythmia. EKG on my interpretation is normal sinus rhythm with a ventricular rate of 97 bpm without time ischemic change or ectopy. Chest x-ray my interpretation shows no acute process. Radiology interprets this and agrees. CBC, BMP unremarkable. High-sensitivity troponin is 4. Given that the patient's had the symptoms since noon I do believe she needs a delta troponin. Did not have any chest pain I below suspicion for PE. I do suspect she has a lot of anxiety and she does have a history of schizophrenia but she does not appear manic. She not hallucinating. She is resting comfortably in no acute distress. We discussed starting some Vistaril to help her with anxiety symptoms. Patient will call her mother for a ride. Impression: 1. Palpitation 2. Tachycardia 3. Anxiety Lab Data Attestation: I reviewed the patient's lab results. Labs: Laboratory Results - last 24 hr 06/23/23 19:43 WBC 10.0 RBC 4.93 Hgb 15.8 H Hct 43.8 MCV 88.8 MCH 32.0 MCHC 36.1 H RDW Std Deviation 38.3 RDW Coeff of Mitchel 11.9 Plt Count 362 MPV 9.3 Immature Gran % (Auto) 0.300 Neut % (Auto) 58.8 Lymph % (Auto) 29.2 [place] % (Auto) 8.7 Eos % (Auto) 2.5 Baso % (Auto) 0.5 Absolute Neuts (auto) 5.9 Absolute Lymphs (auto) 2.91 Nucleated RBC % 0 Sodium 140 Potassium 3.8 Chloride 107 Carbon Dioxide 26.0 Anion Gap 7 (more content not included)... Normal Hematocrit Auto (Bld) [Volum e fraction]Ordered By: ED PROVIDER on 06-23-2023 Hematocrit (Bld) [Volume fraction] 43.8 % 37-47 L501.5425on 06-23-2023 TROPONIN-I HS 4 pg/mL Normal 3.0-54.0 Comment on above: Order Comment: 1 Y Result Comment: Tatyana alvarado Note: New Test Units and Gender Specific Reference Ranges. For more information see Policy Stat Procedure [place] High Sensitivity Troponin (TNIH) and attachments. Performed By: #### L 100.0100, L500.2500, L501.5425 #### Laboratory [address] [place], [address] Laboratory - Chemistry and C hemistry - challengeOrdered By: ED PROVIDER on 06-23-2023 CO2 [Moles/Vol] 26.0 mmol/L 21.0-32.0 Urea nitrogen/Creatinine [Mass ratio] 14.8 mg/mg 10-20 Laboratory - Hematology and Cell countsOrdered By: ED PROVIDER on 06-23-2023 Erythrocyte distribution width (RBC) [Entitic vol] 38.3 fL 35.1-43.9 Erythrocyte distribution width (RBC) [Ratio] 11.9 % 11.6-14.6 Immature granulocytes/100 WBC (Bld) 0.300 % 0.0-0.9 Comment on above: IG% - Immature Granu locytes (promyelocytes, myelocytes and metamyelocytes) > 1% indicates that a LEFT SHIFT is Present. MCH (RBC) [Entitic mass] 32.0 pg 27.0-32.0 Nucleated RBC/100 WBC (Bld) [Ratio] 0 % 0-5 MCHC Auto (RBC) [Mass/Vol]Or dered By: ED PROVIDER on 06-23-2023 MCHC (RBC) [Mass/Vol] 36.1 g/dL 32-36 [facility] No Panel InformationOrdered By: ED PROVIDER on 06-23-2023 Estimated Creatinine Clearance Calc 87.97 ml/min Estimated GFR (MDRD) Amer 128 mL/min >60 Comment on above: GFR Calc Estimated GFR (MDRD) Non-Af Amer 106 mL/min >60 Comment on above: Non- GFR Calc Troponin I High Sensitivity 4 pg/mL 3.0-54.0 Comment on above: Please Note: New Lena t Units and Gender Specific Reference Ranges. For more information see Policy Stat Procedure [place] High Sensitivity Troponin (TNIH) and attachments. Platelets bldOrdered By: ED PROVIDER on 06-23-2023 Platelets (Bld) [#/Vol] 362 10*3/uL 150-450 Serum or plasma calcium haley urement (mass/volume)Ordered By: ED PROVIDER on 06-23-2023 Calcium [Mass/Vol] 10.1 mg/dL 8.5-10.1 [facility] Serum or plasma creatinine m easurement (mass/volume)Ordered By: ED PROVIDER on 06-23-2023 Creatinine [Mass/Vol] 0.68 mg/dL 0.55-1.02 [facility] Comment on above: The validity of the calculated GFR & GFRAA in patients over 70 years has not been determined. Clinical correlation is essential. Serum or plasma urea nitroge n measurement (mass/volume)Ordered By: ED PROVIDER on 06-23-2023 Urea nitrogen [Mass/Vol] 10 mg/dL 7-18 Thin prep Papanicolaou smear with manual screeningOrdered By: ED PROVIDER on 06-23-2023 Thin prep Papanicolaou smear with manual screening 7 5-15 CBC W Auto Differential pane l (Bld)on 05-25-2023 Basophils (Bld) [#/Vol] 0.08 10*3/uL Normal <0.11 [facility] Comment on above: Order Comment: Speci men Type: BLOOD SPECIMEN Ordering Facility: [facility] Address: [address] [place] [address] Performed By: #### 5 7021-8 #### [facility] CLIA [id number] [address] [place] [address] [place] Basophils/100 WBC (Bld) 0.9 % Normal [facility] Comment on above: Order Comment: Speci men Type: BLOOD SPECIMEN Ordering Facility: [facility] Address: [address] [place] [address] Performed By: #### 5 7021-8 #### [facility] CLIA [id number] [address] [place] [address] [place] [place] Differential cell count method Nom (Bld) Auto Normal [facility] Comment on above: Order Comment: Speci men Type: BLOOD SPECIMEN Ordering Facility: [facility] Address: [address] [place] [address] Performed By: #### 5 7021-8 #### [facility] CLIA [id number] [address] [place] [address] [place] Eosinophils (Bld) [#/Vol] 0.33 10*3/uL Normal <0.46 [facility] Comment on above: Order Comment: Speci men Type: BLOOD SPECIMEN Ordering Facility: [facility] Address: [address] [place] [address] Performed By: #### 5 7021-8 #### [facility] CLIA [id number] [address] [place] [address] [place] Eosinophils/100 WBC (Bld) 3.7 % Normal [facility] Comment on above: Order Comment: Speci men Type: BLOOD SPECIMEN Ordering Facility: [facility] Address: [address] [place] [address] Performed By: #### 5 7021-8 #### [facility] CLIA [id number] [address] [place] [address] [place] Erythrocyte distribution width (RBC) [Ratio] 11.9 % Normal 11.5-15.0 [facility] Comment on above: Order Comment: Speci men Type: BLOOD SPECIMEN Ordering Facility: [facility] Address: [address] [place] [address] Performed By: #### 5 7021-8 #### [facility] CLIA [id number] [address] [place] [address] [place] Hematocrit (Bld) [Volume fraction] 40.8 % Normal 36.0-46.0 [facility] Comment on above: Order Comment: Speci men Type: BLOOD SPECIMEN Ordering Facility: [facility] Address: [address] [place] [address] Performed By: #### 5 7021-8 #### [facility] CLIA [id number] [address] [place] [address] [place] Hemoglobin (Bld) [Mass/Vol] 13.9 g/dL Normal 11.5-15.5 [facility] Comment on above: Order Comment: Speci men Type: BLOOD SPECIMEN Ordering Facility: The [facility] Address: [address] [place] [address] Performed By: #### 5 7021-8 #### [facility] CLIA [id number] [address] [place] [address] [place] Immature granulocytes (Bld) [#/Vol] 0.03 10*3/uL Normal <0.10 [facility] Comment on above: Order Comment: Speci men Type: BLOOD SPECIMEN Ordering Facility: [facility] Address: [address] [place] [address] Performed By: #### 5 7021-8 #### [facility] CLIA [id number] [address] [place] [address] [place] Immature granulocytes/100 WBC (Bld) 0.3 % Normal [facility] Comment on above: Order Comment: Speci men Type: BLOOD SPECIMEN Ordering Facility: [facility] Address: [address] [place] [address] Performed By: #### 5 7021-8 #### [facility] CLIA [id number] [address] [place] [address] [place] Lymphocytes (Bld) [#/Vol] 2.80 10*3/uL Normal 1.00-4.00 [facility] Comment on above: Order Comment: Speci men Type: BLOOD SPECIMEN Ordering Facility: [facility] Address: [address] [place] [address] Performed By: #### 5 7021-8 #### [facility] CLIA [id number] [address] [place] [address] [place] Lymphocytes/100 WBC (Bld) 31.3 % Normal [facility] Comment on above: Order Comment: Speci men Type: BLOOD SPECIMEN Ordering Facility: The [facility] Address: [address] [place] [address] Performed By: #### 5 7021-8 #### [facility] CLIA [id number] [address] [place] [address] [place] MCH (RBC) [Entitic mass] 31.2 pg Normal 26.0-34.0 [facility] Comment on above: Order Comment: Speci men Type: BLOOD SPECIMEN Ordering Facility: [facility] Address: [address] [place] [address] Performed By: #### 5 7021-8 #### [facility] CLIA [id number] [address] [place] [address] [place] MCHC (RBC) [Mass/Vol] 34.1 g/dL Normal 30.5-36.0 [facility] Comment on above: Order Comment: Speci men Type: BLOOD SPECIMEN Ordering Facility: [facility] Address: [address] [place] [address] Performed By: #### 5 7021-8 #### [facility] CLIA [id number] [address] [place] [address] [place] MCV (RBC) [Entitic vol] 91.5 fL Normal 80.0-100.0 [facility] Comment on above: Order Comment: Speci men Type: BLOOD SPECIMEN Ordering Facility: [facility] Address: [address] [place] [address] Performed By: #### 5 7021-8 #### [facility] CLIA [id number] [address] [place] [address] [place] Monocytes (Bld) [#/Vol] 0.84 10*3/uL Normal <0.87 [facility] Comment on above: Order Comment: Speci men Type: BLOOD SPECIMEN Ordering Facility: [facility] Address: [address] [place] [address] Performed By: #### 5 7021-8 #### [facility] CLIA [id number] [facility] [place] [address] [place] Monocytes/100 WBC (Bld) 9.4 % Normal [facility] Comment on above: Order Comment: Speci men Type: BLOOD SPECIMEN Ordering Facility: [facility] Address: [address] [place] [address] Performed By: #### 5 7021-8 #### [facility] CLIA [id number] [address] [place] [address] [place] Neutrophils (Bld) [#/Vol] 4.86 10*3/uL Normal 1.45-7.50 [facility] Comment on above: Order Comment: Speci men Type: BLOOD SPECIMEN Ordering Facility: [facility] Address: [address] [place] [address] Performed By: #### 5 7021-8 #### [facility] CLIA [id number] [address] [place] [address] [place] Neutrophils/100 WBC (Bld) 54.4 % Normal [facility] Comment on above: Order Comment: Speci men Type: BLOOD SPECIMEN Ordering Facility: [facility] Address: [address] [place] [address] Performed By: #### 5 7021-8 #### [facility] CLIA [id number] [address] [place] [address] [place] Nucleated RBC (Bld) [#/Vol] 10*3/uL Normal <0.01 [facility] Comment on above: Order Comment: Speci men Type: BLOOD SPECIMEN Ordering Facility: [facility] Address: [address] [place] [address] Performed By: #### 5 7021-8 #### [facility] CLIA [id number] [address] [place] [address] [place] Nucleated RBC/100 WBC (Bld) [Ratio] 0.0 /100 WBC Normal [facility] Comment on above: Order Comment: Speci men Type: BLOOD SPECIMEN Ordering Facility: [facility] Address: [address] [place] [address] Performed By: #### 5 7021-8 #### [facility] CLIA [id number] [address] [place] [address] [place] Platelet mean volume (Bld) [Entitic vol] 9.8 fL Normal 9.0-12.7 [facility] Comment on above: Order Comment: Speci men Type: BLOOD SPECIMEN Ordering Facility: [facility] Address: [address] [place] [address] Performed By: #### 5 7021-8 #### [facility] CLIA [id number] [address] [place] [address] [place] Platelets (Bld) [#/Vol] 287 10*3/uL Normal 150-400 [facility] Comment on above: Order Comment: Speci men Type: BLOOD SPECIMEN Ordering Facility: [facility] Address: [address] [place] [address] Performed By: #### 5 7021-8 #### [facility] CLIA [id number] [address] [place] [address] [place] RBC (Bld) [#/Vol] 4.46 10*6/uL Normal 3.90-5.20 [facility] Comment on above: Order Comment: Speci men Type: BLOOD SPECIMEN Ordering Facility: [facility] Address: [address] [place] [address] Performed By: #### 5 7021-8 #### [facility] CLIA [id number] [address] [place] [address] [place] WBC (Bld) [#/Vol] 8.94 10*3/uL Normal 3.70-11.00 [facility] Comment on above: Order Comment: Speci men Type: BLOOD SPECIMEN Ordering Facility: The [facility] Address: [address] [place] [address] Performed By: #### 5 7021-8 #### [facility] CLIA [id number] [address] [place] [address] [place] Comprehensive metabolic 2000 panelon 05-25-2023 Albumin [Mass/Vol] 4.5 g/dL Normal 3.9-4.9 [facility] Comment on above: Order Comment: Speci men Type: BLOOD SPECIMEN Ordering Facility: The [facility] Address: [address] [place] [address] Performed By: #### 3 016-3, LIPTONY, 61297-1 #### [facility] CLIA [id number] [address] [place] [address] [place] ALP [Catalytic activity/Vol] 64 U/L Normal 34-123 [facility] Comment on above: Order Comment: Speci men Type: BLOOD SPECIMEN Ordering Facility: [facility] Address: [address] [place] [address] Performed By: #### 3 016-3, LIPNF, 05603-4 #### [facility] CLIA [id number] [address] [place] [address] [place] ALT [Catalytic activity/Vol] 10 U/L Normal 7-38 [facility] Comment on above: Order Comment: Speci men Type: BLOOD SPECIMEN Ordering Facility: The [facility] Address: [address] [place], [place] [address] Performed By: #### 3 016-3, LIPNF, 74286-8 #### [facility] CLIA [id number] [address] [place], [place] [address] [place] Anion gap [Moles/Vol] 10 mmol/L Normal 9-18 [facility] Comment on above: Order Comment: Speci men Type: BLOOD SPECIMEN Ordering Facility: [facility] Address: [address] [place] [address] Performed By: #### 3 016-3, LIPNF, 71899-5 #### [facility] CLIA [id number] [address] [place] [address] [place] AST [Catalytic activity/Vol] 17 U/L Normal 13-35 [facility] Comment on above: Order Comment: Speci men Type: BLOOD SPECIMEN Ordering Facility: The [facility] Address: [address] [place], [place] [address] Performed By: #### 3 016-3, LIPNF, 11431-8 #### [facility] CLIA [id number] [address] [place] [address] [place] Bilirubin [Mass/Vol] 1.8 mg/dL High 0.2-1.3 [facility] Comment on above: Order Comment: Speci men Type: BLOOD SPECIMEN Ordering Facility: [facility] Address: [address] [place] [address] Performed By: #### 3 016-3, LIPNF, 77485-5 #### [facility] CLIA [id number] [address] [place] [address] [place] Calcium [Mass/Vol] 9.3 mg/dL Normal 8.5-10.2 [facility] Comment on above: Order Comment: Speci men Type: BLOOD SPECIMEN Ordering Facility: The [facility] Address: [address] [place], [place] [address] Performed By: #### 3 016-3, LIPNF, 70148-3 #### [facility] CLIA [id number] [address] [place] [address] [place] Chloride [Moles/Vol] 104 mmol/L Normal 97-105 [facility] Comment on above: Order Comment: Speci men Type: BLOOD SPECIMEN Ordering Facility: [facility] Address: [address] [place] [address] Performed By: #### 3 016-3, LIPNF, 54656-6 #### [facility] CLIA [id number] [address] [place] [address] [place] CO2 [Moles/Vol] 23 mmol/L Normal 22-30 [facility] Comment on above: Order Comment: Speci men Type: BLOOD SPECIMEN Ordering Facility: [facility] Address: [address] [place] [address] Performed By: #### 3 016-3, LIPNF, 51546-5 #### [facility] CLIA [id number] [address] [place] [address] [place] Creatinine [Mass/Vol] 0.56 mg/dL Low 0.58-0.96 [facility] Comment on above: Order Comment: Speci men Type: BLOOD SPECIMEN Ordering Facility: [facility] Address: [address] [place] [address] Performed By: #### 3 016-3, LIPNF, 46683-4 #### [facility] CLIA [id number] [address] [place] [address] [place] Creatinine and Glomerular filtration rate.predicted panel (S/P/Bld) 123 mL/min/1.73m??? Normal >=60 [facility] Comment on above: Order Comment: Speci men Type: BLOOD SPECIMEN Ordering Facility: [facility] Address: [address] [place] [address] Result Comment: Ginan mated Glomerular Filtration Rate (eGFR) is calculated using the 2020 CKD-EPI creatinine equation. This equation utilizes serum creatinine, sex, and age as parameters. The creatinine assay has traceable calibration to isotope dilution-mass spectrometry. Refer to KDIGO guidelines for clinical interpretation. In patients with unstable renal function, e.g. those with acute kidney injury, the eGFR may not accurately reflect actual GFR. Performed By: #### 3 016-3, LIPNF, 15286-3 #### [facility] CLIA [id number] [address] [address] [place] Glucose [Mass/Vol] 77 mg/dL Normal 74-99 [facility] Comment on above: Order Comment: Speci men Type: BLOOD SPECIMEN Ordering Facility: [facility] Address: [address] [place] [address] Result Comment: The [place] Diabetes [employer] (ADA) provides guidance for cutoff values for fasting glucose and random glucose. The ADA defines fasting as no caloric intake for at least 8 hours. Fasting plasma glucose results between 100 to 125 mg/dL indicate increased risk for diabetes (prediabetes). Fasting plasma glucose results greater than or equal to 126 mg/dL meet the criteria for diagnosis of diabetes. In the absence of unequivocal hyperglycemia, results should be confirmed by repeat testing. In a patient with classic symptoms of hyperglycemia or hyperglycemic crisis, random plasma glucose results greater than or equal to 200 mg/dL meet the criteria for diagnosis of diabetes. Reference: Standards of Medical Care in Diabetes 2016, [place] [employer]. Diabetes Care. 2016.39(Suppl 1). Performed By: #### 3 016-3, LIPNF, 45580-3 #### [facility] CLIA [id number] [address] [place] [address] [place] Potassium [Moles/Vol] 3.9 mmol/L Normal 3.7-5.1 [facility] Comment on above: Order Comment: Speci men Type: BLOOD SPECIMEN Ordering Facility: [facility] Address: [address] [place] [address] Performed By: #### 3 016-3, LIPNF, 79593-2 #### [facility] CLIA [id number] [address] [place], [place] [address] [place] Protein [Mass/Vol] 7.0 g/dL Normal 6.3-8.0 [facility] Comment on above: Order Comment: Speci men Type: BLOOD SPECIMEN Ordering Facility: [facility] Address: [address] [place] [address] Performed By: #### 3 016-3, LIPNF, 02046-9 #### [facility] CLIA [id number] [address] [place] [address] [place] Sodium [Moles/Vol] 137 mmol/L Normal 136-144 [facility] Comment on above: Order Comment: Speci men Type: BLOOD SPECIMEN Ordering Facility: [facility] Address: [address] [place] [address] Performed By: #### 3 016-3, LIPNF, 45442-5 #### [facility] CLIA [id number] [address] [place] [address] [place] Urea nitrogen [Mass/Vol] 4 mg/dL Low 7-21 [facility] Comment on above: Order Comment: Speci men Type: BLOOD SPECIMEN Ordering Facility: [facility] Address: [address] [place] [address] Performed By: #### 3 016-3, LIPNF, 20548-1 #### [facility] CLIA [id number] [address] [place] [address] [place] LIPID PANEL, NONFASTINGon Cholesterol [Mass/Vol] 144 mg/dL Normal <200 [facility] Comment on above: Order Comment: Speci men Type: BLOOD SPECIMEN Ordering Facility: The [facility] Address: [address] [place], [place] [id number] Result Comment: <200 mg/dL, Desirable 200-239 mg/dL, Borderline high >239 mg/dL, High Performed By: #### 3 016-3, LIPNF, 16982-1 #### [facility] CLIA [id number] [address] [place] [address] [place] HDL CHOLESTEROL, NF 53 mg/dL Normal >39 [facility] Comment on above: Order Comment: Speci men Type: BLOOD SPECIMEN Ordering Facility: [facility] Address: [address] [place] [address] Result Comment: 40-5 9 mg/dL, Acceptable >59 mg/dL, High: Negative risk factor for coronary heart disease <40 mg/dL, Low: Positive risk factor for coronary heart disease Performed By: #### 3 016-3, LIPNF, 77220-4 #### [facility] CLIA [id number] [address] [place] [address] [place] LDL CHOLESTEROL, NF 75 mg/dL Normal <100 [facility] Comment on above: Order Comment: Speci men Type: BLOOD SPECIMEN Ordering Facility: [facility] Address: [address] [place] [address] Result Comment: <100 mg/dL, Optimal 100-129 mg/dL, Near optimal/above optimal 130-159 mg/dL, Borderline high 160-189 mg/dL, High >189 mg/dL, Very high Secondary prevention optimal LDL Cholesterol levels are recommended to be < 70 mg/dL Performed By: #### 3 016-3, LIPNF, 16902-4 #### [facility] CLIA [id number] [address] [place] [address] [place] LDL/HDL RATIO, NF 1.42 mg/dL Normal <2.54 [facility] Comment on above: Order Comment: Speci men Type: BLOOD SPECIMEN Ordering Facility: [facility] Address: [address] [place] [address] Result Comment: Refe rence: 1. National Cholesterol Education Program ATP III Guideline At-A-Glance Quick Desk Reference: National Heart, Lung, and Blood Dawn. National Institutes of Health. 2001: NIH Publication No. 01-3305. 2. An International Atherosclerosis Society position paper: global recommendations for the management of dyslipidemia: executive summary, Atherosclerosis. 2014: 232(2):410-413. Performed By: #### 3 016-3, LIPNF, 59391-3 #### [facility] CLIA [id number] [address] [place] [address] [place] NON HDL CHOL, NF 91 mg/dL Normal <130 [facility] Comment on above: Order Comment: Speci men Type: BLOOD SPECIMEN Ordering Facility: The [facility] Address: [address] [place] [address] Result Comment: <130 mg/dL, Optimal 130-159 mg/dL, Near optimal/above optimal 160-189 mg/dL, Borderline high 190-219 mg/dL, High >219 mg/dL, Very high Secondary prevention optimal non HDL Cholesterol levels are recommended to be <100 mg/dL Performed By: #### 3 016-3, LIPNF, 69628-3 #### [facility] CLIA [id number] [address] [place] [address] [place] T CHOL/HDL RATIO NF 2.72 mg/dL Normal <5.10 [facility] Comment on above: Order Comment: Speci men Type: BLOOD SPECIMEN Ordering Facility: [facility] Address: [address] [place] [address] Performed By: #### 3 016-3, LIPNF, 56305-5 #### [facility] CLIA [id number] [address] [place] [address] [place] TRIGLYCERIDES, NF 82 mg/dL Normal <150 [facility] Comment on above: Order Comment: Speci men Type: BLOOD SPECIMEN Ordering Facility: The [facility] Address: [address] [place] [address] Result Comment: <150 mg/dL, Normal 150-199 mg/dL, Borderline high 200-499 mg/dL, High >499 mg/dL, Very high Performed By: #### 3 016-3, LIPNF, 48182-9 #### [facility] CLIA [id number] [address] [place] [address] [place] VLDL CHOLESTEROL, NF 16 mg/dL Normal <30 [facility] Comment on above: Order Comment: Speci men Type: BLOOD SPECIMEN Ordering Facility: [facility] Address: [address] [place], [place] [address] Performed By: #### 3 016-3, LIPTONY, 91585-3 #### [facility] CLIA [id number] [address] [place] [address] [place] TSH SerPl-aCncon 05-25-2023 TSH Qn 2.150 m[IU]/L Normal 0.270-4.200 [facility] Comment on above: Order Comment: Speci men Type: BLOOD SPECIMEN Ordering Facility: [facility] Address: [address] [place], [place] [address] Result Comment: If t he patient is , TSH reference range varies by gestational period: First Trimester (weeks 9-12): 0.180-2.990 mIU/L Second Trimester: 0.110-3.980 mIU/L Third Trimester: 0.480-4.710 mIU/L Mitch Ham et al. A Practical Approach for the Verifications and Determination of Site- and Trimester-Specific Reference Intervals for Thyroid Function tests in . Thyroid, 2019:29:3:412-420. Nj E, et al. 2017 Guidelines of the [place] Thyroid [employer] for the Diagnosis and Management of Thyroid Disease during and the . Thyroid, 2017:27:3:315-389. Performed By: #### 3 016-3, LIPNF, 06626-8 #### [facility] [facility] CLIA [id number] [address] [place] [address] [place] Absolute lymphocyte countOrd ered By: Dr. Capone on 06-29-2022 Lymphocytes Auto (Unsp spec) [#/Vol] 2.23 10*3/uL 0.83-4.51 Basophil percentageOrdered B y: Dr. Capone on 06-29-2022 Basophils/100 WBC (Bld) 0.7 % 0-1 Chloride [Moles/Vol] 108 mmol/L 98-[address] [facility] Eosinophils/100 WBC (Bld) 3.6 % 0-5 Glucose [Mass/Vol] 98 mg/dL 74-106 [place] [facility] Neutrophils (Bld) [#/Vol] 5.7 10*3/uL 2.0-7.7 Neutrophils/100 WBC (Bld) 62.0 % 47-70 Potassium [Moles/Vol] 3.9 mmol/L 3.5-5.1 [facility] Sodium [Moles/Vol] 140 mmol/L 136-145 [facility] WBC (Bld) [#/Vol] 9.1 10*3/uL 4.4-11.0 [facility] Beta hCG serum qualOrdered B y: Dr. Capone on 06-29-2022 Beta HCG ( test) Ql Negative Blood erythrocytes count (nu mber/volume)Ordered By: Dr. Capone on 06-29-2022 RBC (Bld) [#/Vol] 4.17 10*6/uL 4.2-5.4 [facility] Blood hemoglobin measurement (mass/volume)Ordered By: Dr. Capone on 06-29-2022 Hemoglobin (Bld) [Mass/Vol] 13.1 g/dL 12.0-15.0 Blood lymphocytes/100 leukoc ytesOrdered By: Dr. Capone on 06-29-2022 Lymphocytes/100 WBC (Bld) 24.4 % 19-41 Blood manual differential co mment interpretation (narrative result)Ordered By: Dr. Capone on 06-29-2022 Manual differential comment Ezequiel (Bld) [Interp] SCANNED Comment on above: AUTO DIFF OK Blood monocytes/100 leukocyt esOrdered By: Dr. Capone on 06-29-2022 Monocytes/100 WBC (Bld) 9.0 % 0-10 Blood platelet mean volumeOr dered By: Dr. Capone on 06-29-2022 Platelet mean volume (Bld) [Entitic vol] 10.1 fL 6.2-12.0 COVID-19 virus antigen assay Ordered By: Dr. Capone on 06-29-2022 SARS-CoV-2 (COVID-19) Ag IA.rapid Ql (Resp) Determination of erythrocyte mean corpuscular volume (MCV)Ordered By: Dr. Capone on 06-29-2022 MCV (RBC) [Entitic vol] 91.4 fL 81-99 Hematocrit Auto (Bld) [Volum e fraction]Ordered By: Dr. Capone on 06-29-2022 Hematocrit (Bld) [Volume fraction] 38.1 % 37-47 Laboratory - Chemistry and C hemistry - challengeOrdered By: Dr. Capone on 06-29-2022 CO2 [Moles/Vol] 27.0 mmol/L 21.0-32.0 Urea nitrogen/Creatinine [Mass ratio] 15.8 mg/mg 10-20 Laboratory - Drug toxicology Ordered By: Dr. Capone on 06-29-2022 Amphetamines Ql (U) Negative <1000 ng/mL [facility] Benzodiazepines Ql (U) Negative < 200 ng/mL Cannabinoids Screen Ql (U) Negative < 50 ng/mL Cocaine Ql (U) Negative < 300 ng/mL Opiates Ql (U) Negative < 300 ng/mL Laboratory - Hematology and Cell countsOrdered By: Dr. Capone on 06-29-2022 Erythrocyte distribution width (RBC) [Entitic vol] 40.5 fL 35.1-43.9 Erythrocyte distribution width (RBC) [Ratio] 12.2 % 11.6-14.6 Immature granulocytes/100 WBC (Bld) 0.300 % 0.0-0.9 Comment on above: IG% - Immature Granu locytes (promyelocytes, myelocytes and metamyelocytes) > 1% indicates that a LEFT SHIFT is Present. MCH (RBC) [Entitic mass] 31.4 pg 27.0-32.0 Nucleated RBC/100 WBC (Bld) [Ratio] 0 % 0-5 MCHC Auto (RBC) [Mass/Vol]Or dered By: Dr. Capone on 06-29-2022 MCHC (RBC) [Mass/Vol] 34.4 g/dL 32-36 [facility] No Panel InformationOrdered By: Dr. Capone on 06-29-2022 MDMA (Ecstasy) Screen Negative < 500 ng/mL [facility] Urine Barbiturates Screen Negative < 200 ng/mL Urine Drug Screen Comment Comment on above: CONFIRMATORY TESTING FOR ALL POSITIVE URINE DRUG SCREENRESULTS WILL ONLY BE SENT OUT UPON PHYSICIAN ORDER. VISTA Urine Drug Screen methods provide only preliminaryanalytical test results. A more specific alternate chemicalmethod must be used in order to obtain a confirmedanalytical result. Gas chromatography/mass spectrometery(GC/MS) is the preferred confirmatory method. Clinicalconsideration and professional judgement should be appliedto any drug of abuse test result, particularly whenpreliminary positive results are used. URINE TCA TESTING MUST BE ORDERED SEPARATELY. USE TESTMNEMONIC: [facility] Urine Methadone Screen Negative < 300 ng/mL Estimated Creatinine Clearance Calc 100.04 ml/min Estimated GFR (MDRD) Amer 139 mL/min >60 Comment on above: GFR Calc Estimated GFR (MDRD) Non-Af Amer 115 mL/min >60 Comment on above: Non- GFR Calc Ethyl Alcohol Level < 3.0 mg/dL [facility] Comment on above: The serum:whole bloo d ethanol ratio is approximately 1.14and varies slightly with hematocrit. Medical Alcohol reference interval and critical value innon-tolerant individuals; 50 - 100 Impairment 100 Intoxication 100 - 250 Severe Poisoning 250 - 400 Deep/possible fatal coma Platelets bldOrdered By: Dr. Capone on 06-29-2022 Platelets (Bld) [#/Vol] 219 10*3/uL 150-450 Serum or plasma calcium haley urement (mass/volume)Ordered By: Dr. Capone on 06-29-2022 Calcium [Mass/Vol] 9.1 mg/dL 8.5-10.1 [facility] Serum or plasma creatinine m easurement (mass/volume)Ordered By: Dr. Capoen on 06-29-2022 Creatinine [Mass/Vol] 0.63 mg/dL 0.55-1.02 [facility] Comment on above: The validity of the calculated GFR & GFRAA in patients over 70 years has not been determined. Clinical correlation is essential. Serum or plasma urea nitroge n measurement (mass/volume)Ordered By: Dr. Capone on 06-29-2022 Urea nitrogen [Mass/Vol] 10 mg/dL 7-18 Thin prep Papanicolaou smear with manual screeningOrdered By: Dr. Capone on 06-29-2022 Thin prep Papanicolaou smear with manual screening 5 5-15 Urine phencyclidine (PCP) de tectionOrdered By: Dr. Capone on 06-29-2022 Phencyclidine Ql (U) Negative < 25 ng/mL [facility] ALLIED HEALTHon 05-31-2019 ALLIED HEALTH HNO ID: [id number] Author: Macario Paez (Rt) Service: Radiology Author Type: Assembly Operator Type: Allied Health Filed: 05/31/2019 5:30 PM Note Text: Radiology Service Progress Note PATIENT NAME: Germaine Browning DATE OF SERVICE: May 31, 2019 TIME: 5:30 PM PATIENT IDENTITY VERIFICATION COMPLETED USING TWO (2) IDENTIFIERS: Name and Date of confirmed by patient verbally. PATIENT GENDER DATA: Female. status: Unknown status: N/A PATIENT RELEVANT IMPLANT DATA REVIEWED: Not Applicable RADIOLOGY DEPARTMENT: Ultrasound PERIPHERAL IV DATA: Not applicable SIGNED BY: Charlotte العراقي RDMS May 31, 2019 5:30 PM [facility] US THYROID/PARATHYROIDon US THYROID/PARATHYROID * * *Final Report* * * DATE OF EXAM: May 31 2019 5:28PM SHALONDA 1048 - US THYROID/PARATHYROID / PROCEDURE REASON: E01.0-Thyromegaly * * * * Physician Interpretation * * * * PROCEDURE: US THYROID/PARATHYROID INDICATION: Thyromegaly TECHNIQUE: Multiple sonographic images of the thyroid gland were obtained and stored in a permanent archive. COMPARISON: None. FINDINGS: The right thyroid lobe measures 3.1 x 1.5 x 1.7 cm and the left thyroid lobe 3.4 x 1.4 x 1.3 cm. The isthmus is 2 mm in thickness. No thyroidal or extrathyroidal mass is seen. IMPRESSION: Normal Pediatric Surgeon: BREANNA Transcribe Date/Time: May 31 2019 6:12P Dictated by : ELIDA DEL CASTILLO MD This examination was interpreted and the report reviewed and electronically signed by: ELIDA DEL CASTILLO MD on Jun 01 2019 7:36AM EST [id number] [facility] CR Chest PA/LATon 05-19-2019 CR Chest PA/LAT Patient Name: GERMAINE COELHO Diagnostic Radiology Exam Date/Time 05/19/2019 17:14:16 EST Exam CR Chest PA/LAT Ordering Physician MD RODRIGUEZ SHAWN C. Accession Number [id number] CPT4 Codes 80144 () Reason For Exam CHEST PAIN Report Reason for examination: Chest pain. PA and lateral views of the chest are performed. Comparison is dated 05/03/2019. The trachea is midline. The mediastinal cardiac silhouette are normal. The pulmonary vasculature is normal. No confluent infiltrates, significant pleural effusion or pneumothorax is seen. The osseous structures appear grossly intact. Report Dictated on Final Dictating Physician: MD SANCHEZ LAUREN B Signed Date and Time: 05/19/2019 5:17 pm Signed by: MD SANCHEZ LAUREN B Transcribed Date and Time: 05/19/2019 5:18 Normal [facility] CTA CHEST W WO CONTRASTon Eusebio, [facility] Incoming Radiology Results From [facility] - 05/19/2019 7:57 PM EST Patient Name: GERMAINE BROWNING ---CT--- Exam Date/Time 05/19/2019 19:35:52 EST Exam CTA Chest w/ + w/o Contrast Ordering Physician MD RODRIGUEZ SHAWN C. Accession Number [id number] CPT4 Codes 15106 (), Q9967 (CT ISOVUE 370MG/[id number]&ML& 1) Reason For Exam ELEVATED DDIMER Report Examination: CTA chest Clinical Indication: Chest pain Comparison: None Findings: Serial axial [address] images were obtained through the chest after a 75 mL Isovue-370 bolus tracked intravenous contrast bolus secondary to the chest CTA P.E. protocol. Three-dimensional images were reconstructed concurrently on a dedicated, independent 3-D workstation (Nebula) workstation by the interpreting radiologist to evaluate the pulmonary arteries. Good-adequate quality of the contrast bolus. There is no filling defect within the primary, secondary, or tertiary pulmonary arteries to suggest a pulmonary embolus. The aorta is normal in caliber and demonstrates no evidence of dissection. 7 mm pleural-based right middle lobe nodule (image 115 series 3). No additional pulmonary nodule or mass lesion is identified. No focal consolidation/opacificat ion, pleural effusion, or pulmonary edema identified. There is no evidence of axillary or mediastinal lymphadenopathy. No pericardial effusion is identified. Small-moderate hiatal hernia. Otherwise evaluation of the upper abdomen is grossly unremarkable. Bone windows demonstrate no acute osseous abnormality. Impression: 1.No evidence of pulmonary embolus. 2.7 mm pleural-based right middle lobe nodule. 3.Small-moderate sized hiatal hernia. Updated Fleischner Society Guidelines for Management of Small Pulmonary Nodules Detected on CT (2017) SOLITARY NODULE: LOW RISK PATIENT < 6 mm - No follow-up 6 - 8 mm - 6 - 12 month follow-up, then consider 18 - 24 months > 8 mm - PET/CT, biopsy, or 3 month follow-up SOLITARY NODULE: HIGH RISK PATIENT < 6 mm - Optional 6 - 12 months follow-up (suspicious morphology or upper lobe) 6 - 8 mm - 6 - 12 month follow-up, then 18 - 24 months > 8 mm - PET/CT, biopsy, or 3 month follow-up MULTIPLE NODULES: LOW RISK PATIENT (Use most suspicious) All < 6 mm - No follow-up Any > 6 mm - 3 - 6 month follow-up, then 18 - 24 months MULTIPLE NODULES: HIGH RISK PATIENT (Use most suspicious) All < 6 mm - No follow-up Any > 6 mm - 3 - 6 month follow-up, then 18 - 24 months Report Dictated on --- Final --- Dictating Physician: MD ALFREDO JASON Signed Date and Time: 05/19/2019 7:56 pm Signed by: MD ALFREDO JASON Transcribed Date and Time: 05/19/2019 7:57 [place] Patient Name: GERMAINE COELHO ---CT--- Exam Date/Time 05/19/2019 19:35:52 EST Exam CTA Chest w/ + w/o Contrast Ordering Physician MD RODRIGUEZ SHAWN C. Accession Number [id number] CPT4 Codes 50437 (), Q9967 (CT ISOVUE 370MG/ML&[id number]&ML& 1) Reason For Exam ELEVATED DDIMER Report Examination: CTA chest Clinical Indication: Chest pain Comparison: None Findings: Serial axial [address] images were obtained through the chest after a 75 mL Isovue-370 bolus tracked intravenous contrast bolus secondary to the chest CTA P.E. protocol. Three-dimensional images were reconstructed concurrently on a dedicated, independent 3-D workstation (Nebula) workstation by the interpreting radiologist to evaluate the pulmonary arteries. Good-adequate quality of the contrast bolus. There is no filling defect within the primary, secondary, or tertiary pulmonary arteries to suggest a pulmonary embolus. The aorta is normal in caliber and demonstrates no evidence of dissection. 7 mm pleural-based right middle lobe nodule (image 115 series 3). No additional pulmonary nodule or mass lesion is identified. No focal consolidation/opacificat ion, pleural effusion, or pulmonary edema identified. There is no evidence of axillary or mediastinal lymphadenopathy. No pericardial effusion is identified. Small-moderate hiatal hernia. Otherwise evaluation of the upper abdomen is grossly unremarkable. Bone windows demonstrate no acute osseous abnormality. Impression: 1.No evidence of pulmonary embolus. 2.7 mm pleural-based right middle lobe nodule. 3.Small-moderate sized hiatal hernia. Updated Fleischner Society Guidelines for Management of Small Pulmonary Nodules Detected on CT (2017) SOLITARY NODULE: LOW RISK PATIENT < 6 mm - No follow-up 6 - 8 mm - 6 - 12 month follow-up, then consider 18 - 24 months > 8 mm - PET/CT, biopsy, or 3 month follow-up SOLITARY NODULE: HIGH RISK PATIENT < 6 mm - Optional 6 - 12 months follow-up (suspicious morphology or upper lobe) 6 - 8 mm - 6 - 12 month follow-up, then 18 - 24 months > 8 mm - PET/CT, biopsy, or 3 month follow-up MULTIPLE NODULES: LOW RISK PATIENT (Use most suspicious) All < 6 mm - No follow-up Any > 6 mm - 3 - 6 month follow-up, then 18 - 24 months MULTIPLE NODULES: HIGH RISK PATIENT (Use most suspicious) All < 6 mm - No follow-up Any > 6 mm - 3 - 6 month follow-up, then 18 - 24 months Report Dictated on --- Final --- Dictating Physician: MD ALFREDO JASON Signed Date and Time: 05/19/2019 7:56 pm Signed by: MD ALFREDO JASON Transcribed Date and Time: 05/19/2019 7:57 [place] CTA Chest w/ + w/o Contrasto n 05-19-2019 CTA Chest w/ + w/o Contrast Patient Name: GERMAINE BROWNING CT Exam Date/Time 05/19/2019 19:35:52 EST Exam CTA Chest w/ + w/o Contrast Ordering Physician MD RODRIGUEZ SHAWN C. Accession Number [id number] CPT4 Codes 23238 (), Q9967 (CT ISOVUE 370MG/[id number] dMLand1) Reason For Exam ELEVATED DDIMER Report Examination: CTA chest Clinical Indication: Chest pain Comparison: None Findings: Serial axial [address] images were obtained through the chest after a 75 mL Isovue-370 bolus tracked intravenous contrast bolus secondary to the chest CTA P.E. protocol. Three-dimensional images were reconstructed concurrently on a dedicated, independent 3-D workstation (Nebula) workstation by the interpreting radiologist to evaluate the pulmonary arteries. Good-adequate quality of the contrast bolus. There is no filling defect within the primary, secondary, or tertiary pulmonary arteries to suggest a pulmonary embolus. The aorta is normal in caliber and demonstrates no evidence of dissection. 7 mm pleural-based right middle lobe nodule (image 115 series 3). No additional pulmonary nodule or mass lesion is identified. No focal consolidation/opacificat ion, pleural effusion, or pulmonary edema identified. There is no evidence of axillary or mediastinal lymphadenopathy. No pericardial effusion is identified. Small-moderate hiatal hernia. Otherwise evaluation of the upper abdomen is grossly unremarkable. Bone windows demonstrate no acute osseous abnormality. Impression: 1.\\X09\\No evidence of pulmonary embolus. 2.\\X09\\7 mm pleural-based right middle lobe nodule. 3.\\X09\\Small-moderate sized hiatal hernia. Updated Fleischner Society Guidelines for Management of Small Pulmonary Nodules Detected on CT (2017) SOLITARY NODULE: LOW RISK PATIENT < 6 mm - No follow-up 6 - 8 mm - 6 - 12 month follow-up, then consider 18 - 24 months > 8 mm - PET/CT, biopsy, or 3 month follow-up SOLITARY NODULE: HIGH RISK PATIENT < 6 mm - Optional 6 - 12 months follow-up (suspicious morphology or upper lobe) 6 - 8 mm - 6 - 12 month follow-up, then 18 - 24 months > 8 mm - PET/CT, biopsy, or 3 month follow-up MULTIPLE NODULES: LOW RISK PATIENT (Use most suspicious) All < 6 mm - No follow-up Any > 6 mm - 3 - 6 month follow-up, then 18 - 24 months MULTIPLE NODULES: HIGH RISK PATIENT (Use most suspicious) All < 6 mm - No follow-up Any > 6 mm - 3 - 6 month follow-up, then 18 - 24 months Report Dictated on Final Dictating Physician: MD ALFREDO JASON Signed Date and Time: 05/19/2019 7:56 pm Signed by: MD ALFREDO JASON Transcribed Date and Time: 05/19/2019 7:57 Normal [facility] Comp Metabolic Panelon 05-19 ALP [Catalytic activity/Vol] 117 U/L Normal 38-126 [facility] Comment on above: Performed By: #### P HOS3, MDIFF, HEMDF, QWAL, CMP3, DDI2, MG3, TSH5, TROPN #### [facility] [address] [address] ALT [Catalytic activity/Vol] 55 U/L Normal 13-69 [facility] Comment on above: Performed By: #### P HOS3, MDIFF, HEMDF, QWAL, CMP3, DDI2, MG3, TSH5, TROPN #### [facility] [address] [address] Anion gap [Moles/Vol] 10 Normal [facility] Comment on above: Performed By: #### P HOS3, MDIFF, HEMDF, QWAL, CMP3, DDI2, MG3, TSH5, TROPN #### [facility] [address] [place] [address] AST [Catalytic activity/Vol] 67 U/L High 15-46 [facility] Comment on above: Performed By: #### P HOS3, MDIFF, HEMDF, QWAL, CMP3, DDI2, MG3, TSH5, TROPN #### [facility] [address] [place] [address] Bilirubin [Mass/Vol] 2.4 mg/dL High 0.2-1.3 [facility] Comment on above: Performed By: #### P HOS3, MDIFF, HEMDF, QWAL, CMP3, DDI2, MG3, TSH5, TROPN #### [facility] [address] [place] [address] Calcium [Mass/Vol] 9.3 mg/dL Normal 8.4-10.4 [facility] Comment on above: Performed By: #### P HOS3, MDIFF, HEMDF, QWAL, CMP3, DDI2, MG3, TSH5, TROPN #### [facility] [address] [place] [address] CO2 [Moles/Vol] 27 mmol/L Normal 22-30 [facility] Comment on above: Performed By: #### P HOS3, MDIFF, HEMDF, QWAL, CMP3, DDI2, MG3, TSH5, TROPN #### [facility] [address] [place] [address] Creatinine [Mass/Vol] 0.70 mg/dL Normal 0.52-1.25 [facility] Comment on above: Performed By: #### P HOS3, MDIFF, HEMDF, QWAL, CMP3, DDI2, MG3, TSH5, TROPN #### [facility] [address] [place] [address] GFR/1.73 sq M predicted among blacks MDRD (S/P/Bld) [Vol rate/Area] mL/min/{1.73_m2} Normal >60 [facility] Comment on above: Performed By: #### P HOS3, MDIFF, HEMDF, QWAL, CMP3, DDI2, MG3, TSH5, TROPN #### [facility] [address] [place] [address] GFR/1.73 sq M predicted among non-blacks MDRD (S/P/Bld) [Vol rate/Area] mL/min/{1.73_m2} Normal >60 [facility] Comment on above: Result Comment: Sour ce- MDRD equation with creatinine calibration to IDMS(NKDEP) eGFR not recommended for drug dose adjustment Performed By: #### P HOS3, MDIFF, HEMDF, QWAL, CMP3, DDI2, MG3, TSH5, TROPN #### [facility] [address] [place] [address] Glucose [Mass/Vol] 99 mg/dL Normal 70-100 [facility] Comment on above: Performed By: #### P HOS3, MDIFF, HEMDF, QWAL, CMP3, DDI2, MG3, TSH5, TROPN #### [facility] [address] [place] [address] Protein [Mass/Vol] 8.0 g/dL Normal 6.3-8.2 [facility] Comment on above: Performed By: #### P HOS3, MDIFF, HEMDF, QWAL, CMP3, DDI2, MG3, TSH5, TROPN #### [facility] [address] [place] [address] Urea nitrogen [Mass/Vol] 7 mg/dL Normal 7-20 [facility] Comment on above: Performed By: #### P HOS3, MDIFF, HEMDF, QWAL, CMP3, DDI2, MG3, TSH5, TROPN #### [facility] [address] [place] [address] Potassium [Moles/Vol] 3.6 mmol/L Normal 3.5-5.1 [facility] Comment on above: Performed By: #### P HOS3, MDIFF, HEMDF, QWAL, CMP3, DDI2, MG3, TSH5, TROPN #### [facility] [address] [place] [address] Albumin [Mass/Vol] 4.3 g/dL Normal 3.5-5.0 [facility] Comment on above: Performed By: #### P HOS3, MDIFF, HEMDF, QWAL, CMP3, DDI2, MG3, TSH5, TROPN #### [facility] [address] [place] [address] Chloride [Moles/Vol] 103 mmol/L Normal 98-107 [facility] Comment on above: Performed By: #### P HOS3, MDIFF, HEMDF, QWAL, CMP3, DDI2, MG3, TSH5, TROPN #### [facility] [address] [place] [address] Sodium [Moles/Vol] 140 mmol/L Normal 135-145 [facility] Comment on above: Performed By: #### P HOS3, MDIFF, HEMDF, QWAL, CMP3, DDI2, MG3, TSH5, TROPN #### [facility] [address] [place] [address] Comprehensive Metabolic Pane edvin 05-19-2019 Albumin [Mass/Vol] 4.3 g/dL 3.5 - 5 g/dL [place], [place] ALP [Catalytic activity/Vol] 117 U/L 38 - 126 U/L [place] ALT [Catalytic activity/Vol] 55 U/L 13 - 69 U/L [place] Anion gap [Moles/Vol] 10 mmol/L [place], [place] AST [Catalytic activity/Vol] 67 U/L High 15 - 46 U/L [place] Bilirubin Ql (U) 2.4 mg/dL High 0.2 - 1.3 mg/dL [place] Calcium [Mass/Vol] 9.3 mg/dL 8.4 - 10. 4 mg/dL [place] Chloride [Moles/Vol] 103 mmol/L 98 - 10 7 mmol/L [place] CO2 [Moles/Vol] 27 mmol/L 22 - 30 mmol/L [place] Creatinine [Mass/Vol] 0.7 mg/dL 0.52 - 1.25 mg/dL [place] EGFR IF NonAfrican Monegasque >60.0 >60 mL/min [place] Comment on above: Source- MDRD equatio n with creatinine calibration to IDMS(NKDEP) eGFR not recommended for drug dose adjustment GFR/1.73 sq M predicted among blacks MDRD (S/P/Bld) [Vol rate/Area] mL/min/{1.73_m2} >60 mL/min [facility] [place] Glucose [Mass/Vol] 99 mg/dL 70 - 100 mg/dL [facility], [place] Potassium [Moles/Vol] 3.6 mmol/L 3.5 - 5.1 mmol/L [facility] [place] Protein [Mass/Vol] 8.0 g/dL 6.3 - 8.2 g/dL [place] Sodium [Moles/Vol] 140 mmol/L 135 - 145 mmol/L [place] Urea nitrogen [Mass/Vol] 7 mg/dL 7 - 20 mg/dL [place] D-Dimer, Innovanceon 019 D-Dimer, Innovance 1.55 mg/L High <0.19-0.50 [facility] Comment on above: Result Comment: Inno danielle D-Dimer values of <0.50 mg/L FEU can be used in combination with a pre-test probability model (e.g. Well's) to exclude pulmonary embolism (PE) disease, as well as an aid in the diagnosis of deep vein thrombosis (DVT). Performed By: #### C MP3, HEMDF, MG3, LIPA4 #### [facility] [place] [address] D-Dimer, Quantitativeon 12- D-Dimer, Quant 1.55 mg/L High <0.19 - 0.50 [place] Comment on above: [facility] D-Dimer va lues of <0.50 mg/L FEU can be used in combination with a pre-test probability model (e.g. Well's) to exclude pulmonary embolism (PE) disease, as well as an aid in the diagnosis of deep vein thrombosis (DVT). Interpretation and review of laboratory results Abnormal [place] Test Performed by [facility], [address] , [place], [place] [id number] [place] [address] HCG Qualitative, Serumon hCG Qual Negative m[IU]/mL [place], [place] Comment on above: REF RANGE: Negative .... < 3 Questionable Rpt 48-72 Hr Positive ..... > 10 Test Performed by [facility], [address] , [address] Hemogram (CBC) w/Auto Diffon 05-19-2019 Erythrocyte distribution width (RBC) [Ratio] 13.5 % 11.5 - 14.5 % [place] Hematocrit (Bld) [Volume fraction] 38.1 % 35 - 47 % [place] Hemoglobin (Bld) [Mass/Vol] 13.2 g/dL 11.7 - 16 g/dL [place] MCH (RBC) [Entitic mass] 30.6 pg 26 - 34 pg [place] MCHC (RBC) [Mass/Vol] 34.7 % 32 - 36 % [place] MCV (RBC) [Entitic vol] 88.0 fL 79 - 98 fL [place] Platelet mean volume (Bld) [Entitic vol] 7.8 fL 7.4 - 10.4 fL [place] Platelets (Bld) [#/Vol] 250 10*3/uL 140 - 440 10*3/uL [place] RBC (Bld) [#/Vol] 4.33 10*6/uL 3.8 - 5.2 10*6/uL [place] WBC (Bld) [#/Vol] 12.8 10*3/uL High 3.6 - 10.7 10*3/uL [place] Hemogram w/ Autodiffon 05-19 Erythrocyte distribution width (RBC) [Ratio] 13.5 % Normal 11.5-14.5 [facility] Comment on above: Performed By: #### C MP3, HEMDF, MG3, LIPA4 #### [facility] [address] [place] [address] Hematocrit (Bld) [Volume fraction] 38.1 % Normal 35.0-47.0 [facility] Comment on above: Performed By: #### C MP3, HEMDF, MG3, LIPA4 #### [facility] [address] [place] [address] Hemoglobin (Bld) [Mass/Vol] 13.2 g/dL Normal 11.7-16.0 [facility] Comment on above: Performed By: #### C MP3, HEMDF, MG3, LIPA4 #### [facility] [address] [place] [address] MCH (RBC) [Entitic mass] 30.6 pg Normal 26.0-34.0 [facility] Comment on above: Performed By: #### C MP3, HEMDF, MG3, LIPA4 #### [facility] [address] [place] [address] MCHC (RBC) [Mass/Vol] 34.7 % Normal 32.0-36.0 [facility] Comment on above: Performed By: #### C MP3, HEMDF, MG3, LIPA4 #### [facility] [address] [place] [address] MCV (RBC) [Entitic vol] 88.0 fL Normal 79.0-98.0 [facility] Comment on above: Performed By: #### C MP3, HEMDF, MG3, LIPA4 #### [facility] [address] [place] [address] Platelet mean volume (Bld) [Entitic vol] 7.8 fL Normal 7.4-10.4 [facility] Comment on above: Performed By: #### C MP3, HEMDF, MG3, LIPA4 #### [facility] [address] [place] [address] Platelets (Bld) [#/Vol] 250 10*3/uL Normal 140-440 [facility] Comment on above: Performed By: #### C MP3, HEMDF, MG3, LIPA4 #### [facility] [address] [place] [address] RBC (Bld) [#/Vol] 4.33 10*6/uL Normal 3.80-5.20 [facility] Comment on above: Performed By: #### C MP3, HEMDF, MG3, LIPA4 #### [facility] [address] [address] WBC (Bld) [#/Vol] 12.8 10*3/uL High 3.6-10.7 [facility] Comment on above: Performed By: #### C MP3, HEMDF, MG3, LIPA4 #### [facility] [address] [address] Magnesiumon 05-19-2019 Magnesium [Mass/Vol] 2.4 mg/dL High 1.6-2.3 [facility] Comment on above: Performed By: #### C MP3, HEMDF, MG3, LIPA4 #### [facility] [address] [address] Magnesium [Mass/Vol] 2.4 mg/dL High 1.6 - 2 .3 mg/dL [facility], [place] Manual Diffon 05-19-2019 Abs Baso Cnt 0.0 10*3/uL Normal 0.0-0.2 [facility] Comment on above: Performed By: #### C MP3, HEMDF, MG3, LIPA4 #### [facility] [address] [place] [address] Abs Eosin Cnt 0.1 10*3/uL Normal 0.0-0.5 [facility] Comment on above: Performed By: #### C MP3, HEMDF, MG3, LIPA4 #### [facility] [address] [place] [address] Abs Lymph Cnt 6.7 10*3/uL High 1.1-4.5 [facility] Comment on above: Performed By: #### C MP3, HEMDF, MG3, LIPA4 #### [facility] [address] [place] [address] Abs Monocyte Cnt 1.8 10*3/uL High 0.2-1.1 [facility] Comment on above: Performed By: #### C MP3, HEMDF, MG3, LIPA4 #### [facility] [address] [place] [address] Abs Neutrophile Cnt 4.2 10*3/uL Normal 2.2-8.2 [facility] Comment on above: Performed By: #### C MP3, HEMDF, MG3, LIPA4 #### [facility] [address] [place] [address] Bands 0 % Normal 0-3 [facility] Comment on above: Performed By: #### C MP3, HEMDF, MG3, LIPA4 #### [facility] [address] [place] [address] Basophils 0 % Normal 0-2 [facility] Comment on above: Performed By: #### C MP3, HEMDF, MG3, LIPA4 #### [facility] [address] [place] [address] Cells counted 100 Normal [facility] Comment on above: Performed By: #### C MP3, HEMDF, MG3, LIPA4 #### [facility] [address] [place] [address] Eosinophils 1 % Normal 1-6 [facility] Comment on above: Performed By: #### C MP3, HEMDF, MG3, LIPA4 #### [facility] [address] [place] [address] Lymphocytes 52 % High 20-40 [facility] Comment on above: Performed By: #### C MP3, HEMDF, MG3, LIPA4 #### [facility] [address] [place] [address] Monocytes 14 % High 2-10 [facility] Comment on above: Performed By: #### C MP3, HEMDF, MG3, LIPA4 #### [facility] [address] [place] [address] RBC morphology finding Nom (Bld) Normal Normal [facility] Comment on above: Performed By: #### C MP3, HEMDF, MG3, LIPA4 #### [facility] [address] [place] [address] Seg Neutrophils 33 % Low 40-80 [facility] Comment on above: Performed By: #### C MP3, HEMDF, MG3, LIPA4 #### [facility] [address] [place] [address] Manual Differentialon 2018 Absolute Baso # 0.0 10*3/uL 0 - 0.2 10*3/uL [facility] Absolute Eos # 0.1 10*3/uL 0 - 0.5 10*3/uL [facility] [place], [place] Absolute Lymph # 6.7 10*3/uL High 1.1 - 4.5 10*3/uL [facility] [place] Absolute [place] # 1.8 10*3/uL High 0.2 - 1.1 10*3/uL [facility] [place] Absolute Neut # 4.2 10*3/uL 2.2 - 8.2 10*3/uL [facility] [place] Bands 0 % 0 - 3 % [facility] [place] Basophils 0 % 0 - 2 % [facility] [place] Eosinophils 1 % 1 - 6 % [facility] Lymphocytes 52 % High 20 - 40 % [facility] [place] Monocytes 14 % High 2 - 10 % [facility] [place] RBC morphology finding Nom (Bld) Normal [facility], [place] Seg Neutrophils 33 % Low 40 - 80 % [facility] TOTAL CELLS COUNTED 100 [facility] Otheron 05-19-2019 Interpretation and review of laboratory results Abnormal [facility] [place] Test Performed by [facility], [address] , [address], [place] Interpretation and review of laboratory results Abnormal [facility], [place] Test Performed by [facility], [address] , [place], [place] [id number] [place] [address], [place] Phosphoruson 05-19-2019 Phosphate [Mass/Vol] 3.6 mg/dL Normal 2.5-4.5 [facility] Comment on above: Performed By: #### P HOS3, MDIFF, HEMDF, QWAL, CMP3, DDI2, MG3, TSH5, TROPN #### [facility] [address] [place] [address] Phosphate [Mass/Vol] 3.6 mg/dL 2.5 - 4 .5 mg/dL [place] TSH without Reflexon 019 TSH Qn 2.111 u[IU]/mL 0.465 - 4.68 u[IU]/mL [place] Test Performed by [facility], [address] , [address] Thyroid Stim. Hormoneon Thyroid Stim. Hormone 2.111 u[IU]/mL Normal 0.465-4.68 0 [facility] Comment on above: Performed By: #### C MP3, HEMDF, MG3, LIPA4 #### [facility] [address] [place] [address] Troponin Ion 05-19-2019 Troponin I.cardiac [Mass/Vol] 0.018 ng/mL Normal 0.000-0.034 [facility] Comment on above: Result Comment: . Performed By: #### C MP3, HEMDF, MG3, LIPA4 #### [facility] [address] [place] [address] Troponin x1on 05-19-2019 Troponin I.cardiac [Mass/Vol] 0.018 ng/mL 0 - 0.034 ng/mL [place] Comment on above: . Test Performed by [facility], [address] , [address] XR CHEST STANDARD (2 VW)on 07-20-2018 [facility] Incoming Radiology Results From [facility] - 05/19/2019 5:18 PM EST Patient Name: GERMAINE BROWNING ---Diagnostic Radiology--- Exam Date/Time 05/19/2019 17:14:16 EST Exam CR Chest PA/LAT Ordering Physician MD JENNIFER, BIB [place] Accession Number [id number] CPT4 Codes 65958 () Reason For Exam CHEST PAIN Report Reason for examination: Chest pain. PA and lateral views of the chest are performed. Comparison is dated 05/03/2019. The trachea is midline. The mediastinal cardiac silhouette are normal. The pulmonary vasculature is normal. No confluent infiltrates, significant pleural effusion or pneumothorax is seen. The osseous structures appear grossly intact. Report Dictated on --- Final --- Dictating Physician: MD SANCHEZ LAUREN B Signed Date and Time: 05/19/2019 5:17 pm Signed by: MD SANCHEZ LAUREN B Transcribed Date and Time: 05/19/2019 5:18 [place] Patient Name: GERMAINE COELHO ---Diagnostic Radiology--- Exam Date/Time 05/19/2019 17:14:16 EST Exam CR Chest PA/LAT Ordering Physician MD JENNIFER, [facility]IB [place] Accession Number [id number] CPT4 Codes 60596 () Reason For Exam CHEST PAIN Report Reason for examination: Chest pain. PA and lateral views of the chest are performed. Comparison is dated 05/03/2019. The trachea is midline. The mediastinal cardiac silhouette are normal. The pulmonary vasculature is normal. No confluent infiltrates, significant pleural effusion or pneumothorax is seen. The osseous structures appear grossly intact. Report Dictated on --- Final --- Dictating Physician: MD SANCHEZ LAUREN B Signed Date and Time: 05/19/2019 5:17 pm Signed by: MD SANCHEZ LAUREN B Transcribed Date and Time: 05/19/2019 5:18 [place] hCG Qual Pregon 05-19-2019 hCG Qual Preg Negative Normal [facility] Comment on above: Result Comment: REF RANGE: Negative .... < 3 Questionable Rpt 48-72 Hr Positive ..... > 10 Performed By: #### C MP3, HEMDF, MG3, LIPA4 #### [facility] [address] [address] CR Chest PA/LATon 05-04-2019 CR Chest PA/LAT Patient Name: GERMAINE COELHO Diagnostic Radiology Exam Date/Time 05/03/2019 22:44:40 EST Exam CR Chest PA/LAT Ordering Physician MD REA NISHIT Accession Number [id number] CPT4 Codes 87543 () Reason For Exam cough, fever Report CHEST X-RAY TWO VIEWS CLINICAL INDICATION: cough, fever TECHNIQUE: Frontal and lateral views of the chest. COMPARISON: None FINDINGS: Lungs are clear. No pleural effusion or pneumothorax. No vascular congestion. Heart size normal. IMPRESSION: 1. No acute finding. Report Dictated on Final Dictating Physician: MD MEJIA JOHN R Signed Date and Time: 05/03/2019 10:51 pm Signed by: MD MEJIA JOHN R Transcribed Date and Time: 05/03/2019 10:52 Normal [facility] Comp Metabolic Panelon 05-03 ALP [Catalytic activity/Vol] 96 U/L Normal 38-126 [facility] Comment on above: Performed By: #### C MP3, HEMDF, MG3, LIPA4 #### [facility] [address] [place] [address] ALT [Catalytic activity/Vol] 25 U/L Normal 13-69 [facility] Comment on above: Performed By: #### C MP3, HEMDF, MG3, LIPA4 #### [facility] [address] [place] [address] AST [Catalytic activity/Vol] 23 U/L Normal 15-46 [facility] Comment on above: Performed By: #### C MP3, HEMDF, MG3, LIPA4 #### [facility] [address] [place] [address] Calcium [Mass/Vol] 9.0 mg/dL Normal 8.4-10.4 [facility] Comment on above: Performed By: #### C MP3, HEMDF, MG3, LIPA4 #### [facility] [address] [place] [address] Glucose [Mass/Vol] 105 mg/dL High 70-100 [facility] Comment on above: Performed By: #### C MP3, HEMDF, MG3, LIPA4 #### [facility] [address] [place] [address] Protein [Mass/Vol] 7.5 g/dL Normal 6.3-8.2 [facility] Comment on above: Performed By: #### C MP3, HEMDF, MG3, LIPA4 #### [facility] [address] [place] [address] Urea nitrogen [Mass/Vol] 10 mg/dL Normal 7-20 [facility] Comment on above: Performed By: #### C MP3, HEMDF, MG3, LIPA4 #### [facility] [address] [place] [address] Anion gap [Moles/Vol] 14 Normal [facility] Comment on above: Performed By: #### C MP3, HEMDF, MG3, LIPA4 #### [facility] [address] [place] [address] Bilirubin [Mass/Vol] 1.2 mg/dL Normal 0.2-1.3 [facility] Comment on above: Performed By: #### C MP3, HEMDF, MG3, LIPA4 #### [facility] [address] [place] [address] CO2 [Moles/Vol] 19 mmol/L Low 22-30 [facility] Comment on above: Performed By: #### C MP3, HEMDF, MG3, LIPA4 #### [facility] [address] [place] [address] Creatinine [Mass/Vol] 0.75 mg/dL Normal 0.52-1.25 [facility] Comment on above: Performed By: #### C MP3, HEMDF, MG3, LIPA4 #### [facility] [address] [place] [address] GFR/1.73 sq M predicted among blacks MDRD (S/P/Bld) [Vol rate/Area] mL/min/{1.73_m2} Normal >60 [facility] Comment on above: Performed By: #### C MP3, HEMDF, MG3, LIPA4 #### [facility] [address] [place] [address] GFR/1.73 sq M predicted among non-blacks MDRD (S/P/Bld) [Vol rate/Area] mL/min/{1.73_m2} Normal >60 [facility] Comment on above: Result Comment: Sour ce- MDRD equation with creatinine calibration to IDMS(NKDEP) eGFR not recommended for drug dose adjustment Performed By: #### C MP3, HEMDF, MG3, LIPA4 #### [facility] [address] [place] [address] Albumin [Mass/Vol] 4.4 g/dL Normal 3.5-5.0 [facility] Comment on above: Performed By: #### C MP3, HEMDF, MG3, LIPA4 #### [facility] [address] [place] [address] Chloride [Moles/Vol] 104 mmol/L Normal 98-107 [facility] Comment on above: Performed By: #### C MP3, HEMDF, MG3, LIPA4 #### [facility] [address] [place] [address] Potassium [Moles/Vol] 3.8 mmol/L Normal 3.5-5.1 [facility] Comment on above: Performed By: #### C MP3, HEMDF, MG3, LIPA4 #### [facility] [address] [place] [address] Sodium [Moles/Vol] 137 mmol/L Normal 135-145 [facility] Comment on above: Performed By: #### C MP3, HEMDF, MG3, LIPA4 #### [facility] [address] [place] [address] Complete Urinalysison 2018 Bacteria LM.HPF (Urine sed) [#/Area] Few (1-5) Normal Negative [facility] Comment on above: Performed By: #### C UA2, HCGUR #### [facility] [address] [place] [address] Mucous Threads Few Normal Negative [facility] Comment on above: Performed By: #### C UA2, HCGUR #### [facility] [address] [place] [address] RBC LM.HPF (Urine sed) [#/Area] 6 - 10 Normal 0-2 [facility] Comment on above: Performed By: #### C UA2, HCGUR #### [facility] [address] [place] [address] Squamous Epithelial 6 - 10 Normal 3-5 [facility] Comment on above: Performed By: #### C UA2, HCGUR #### [facility] [address] [place] [address] VOLUME, URINE 12 ml Normal [facility] Comment on above: Performed By: #### C UA2, HCGUR #### [facility] [address] [place] [address] WBC LM.HPF (Urine sed) [#/Area] 0 - 2 Normal 0-5 [facility] Comment on above: Performed By: #### C UA2, HCGUR #### [facility] [address] [place] [address] Appearance (U) Clear Normal Clear [facility] Comment on above: Performed By: #### C UA2, HCGUR #### [facility] [address] [place] [address] Bilirubin,Urine Negative Normal Negative [facility] Comment on above: Performed By: #### C UA2, HCGUR #### [facility] [address] [place] [address] Color (U) YELLOW Normal Lt. Yellow [facility] Comment on above: Performed By: #### C UA2, HCGUR #### [facility] [address] [place] [address] Glucose Ql (U) Normal Normal Normal (<70) [facility] Comment on above: Performed By: #### C UA2, HCGUR #### [facility] [address] [place] [address] Ketone,Urine 10 mg/dL Normal Negative [facility] Comment on above: Performed By: #### C UA2, HCGUR #### [facility] [address] [place] [address] Leukocytes,Urine 75 Katie/uL Normal Negative [facility] Comment on above: Performed By: #### C UA2, HCGUR #### [facility] [address] [place] [address] Nitrites,Urine Negative Normal Negative [facility] Comment on above: Performed By: #### C UA2, HCGUR #### [facility] [address] [place] [address] Occult Blood,Urine 0.06 mg/dL Normal Negative [facility] Comment on above: Performed By: #### C UA2, HCGUR #### [facility] [address] [place] [address] pH (U) 6.5 Normal 5.0-8.0 [facility] Comment on above: Performed By: #### C UA2, HCGUR #### [facility] [address] [place] [address] Protein (U) [Mass/Vol] 20 mg/dL Normal Negative [facility] Comment on above: Performed By: #### C UA2, HCGUR #### [facility] [address] [place] [address] Specific [place],Urine 1.030 Normal 1.005-1.030 [facility] Comment on above: Performed By: #### C UA2, HCGUR #### [facility] [address] [place] [address] Urobilinogen,Urine Normal Normal Normal (0-1) [facility] Comment on above: Performed By: #### C UA2, HCGUR #### [facility] [address] [place] [address] Comprehensive Metabolic Pane edvin 05-03-2019 Albumin [Mass/Vol] 4.4 g/dL 3.5 - 5 g/dL [place], [place] ALP [Catalytic activity/Vol] 96 U/L 38 - 126 U/L [place] ALT [Catalytic activity/Vol] 25 U/L 13 - 69 U/L [place] Anion gap [Moles/Vol] 14 mmol/L [place], [place] AST [Catalytic activity/Vol] 23 U/L 15 - 46 U/L [place] Bilirubin Ql (U) 1.2 mg/dL 0.2 - 1.3 mg/dL [place] Calcium [Mass/Vol] 9.0 mg/dL 8.4 - 10. 4 mg/dL [place] Chloride [Moles/Vol] 104 mmol/L 98 - 10 7 mmol/L [place] CO2 [Moles/Vol] 19 mmol/L Low 22 - 30 mmol/L [place] Creatinine [Mass/Vol] 0.75 mg/dL 0.52 - 1.25 mg/dL [place] EGFR IF NonAfrican [place]onegasque >60.0 >60 mL/min [place] Comment on above: Source- MDRD equatio n with creatinine calibration to IDMS(NKDEP) eGFR not recommended for drug dose adjustment GFR/1.73 sq M predicted among blacks MDRD (S/P/Bld) [Vol rate/Area] mL/min/{1.73_m2} >60 mL/min [place] Glucose [Mass/Vol] 105 mg/dL High 70 - 100 mg/dL [place] Interpretation and review of laboratory results Abnormal [place] Potassium [Moles/Vol] 3.8 mmol/L 3.5 - 5.1 mmol/L [place] Protein [Mass/Vol] 7.5 g/dL 6.3 - 8.2 g/dL [place] Sodium [Moles/Vol] 137 mmol/L 135 - 145 mmol/L [place] Urea nitrogen [Mass/Vol] 10 mg/dL 7 - 20 mg/dL [place] HCG,Urine Qualon 05-03-2019 Beta HCG ( test) Ql (U) Negative Normal Negative [facility] Comment on above: Result Comment: Preg gulshan is the most common reason for HCG in urine, although choriocarcinoma, hydatidiform mole, and certain nontropho- blastic malignancies also result in detectable urinary HCG levels. Sensitivity = 20mIU/mL. Performed By: #### C UA2, HCGUR #### [facility] [address] [place] [address] [facility] Urine Qual Pregon 2018 Beta HCG ( test) Ql (U) Negative Negative [place], [place] Comment on above: is the mos t common reason for HCG in urine, although choriocarcinoma, hydatidiform mole, and certain nontropho- blastic malignancies also result in detectable urinary HCG levels. Sensitivity = 20mIU/mL. Test Performed by [facility], [address] , [place], [place] [id number] [place] [address] Hemogram (CBC) w/Auto Diffon 05-03-2019 Absolute Baso # 0.0 10*3/uL 0 - 0.2 10*3/uL [place] Absolute Neut # 3.8 10*3/uL 1.8 - 7 10*3/uL [place] Basophils/100 WBC (Bld) 0.6 % 0 - 2 % [place] Eosinophils (Bld) [#/Vol] 0.1 10*3/uL 0 - 0.5 10*3/uL [place] Eosinophils/100 WBC (Bld) 1.4 % 1 - 6 % [place] Erythrocyte distribution width (RBC) [Ratio] 12.6 % 11.5 - 14.5 % [place] Granulocytes/100 WBC (Bld) 68.5 % 40 - 80 % [place] Hematocrit (Bld) [Volume fraction] 40.0 % 35 - 47 % [place] Hemoglobin (Bld) [Mass/Vol] 14.1 g/dL 11.7 - 16 g/dL [place] Interpretation and review of laboratory results Abnormal [place] Lymphocytes (Bld) [#/Vol] 0.8 10*3/uL Low 1 - 4.3 10*3/uL [place] Lymphocytes/100 WBC (Bld) 14.6 % Low 20 - 40 % [place] MCH (RBC) [Entitic mass] 31.1 pg 26 - 34 pg [place] MCHC (RBC) [Mass/Vol] 35.3 % 32 - 36 % [place] MCV (RBC) [Entitic vol] 88.1 fL 79 - 98 fL [place] Monocytes (Bld) [#/Vol] 0.8 10*3/uL 0 - 0.8 10*3/uL [place] Monocytes/100 WBC (Bld) 14.9 % High 2 - 10 % [place] Platelet mean volume (Bld) [Entitic vol] 7.2 fL Low 7.4 - 10.4 fL [place] Platelets (Bld) [#/Vol] 250 10*3/uL 140 - 440 10*3/uL [place] RBC (Bld) [#/Vol] 4.54 10*6/uL 3.8 - 5.2 10*6/uL [place] WBC (Bld) [#/Vol] 5.6 10*3/uL 3.6 - 10.7 10*3/uL [place] Test Performed by [facility], [address] [facility] Hemogram w/ Autodiffon 05-03 Abs Baso Cnt 0.0 10*3/uL Normal 0.0-0.2 [facility] Comment on above: Performed By: #### C MP3, HEMDF, MG3, LIPA4 #### [facility] [address] [facility] [place] [address] Abs Neutrophile Cnt 3.8 10*3/uL Normal 1.8-7.0 [facility] Comment on above: Performed By: #### C MP3, HEMDF, MG3, LIPA4 #### [facility] [address] [facility] [place] [address] Basophils/100 WBC (Bld) 0.6 % Normal 0.0-2.0 [facility] Comment on above: Performed By: #### C MP3, HEMDF, MG3, LIPA4 #### [facility] [address] [facility] [place] [address] Eosinophils (Bld) [#/Vol] 0.1 10*3/uL Normal 0.0-0.5 [facility] Comment on above: Performed By: #### C MP3, HEMDF, MG3, LIPA4 #### [address] [place] [address] Eosinophils/100 WBC (Bld) 1.4 % Normal 1.0-6.0 [facility] Comment on above: Performed By: #### C MP3, HEMDF, MG3, LIPA4 #### [facility] [address] [place] [address] Erythrocyte distribution width (RBC) [Ratio] 12.6 % Normal 11.5-14.5 [facility] Comment on above: Performed By: #### C MP3, HEMDF, MG3, LIPA4 #### [address] [place] [address] Granulocytes/100 WBC (Bld) 68.5 % Normal 40.0-80.0 [facility] Comment on above: Performed By: #### C MP3, HEMDF, MG3, LIPA4 #### [address] [place] [address] Hematocrit (Bld) [Volume fraction] 40.0 % Normal 35.0-47.0 [facility] Comment on above: Performed By: #### C MP3, HEMDF, MG3, LIPA4 #### [address] [place] [address] Hemoglobin (Bld) [Mass/Vol] 14.1 g/dL Normal 11.7-16.0 [facility] Comment on above: Performed By: #### C MP3, HEMDF, MG3, LIPA4 #### [address] [place] [address] Lymphocytes (Bld) [#/Vol] 0.8 10*3/uL Low 1.0-4.3 [facility] Comment on above: Performed By: #### C MP3, HEMDF, MG3, LIPA4 #### [address] [place] [address] Lymphocytes/100 WBC (Bld) 14.6 % Low 20.0-40.0 [facility] Comment on above: Performed By: #### C MP3, HEMDF, MG3, LIPA4 #### [address] [place] [address] MCH (RBC) [Entitic mass] 31.1 pg Normal 26.0-34.0 [facility] Comment on above: Performed By: #### C MP3, HEMDF, MG3, LIPA4 #### [facility] [address] [place] [address] MCHC (RBC) [Mass/Vol] 35.3 % Normal 32.0-36.0 [facility] Comment on above: Performed By: #### C MP3, HEMDF, MG3, LIPA4 #### [facility] [address] [place] [address] MCV (RBC) [Entitic vol] 88.1 fL Normal 79.0-98.0 [facility] Comment on above: Performed By: #### C MP3, HEMDF, MG3, LIPA4 #### [address] [place] [address] Monocytes (Bld) [#/Vol] 0.8 10*3/uL Normal 0.0-0.8 [facility] Comment on above: Performed By: #### C MP3, HEMDF, MG3, LIPA4 #### [facility] [address] [place] [address] Monocytes/100 WBC (Bld) 14.9 % High 2.0-10.0 [facility] Comment on above: Performed By: #### C MP3, HEMDF, MG3, LIPA4 #### [facility] [address] [place] [address] Platelet mean volume (Bld) [Entitic vol] 7.2 fL Low 7.4-10.4 [facility] Comment on above: Performed By: #### C MP3, HEMDF, MG3, LIPA4 #### [facility] [address] [place] [address] Platelets (Bld) [#/Vol] 250 10*3/uL Normal 140-440 [facility] Comment on above: Performed By: #### C MP3, HEMDF, MG3, LIPA4 #### [facility] [address] [place] [address] RBC (Bld) [#/Vol] 4.54 10*6/uL Normal 3.80-5.20 [facility] Comment on above: Performed By: #### C MP3, HEMDF, MG3, LIPA4 #### [facility] [address] [address] WBC (Bld) [#/Vol] 5.6 10*3/uL Normal 3.6-10.7 [facility] Comment on above: Performed By: #### C MP3, HEMDF, MG3, LIPA4 #### [facility] [address] [place] [address] Lipaseon 05-03-2019 Lipase [Catalytic activity/Vol] 47 U/L Normal 23-300 [facility] Comment on above: Performed By: #### C MP3, HEMDF, MG3, LIPA4 #### [facility] [address] [place] [address] Lipase [Catalytic activity/Vol] 47 U/L 23 - 300 U/L [place] Magnesiumon 05-03-2019 Magnesium [Mass/Vol] 1.9 mg/dL Normal 1.6-2.3 [facility] Comment on above: Performed By: #### C MP3, HEMDF, MG3, LIPA4 #### [facility] [address] [address] Magnesium [Mass/Vol] 1.9 mg/dL 1.6 - 2 .3 mg/dL [place] Otheron 05-03-2019 Test Performed by [facility], [address] , [place], [place] [address] [place] Urinalysison 05-03-2019 Appearance (U) Clear Clear NA [place] Bacteria, UA Few (1-5) Negative /[HPF] [place] Bilirubin Urine Negative Negative mg/dL [place] Color (U) YELLOW Lt. Yellow NA [place] Glucose, Ur Normal Normal (<70) mg/dL [place] Ketones Ql (U) 10 mg/dL Negative [place] LEUKOCYTES, UA 75 Negative Katie/uL [place] Mucous Threads Few Negative /[LPF] [place] Nitrite, Urine Negative Negative NA [place] Occult Blood,Urine 0.06 mg/dL Negative [place] pH (U) 6.5 [pH] [place] Protein (U) [Mass/Vol] 20 mg/dL Negative [place] RBC (U) [#/Vol] 6-10 0 - 2 /[HPF] [place] Specific Orient, Urine 1.030 [place] Squam Epithel, UA 6-10 3 - 5 /[HPF] [place] Urobilinogen, Urine Normal Normal ( 0-1) mg/dL [place] Volume 12 ml [place] WBC, UA 0-2 0 - 5 /[HPF] [place] Test Performed by [facility], [address] [place] [address] XR CHEST STANDARD (2 VW)on 07-03-2018 Patient Name: GERMAINE COELHO ---Diagnostic Radiology--- Exam Date/Time 05/03/2019 22:44:40 EST Exam CR Chest PA/LAT Ordering Physician MD ÁLVARO, [facility] Accession Number [id number] CPT4 Codes 61698 () Reason For Exam cough, fever Report CHEST X-RAY TWO VIEWS CLINICAL INDICATION: cough, fever TECHNIQUE: Frontal and lateral views of the chest. COMPARISON: None FINDINGS: Lungs are clear. No pleural effusion or pneumothorax. No vascular congestion. Heart size normal. IMPRESSION: 1. No acute finding. Report Dictated on --- Final --- Dictating Physician: MD MEJIA JOHN R Signed Date and Time: 05/03/2019 10:51 pm Signed by: MD MEJIA JOHN R Transcribed Date and Time: 05/03/2019 10:52 [place] Euseb[facility], [facility] Incoming [facility]iology Results From [facility] - 05/03/2019 10:53 PM EST Patient Name: GERMAINE BROWNING ---Diagnostic Radiology--- Exam Date/Time 05/03/2019 22:44:40 EST Exam CR Chest PA/LAT Ordering Physician MD REA NISHIT Accession Number [id number] CPT4 Codes 84554 () Reason For Exam cough, fever Report CHEST X-RAY TWO VIEWS CLINICAL INDICATION: cough, fever TECHNIQUE: Frontal and lateral views of the chest. COMPARISON: None FINDINGS: Lungs are clear. No pleural effusion or pneumothorax. No vascular congestion. Heart size normal. IMPRESSION: 1. No acute finding. Report Dictated on --- Final --- Dictating Physician: MD MEJIA JOHN R Signed Date and Time: 05/03/2019 10:51 pm Signed by: MD MEJIA JOHN R Transcribed Date and Time: 05/03/2019 10:52 [place] Vital Signs Date Time Vital Sign Value Performing Clinician Facility 08-09-2024 16:53-0500 Diastolic Blood Pressure Non-Invasive 108 mm[Hg] ENRIQUE GARCIA MD [facility] 08-09-2024 16:53-0500 Heart rate 94 /min ENRIQUE GARCIA MD [facility] 08-09-2024 16:53-0500 Reason For Taking VItal Signs ENRIQUE GARCIA MD [facility] 08-09-2024 16:53-0500 Respiratory rate 18 /min ENRIQUE GARCIA MD [facility] 08-09-2024 16:53-0500 Systolic Blood Pressure Non-Invasive 157 mm[Hg] ENRIQUE GARCIA MD [facility] 08-09-2024 15:39-0500 Diastolic Blood Pressure Non-Invasive 97 mm[Hg] ENRIQUE GARCIA MD [facility] 08-09-2024 15:39-0500 Heart rate 81 /min ENRIQUE GARCIA MD [facility] 08-09-2024 15:39-0500 Respiratory rate 18 /min ENRIQUE GARCIA MD [facility] 08-09-2024 15:39-0500 Systolic Blood Pressure Non-Invasive 134 mm[Hg] ENRIQUE GARCIA MD [facility] 08-09-2024 15:07-0500 Diastolic Blood Pressure Non-Invasive 104 mm[Hg] ENRIQUE GARCIA MD [facility] 08-09-2024 15:07-0500 Heart rate 86 /min ENRIQUE GARCIA MD [facility] 08-09-2024 15:07-0500 Respiratory rate 18 /min ENRIQUE GARCIA MD [facility] 08-09-2024 15:07-0500 Systolic Blood Pressure Non-Invasive 158 mm[Hg] ENRIQUE GARCIA MD [facility] 08-09-2024 13:09-0500 Blood Pressure Cuff Size ENRIQUE GARCIA MD [facility] 08-09-2024 13:09-0500 Blood Pressure Location ENRIQUE GARCIA MD [facility] 08-09-2024 13:09-0500 Blood Pressure Method ENRIQUE GARCIA MD [facility] 08-09-2024 13:09-0500 Body temperature 98.24 [degF] ENRIQUE GARCIA MD [facility] 08-09-2024 13:09-0500 Body weight 60 kg ENRIQUE GARCIA MD [facility] 03-31-2024 01:32-0400 Diastolic Blood Pressure Non-Invasive 61 mm[Hg] MOLLY AQUINO MD [facility] 03-31-2024 01:32-0400 Heart rate 80 /min MOLLY AQUINO MD [facility] 03-31-2024 01:32-0400 Reason For Taking VItal Signs MOLLY AQUINO MD [facility] 03-31-2024 01:32-0400 Respiratory rate 20 /min MOLLY AQUINO MD [facility] 03-31-2024 01:32-0400 Systolic Blood Pressure Non-Invasive 109 mm[Hg] MOLLY AQUINO MD [address] [place] [address] 03-31-2024 01:07-0400 Diastolic Blood Pressure Non-Invasive 51 mm[Hg] MOLLY AQUINO MD [address] 03-31-2024 01:07-0400 Heart rate 64 /min MOLLY AQUINO MD [address] 03-31-2024 01:07-0400 Systolic Blood Pressure Non-Invasive 98 mm[Hg] MOLLY AQUINO MD [facility] 03-31-2024 00:57-0400 Diastolic Blood Pressure Non-Invasive 52 mm[Hg] MOLLY AQUINO MD [address] 03-31-2024 00:57-0400 Systolic Blood Pressure Non-Invasive 98 mm[Hg] MOLLY AQUINO MD [address] 03-30-2024 23:23-0400 Heart rate 62 /min MOLLY AQUINO MD [facility] 03-30-2024 23:01-0400 Blood Pressure Method MOLLY AQUINO MD [address] [place] [address] 03-30-2024 22:55-0400 Heart rate 65 /min MOLLY AQUINO MD [facility] 03-30-2024 22:55-0400 Respiratory rate 20 /min MOLLY AQUINO MD [facility] 03-30-2024 22:39-0400 Heart rate 55 /min MOLLY AQUINO MD [facility] 03-30-2024 22:39-0400 Respiratory rate 22 /min MOLLY AQUINO MD [facility] 03-30-2024 21:45-0400 Body temperature 98.06 [degF] MOLLY AQUINO MD [facility] 03-30-2024 21:45-0400 Body weight 42.1 kg MOLLY AQUINO MD [facility] 03-30-2024 21:45-0400 Heart rate 76 /min MOLLY AQUINO MD [facility] 01-24-2024 19:50-0400 Body mass index (BMI) [Ratio] 19.4 kg/m2 [facility] Work Phone: [facility] 01-24-2024 19:50-0400 Body temperature 98.71 [degF] [facility] Work Phone: [facility] 01-24-2024 19:50-0400 Body weight 48.1 kg [facility] Work Phone: [facility] 01-24-2024 19:50-0400 Diastolic blood pressure 72 mm[Hg] [facility] Work Phone: [facility] 01-24-2024 19:50-0400 Heart rate 112 /min [facility] Work Phone: [facility] 01-24-2024 19:50-0400 Respiratory rate 16 /min [facility] Work Phone: [facility] 01-24-2024 19:50-0400 SaO2% (BldA) [Mass fraction] 99 % [facility] Work Phone: [facility] 01-24-2024 19:50-0400 Systolic blood pressure 120 mm[Hg] [facility] Work Phone: [facility] 01-19-2024 10:08-0400 Body mass index (BMI) [Ratio] 18.15 kg/m2 Alicia Marrero APRN.CNP Work Phone: [facility] 01-19-2024 10:08-0400 Body temperature 99.1 [degF] Alicia Marrero APRN.[employer]ATION[employer] Work Phone: [facility] 01-19-2024 10:08-0400 Body weight 45 kg Aliica Marrero APRN.[employer] Work Phone: [facility] 01-19-2024 10:08-0400 Diastolic blood pressure 95 mm[Hg] Alicia Marrero APRN.[employer] Work Phone: [facility] 01-19-2024 10:08-0400 Heart rate 97 /min Alicia Marrero APRN.[employer] Work Phone: [facility] 01-19-2024 10:08-0400 Respiratory rate 22 /min Alicia Marrero APRN.[employer] Work Phone: [facility] 01-19-2024 10:08-0400 SaO2% (BldA) [Mass fraction] 99 % Alicia Marrero APRN.[employer] Work Phone: [facility] 01-19-2024 10:08-0400 Systolic blood pressure 138 mm[Hg] Alicia Marrero APRN.[employer]ATION[employer] Work Phone: [facility] 06-23-2023 21:33-0500 Diastolic blood pressure 112 mm[Hg] 06-23-2023 21:33-0500 Heart rate 96 /min [facility] 06-23-2023 21:33-0500 Respiratory rate 16 /min [facility] 06-23-2023 21:33-0500 SaO2% (BldA) [Mass fraction] 99 % 06-23-2023 21:33-0500 Systolic blood pressure 116 mm[Hg] 06-23-2023 19:47-0500 Body height 154.94 cm [facility] 06-23-2023 19:47-0500 Body mass index (BMI) [Ratio] 20.8 kg/m2 06-23-2023 19:47-0500 Body temperature 97 [degF] [facility] 06-23-2023 19:47-0500 Body weight 50.1 kg [facility] 08-02-2022 11:13-0500 Body temperature 98.2 [degF] Claire Older TREE SURGEON.[employer] Work Phone: [facility] 08-02-2022 11:13-0500 Body weight 45.36 kg Claire Older TREE SURGEON.[employer] Work Phone: [facility] 08-02-2022 11:13-0500 Diastolic blood pressure 86 mm[Hg] Claire Older TREE SURGEON.[employer] Work Phone: [facility] 08-02-2022 11:13-0500 Heart rate 92 /min Claire Older TREE SURGEON.[employer] Work Phone: [facility] 08-02-2022 11:13-0500 Respiratory rate 14 /min Claire Older TREE SURGEON.[employer] Work Phone: [facility] 08-02-2022 11:13-0500 Systolic blood pressure 127 mm[Hg] Claire Older TREE SURGEON.[employer] Work Phone: [facility] 07-27-2022 13:44-0500 Body temperature 97.59 [degF] [facility] TREE SURGEON.[employer]ATION[employer]ER [employer] Work Phone: [facility] 07-27-2022 13:44-0500 Body weight 46.27 kg [facility] TREE SURGEON.[employer] Work Phone: [facility] 07-27-2022 13:44-0500 Diastolic blood pressure 60 mm[Hg] [facility] TREE SURGEON.[employer] Work Phone: [facility] 07-27-2022 13:44-0500 Heart rate 92 /min [facility] TREE SURGEON.[employer] Work Phone: [facility] 07-27-2022 13:44-0500 Respiratory rate 16 /min [facility] TREE SURGEON.[employer] Work Phone: [facility] 07-27-2022 13:44-0500 SaO2% (BldA) [Mass fraction] 98 % Andrey Banda TREE SURGEON.[employer] Work Phone: [facility] 07-27-2022 13:44-0500 Systolic blood pressure 102 mm[Hg] Andrey Banda APRN.[employer]ATION[employer] Work Phone: [facility] 06-30-2022 11:58-0500 Respiratory rate 16 /min [facility] 06-30-2022 09:30-0500 Body temperature 98.6 [degF] [facility] 06-30-2022 09:30-0500 Diastolic blood pressure 88 mm[Hg] 06-30-2022 09:30-0500 Heart rate 94 /min [facility] 06-30-2022 09:30-0500 SaO2% (BldA) [Mass fraction] 97 % 06-30-2022 09:30-0500 Systolic blood pressure 129 mm[Hg] 06-29-2022 19:54-0500 Body height 132.08 cm [facility] 06-29-2022 19:54-0500 Body mass index (BMI) [Ratio] 28.5 kg/m2 06-29-2022 19:54-0500 Body weight 49.89 kg [facility] 05-23-2019 13:26-0500 Respiratory rate 14 /min Michael Villegas MD Work Phone: [facility] Work Phone: 05-23-2019 13:15-0500 Diastolic blood pressure 85 mm[Hg] Michael Villegas MD Work Phone: [facility] Work Phone: 05-23-2019 13:15-0500 Heart rate 102 /min Michael Villegas MD Work Phone: [facility] Work Phone: 05-23-2019 13:15-0500 SaO2% (BldA) [Mass fraction] 99 % Michael Villegas MD Work Phone: [facility] Work Phone: 05-23-2019 13:15-0500 Systolic blood pressure 131 mm[Hg] Michael Villegas MD Work Phone: [facility] Work Phone: 05-23-2019 12:10-0500 Body mass index (BMI) [Ratio] 24.51 kg/m2 Michael Villegas MD Work Phone: [facility] Work Phone: 05-23-2019 12:10-0500 Body temperature 97.81 [degF] Michael Villegas MD Work Phone: [facility] Work Phone: 05-23-2019 12:10-0500 Body weight 60.78 kg Michael Villegas MD Work Phone: [facility] Work Phone: 05-19-2019 20:11-0500 BP Diastolic 84 mm[Hg] [place] 05-19-2019 20:11-0500 BP Systolic 127 mm[Hg] [place] 05-19-2019 20:11-0500 Pulse (Heart Rate) 94 /min [place] 05-19-2019 20:11-0500 Respiratory Rate 20 /min [place] 05-19-2019 17:46-0500 Pulse Oximetry 97 % [place] 05-19-2019 16:40-0500 BMI (Body Mass Index) 24.87 kg/m2 [place] 05-19-2019 16:40-0500 Body Temperature 97.59 [degF] [facility], [place] 05-19-2019 16:40-0500 Body weight 61.69 kg [place] 05-19-2019 16:40-0500 Height 157.5 cm [place] 05-04-2019 20:57-0500 Body Temperature 101.61 [degF] Vikram [facility], [place] 05-04-2019 20:57-0500 Pulse (Heart Rate) 125 /min [facility] [place] 05-04-2019 20:57-0500 Pulse Oximetry 96 % [facility] [place] 05-04-2019 20:57-0500 Respiratory Rate 18 /min [facility] [place] 05-04-2019 20:34-0500 BP Diastolic 92 mm[Hg] Vikram [facility] , [place] 05-04-2019 20:34-0500 BP Systolic 146 mm[Hg] Vikram [facility] , [place] 05-03-2019 23:35-0500 BP Diastolic 72 mm[Hg] [place], [place] 05-03-2019 23:35-0500 BP Systolic 124 mm[Hg] [place] 05-03-2019 23:35-0500 Pulse (Heart Rate) 108 /min [place], [place] 05-03-2019 21:10-0500 Body Temperature 99.61 [degF] [place] 05-03-2019 21:10-0500 Pulse Oximetry 99 % [place] 05-03-2019 21:10-0500 Respiratory Rate 18 /min [place] 05-03-2019 20:07-0500 Body weight 64.4 kg [place] Encounters Encounter Date Encounter Type Care Provider Facility Start: 10-11-2024 End: 10-11-[address] SHAQ INGRAM MD Facility:A Start: 08-09-2024 End: 08-09-2024 Emergency department patient visit ENRIQUE GARCIA MD [facility] Start: 05-01-2024 ambulatory Andrey Gill Facility :[facility] Start: 03-30-2024 End: 03-31-2024 Emergency department patient visit MOLLY AQUINO MD [facility] Start: 01-24-2024 End: 01-24-2024 ambulatory [facility] Facility:[facility] Start: 01-24-2024 End: 01-24-2024 Patient encounter procedure [facility] Work Phone: [facility] Comment on above: Hand pain, left (Violet tamela Dx) Start: 01-24-2024 End: 01-24-2024 Emergency department patient visit Ed Physician Provider Facility: Start: 01-19-2024 End: 01-19-2024 ambulatory [facility] Facility:[facility] Start: 01-19-2024 End: 01-19-2024 Patient encounter procedure Alicia Marrero APRN.[employer] Work Phone: [facility] Comment on above: Itching (Primary Dx) Start: 06-23-2023 End: 06-23-2023 Emergency department patient visit -Emergency Department Work Phone: Start: 05-25-2023 End: 05-25-2023 ambulatory [facility] Facility:[facility] Start: 08-02-2022 End: 08-02-2022 Patient encounter procedure Claire Crain APRN.[employer] Work Phone: [facility] Comment on above: Skin abnormality (Pr imary Dx); Facial swelling; Dental infection Start: 07-27-2022 End: 07-27-2022 Office outpatient visit 25 minutes Andrey Banda APRN.[employer] Work Phone: [facility] Comment on above: Dental infection (Pr imary Dx) Start: 06-29-2022 End: 06-30-2022 Emergency department patient visit -Emergency Department Start: 05-23-2019 End: 05-23-2019 Emergency department patient visit Michael Villegas MD Work Phone: [facility] Comment on above: Chest pain, unspecif ied type (Primary Dx) Start: 05-19-2019 End: 05-19-2019 Emergency department patient visit Bib Rodriguez Work Phone: [facility] Comment on above: Chest pain, unspecif ied type (Primary Dx); Hiatal hernia; Pleural nodule Start: 05-04-2019 End: 05-04-2019 Emergency department patient visit Vikram Peter Work Phone: [facility] Comment on above: Cough (Primary Dx); Fever, unspecified fever cause Start: 05-03-2019 End: 05-04-2019 Emergency department patient visit Raudel Rea Work Phone: [facility] Comment on above: Acute bronchitis wit h bronchospasm (Primary Dx) Procedures Date Procedure Procedure Detail Performing Clinician Start: 06-23-2023 Plain chest X-ray Start: 06-29-2022 End: 06-29-2022 X-ray of both feet Start: 05-23-2019 Ecg routine ecg w/le ast 12 lds w/i&r Michael Villegas MD Work Phone: Start: 05-19-2019 Ct angiography chest w/contrast/noncontrast Bib Rodriguez Work Phone: Start: 05-19-2019 Radiologic exam ches t 2 views Bib C [place] Work Phone: Start: 05-19-2019 Assay of magnesium Chen n C Jennifer Work Phone: Start: 05-19-2019 Assay of phosphorus inorganic Bib C Jennifer Work Phone: Start: 05-19-2019 Assay of thyroid stimulating hormone tsh Bib C [place] Work Phone: Start: 05-19-2019 Assay of troponin quantitative Bib C [place] Work Phone: Start: 05-19-2019 Blood count complete auto&auto difrntl wbc Bib C [place] Work Phone: Start: 05-19-2019 Comprehensive metabo lic panel Bib C [place] Work Phone: Start: 05-19-2019 Fibrin dgradj produc ts d-dimer quantitative Bib C [place] Work Phone: Start: 05-19-2019 Gonadotropin chorion ic qualitative Bib Ross Jennifer Work Phone: Start: 05-19-2019 MANUAL DIFFERENTIAL [place] Jennifer Work Phone: Start: 05-19-2019 Ecg routine ecg w/le ast 12 lds w/i&r Bib Ross Jennifer Work Phone: Start: 05-03-2019 Radiologic exam ches t 2 views [facility] Work Phone: Start: 05-03-2019 Urine test visual color cmprsn meths [facility] Work Phone: Start: 05-03-2019 Urnls dip stick/tabl et rgnt auto w/o microscopy [facility] Work Phone: Start: 05-03-2019 Assay of lipase [facility] Work Phone: Start: 05-03-2019 Assay of magnesium [employer] Work Phone: Start: 05-03-2019 Blood count complete auto&auto difrntl wbc [facility] Work Phone: Start: 05-03-2019 Comprehensive metabo lic panel [facility] Work Phone: Viral antigen assay Plan of Treatment Date Care Activity Detail Author Start: 06-29-2032 Urine microalbumin profile DTaP,Tdap,Td Vaccine (7 - Td or Tdap) [facility] Start: 07-16-2029 Urine microalbumin profile DTAP,TDAP,TD (6 - Td or Tdap) [facility] Start: 02-12-2024 Influenza [facility] Start: 06-23-2023 Start: 06-23-2023 Blood chemistry Start: 06-23-2023 End: 06-23-2023 Start: 02-11-2023 Covid-19 Vaccine ( season) Covid-19 Vaccine () [facility] Start: 09-26-2022 HPV TESTING HPV TESTING [facility] Start: 09-26-2022 PAP TESTING PAP TESTING [facility] Start: 09-26-2022 Screening for malignant neoplasm of cervix Cervical Cancer Screening [facility] Start: 06-29-2022 Consultation Start: 06-13-2022 DEPRESSION ASSESSMENT DEPRESSION ASSESSMENT [facility] Start: 02-11-2022 Influenza vaccination INFLUENZA (#1) [facility] Start: 02-11-2019 Influenza vaccination Flu [facility] (#1) [facility] [place] Start: 2007 Depression Screening Depression Screening [facility] Start: 2007 HIV SCREENING HIV SCREENING [facility] Start: 2007 HIV screening HIV Screening [facility] Start: 1989 COVID-19 VACCINE (#1) COVID-19 VACCINE (#1) [facility] EKG 12 [facility] [place] Patient Education ED Anxiety Milana ction ED Palpitations Work Phone: Patient referral [facility] Work Phone: [facility] Immunizations Immunization Date Immunization Notes Care Provider Fa cili 06-29-2022 tetanus toxoid, reduced diphtheria toxoid, and acellular pertussis vaccine, adsorbed 07-16-2019 tetanus toxoid, reduced diphtheria toxoid, and acellular pertussis vaccine, adsorbed Andrey Banda TREE SURGE[employer] Work Phone: [facility] 03-08-2018 influenza virus vaccine, unspecified formulation Alicia Marrero T[employer] SURGE[employer] Work Phone: [facility] 11-23-1990 diphtheria, tetanus toxoids and pertussis vaccine Andrey Banda TREE SURGEON.[employer] Work Phone: [facility] Work Phone: 11-23-1990 haemophilus influenz ae type b vaccine, conjugate unspecified formulation Andrey Banda TREE SURGEON.[employer] Work Phone: [facility] Work Phone: 11-23-1990 measles, mumps and rubella virus vaccine Andrey Banda TREE SURGEON.[employer] Work Phone: [facility] Work Phone: 11-23-1990 trivalent poliovirus vaccine, live, oral Andrey Pendlebury TREE SURGEON[employer] Work Phone: [facility] Work Phone: 04-22-1990 diphtheria, tetanus toxoids and pertussis vaccine Andrey Pendleteressa TREE SURGEON.[employer]ATION[employer]MAN Work Phone: [facility] Work Phone: 1989 trivalent poliovirus vaccine, live, oral Andrey Pendlebury TREE SURGEON.[employer] Work Phone: [facility] Work Phone: 1989 diphtheria, tetanus toxoids and pertussis vaccine Andrey Pendraegan TREE SURGEON[employer] Work Phone: [facility] Work Phone: 1989 trivalent poliovirus vaccine, live, oral Andrey Pendlebury TREE SURGE[employer] Work Phone: [facility] Work Phone: 1989 diphtheria, tetanus toxoids and pertussis vaccine Andrey Solo [employer]GE[employer] Work Phone: [facility] Work Phone: Payers Date Payer Category Payer Unknown [id number] 2024 Unknown [id number] 2023 Medicaid [id number] 2023 Self-pay [id number] 2020 Medicare [employer] [id number] 2020-Present [phone] [address] [place] [address] Medicare [id number] 2020 Unknown [id number] 2019 Medicaid [id number] 2015 Unknown [employer] xxxxxxxxxxx 2015-Present [phone] [address] [place] [address] xxxxxxxxxxx [id number] 2014 Unknown [id number] 1989 Unknown [id number] 1989 Unknown [id number] 1989 Unknown [id number] Medicare MEDICARE PART A B [id number] Unknown [facility] COMMUNITY PLAN [id number] Unknown [id number] Unknown [id number] Unknown [id number] Social History Date Type Detail Facility Start: 05-19-2019 End: 08-07-2024 Tobacco smoking status NDIS Never smoker [facility] Work Phone: Start: 05-19-2019 Alcohol intake Current drinke r of alcohol (finding) [place] Start: 05-03-2019 History SDOH Alcohol Frequency 1 [place] Start: 05-19-2019 Alcohol Comment once monthly [facility] Start: 1990 [facility]igned At [facility] Start: 05-03-2019 End: 05-04-2019 Alcohol intake Lifetime non-drinker (finding) Amanda [facility] MELISSA GILL Start: 06-29-2022 End: 06-23-2023 Tobacco smoking status NHIS Unknown if ever smoked Start: 06-03-2015 None [facility] Start: 06-03-2015 Alone [facility] Start: 10-28-2020 Non-smoker [facility] Start: 1990 Sex Assigned At Female [facility] Start: 07-27-2022 Tobacco use and exposure Smokeless tobacco non-user [facility] Work Phone: Start: 07-27-2022 End: 01-24-2024 Alcohol intake Current non-drinker of alcohol (finding) [facility] Start: 07-28-2022 End: 01-19-2024 History of Social function [facility] Start: 07-28-2022 End: 01-19-2024 Tobacco use panel [facility] Adult Depression Screening Assessment 0 [facility] Tobacco smoking status [facility] Start: 03-30-2024 Sex Female (finding) [facility] NEGATED: Highlighted row Functional Status Date Assessment Result Facility 08-09-2024 Functional Status Independent [facility] 08-09-2024 Functional Status Identified as high risk, Compliance Aide at bedside, Other: police in room [facility] 03-30-2024 Functional Status Room check performed [facility] Mental Status Date Assessment Result Facility 08-09-2024 Mental Status Orientation Oriented x 4 [facility] Orientation Oriented x 4 [facility] 06-23-2023 Cognitive function Voice/Name [facility] Work Phone: Clinical Notes 11-12-2007 to 08-09-2024 Note Date & Type Note Facility 08-09-2024 Hospital Discharg e instructions Patient Education 08/09/2024 15:28:54 High Blood Pressure, Established, Out of Control Uncontrolled High Blood Pressure (Established) Your blood pressure was unusually high today. This can occur if you ve missed doses of your blood pressure medicine. Or it can happen if you are taking other medicines. These include some asthma inhalers, decongestants, diet pills, and street drugs like cocaine and amphetamine. Other causes include: Weight gain More salt in your diet Smoking Caffeine Your blood pressure can also rise if you are emotionally upset or in intense pain. It may go back to normal after a period of rest. Blood pressure measurements are given as 2 numbers. Systolic blood pressure is the upper number. This is the pressure when the heart contracts. Diastolic blood pressure is the lower number. This is the pressure when the heart relaxes between beats. You will see your blood pressure readings written together. For example, a person with a systolic pressure of 118 and a diastolic pressure of 78 will have 118/78 written in the medical record. To be high blood pressure, the numbers must be higher when tested over a period of time. Blood pressure is categorized as normal, elevated, or stage 1 or stage 2 high blood pressure: Normal blood pressure is systolic of less than 120 and diastolic of less than 80 (120/80) Elevated blood pressure is systolic of 120 to 129 and diastolic less than 80 Stage 1 high blood pressure is systolic is 130 to 139 or diastolic between 80 to 89 Stage 2 high blood pressure is when systolic is 140 or higher or the diastolic is 90 or higher Uncontrolled high blood pressure can cause serious health problems. It raises your risk for heart attack, stroke, and heart failure. In general, if you have high blood pressure, keeping your blood pressure below 130/80 mmHg may help prevent these problems. Your healthcare provider may prescribe medicine to help control blood pressure if lifestyle changes are not enough. Home care It s important to take steps to lower your blood pressure. If you are taking blood pressure medicine, the guidelines below may help you need less or no medicines in the future. Start a weight-loss program if you are overweight. Cut back on the amount of salt in your diet: oAvoid high-salt foods like olives, pickles, smoked meats, and salted potato chips. oDon t add salt to your food at the table. oUse only small amounts of salt when cooking. Start an exercise program. Talk with your healthcare provider about what exercise program is best for you. It doesn t have to be difficult. Even brisk walking for 20 minutes 3 times a week is a good form of exercise. Avoid medicines that stimulates the heart. This includes many uyag-cdo-efbgaac cold and sinus decongestant pills and sprays, as well as diet pills. Check the warnings about high blood pressure on the label. Before purchasing any yafy-ipb-aristqo medicines or supplements, always ask the pharmacist about the product's potential interaction with your high blood pressure and your medicines. Stimulants such as amphetamine or cocaine could be lethal for someone with high blood pressure. Never take these. Limit how much caffeine you drink. Or switch to noncaffeinated beverages. Stop smoking. If you are a long-time smoker, this can be hard. Enroll in a stop-smoking program to make it more likely that you will succeed. Talk with your provider about ways to quit. Learn how to handle stress better. This is an important part of any program to lower blood pressure. Learn ways to relax. These include meditation, yoga, and biofeedback. If medicines were prescribed, take them exactly as directed. Missing doses may cause your blood pressure to get out of control. If you miss a dose or doses of your medicines, check with your healthcare provider or pharmacist about what to do. Consider buying an automatic blood pressure machine. Your provider may recommend a certain type. You can get one of these at most pharmacies. Measure your blood pressure twice a day, in the morning, and in the late afternoon. Keep a written record of your home blood pressure readings and take the record to your medical appointments. Here are some additional guidelines on home blood pressure monitoring from the [employer]. Don't smoke or drink coffee for 30 minutes Go to the bathroom before the test. Relax for 5 minutes before taking the measurement. Sit correctly. Be sure your back is supported. Don't sit on a couch or soft chair. Uncross your feet and place them flat on the floor. Place your arm on a solid, flat surface like a table with the upper arm at heart level. Make certain the middle of the cuff is directly above the bend of the elbow. Check the monitor's instruction manual for an illustration. Take multiple readings. When you measure, take 2 or 3 readings one minute apart and record all of the results. Take your blood pressure at the same time every day, or as your healthcare provider recommends. Record the date, time, and blood pressure reading. Take the record with you to your next appointment. If your blood pressure monitor has a built-in memory, simply take the monitor with you to your next appointment. Call your provider if you have several high readings. Don't be frightened by a single high reading, but if you get several high readings, check in with your healthcare provider. Note: When blood pressure reaches a systolic (top number) of 180 or higher or a diastolic (bottom number) of 110 or higher, emergency medical treatment is required. Call your healthcare provider immediately. Follow-up care Regular visits to your own healthcare provider for blood pressure and medicine checks are an important part of your care. Make a follow-up appointment as directed. Bring the record of your home blood pressure readings to the appointment. When to seek medical advice Call your healthcare provider right away if any of these occur: Blood pressure reaches a systolic (top number) of 180 or higher or diastolic (bottom number) of 110 or higher, emergency medical treatment is required. Chest, arm, shoulder, neck, or upper back pain Shortness of breath Severe headache Throbbing or rushing sound in the ears Nosebleed Extreme drowsiness, confusion, or fainting Dizziness or dizziness with spinning sensation (vertigo) Weakness in an arm or leg or on one side of the face Trouble speaking or seeing [id number] [employer]. [address] [place] [address]. All rights reserved. This information is not intended as a substitute for professional medical care. Always follow your healthcare professional's instructions. 08/09/2024 15:28:53 Chest Pain, Uncertain Cause Uncertain Causes of Chest Pain Chest pain can happen for a number of reasons. Sometimes the cause can't be determined. If your condition does not seem serious, and your pain does not appear to be coming from your heart, your healthcare provider may recommend watching it closely. Sometimes the signs of a serious problem take more time to appear. Many problems not related to your heart can cause chest pain. These include: Musculoskeletal. Costochondritis is an inflammation of the tissues around the ribs that can occur from trauma or overuse injuries, or a strain of the muscles of the chest wall Respiratory. Pneumonia, collapsed lung (pneumothorax), or inflammation of the lining of the chest and lungs (pleurisy) Gastrointestinal. Esophageal reflux, heartburn, ulcers, or gallbladder disease Anxiety and panic disorders Nerve compression and inflammation Rare miscellaneous problems such as aortic aneurysm (a swelling of the large artery coming out of the heart) or pulmonary embolism (a blood clot in the lungs) Home care After your visit, follow these recommendations: Rest today and avoid strenuous activity. Take any prescribed medicine as directed. Be aware of any recurrent chest pain and notice any changes Follow-up care Follow up with your healthcare provider if you do not start to feel better within 24 hours, or as advised. Call 911 Call 911 if any of these occur: A change in the type of pain: if it feels different, becomes more severe, lasts longer, or begins to spread into your shoulder, arm, neck, jaw or back Shortness of breath or increased pain with breathing Weakness, dizziness, or fainting Rapid heart beat Crushing sensation in your chest When to seek medical advice Call your healthcare provider right away if any of the following occur: Cough with dark colored sputum (phlegm) or blood Fever of 100.4 F (38 C) or higher, or as directed by your healthcare provider Swelling, pain or redness in one leg [id number] [employer] [place] [address]. All rights reserved. This information is not intended as a substitute for professional medical care. Always follow your healthcare professional's instructions. Follow Up Care 08/09/2024 13:09:31 With:PRISCILLA WALLER Address: [address] [place] [address] [address] [place] [place] [address]- [phone] When:2-4 days [facility] 08-09-2024 Emergency department Discharge summary Discharge Instructions Thank you for allowing [facility] to assist you with your healthcare needs. The following is important discharge information regarding your hospital visit. Diagnosis from Today's Visit Chest pain Hypertension What to Do Next Instructions from Your Care Team No qualifying data available. Post Acute Orders No qualifying data available. You Need to Schedule the Following Appointments Follow Up with PRISCILLA WALLER When:Within 2-4 days Where:[address] [place] [address] [address] [place] [address] [phone] Allergies Allergy (Diphenhydramine HCl) CeleXA Novak Contrast dye Lactose amoxicillin clindamycin haloperidol iodine moxifloxacin penicillin Medications Please ask your primary doctor or pharmacist before taking any other medication not listed, including over the counter drugs, herbal medications, vitamins and or supplements as they may interact with your home medications. What How Much When Instructions Last Dose Unchanged amLODIPine (amLODIPine 2.5 mg oral tablet) 1 tab(s) by mouth Once a day Unchanged benztropine (Cogentin) by mouth Unchanged cholecalciferol (Vitamin D3) 25 Microgram by mouth Every day Unchanged cloZAPine (cloZAPine 50 mg oral tablet) 7 tab(s) by mouth Three (3) times a day Unchanged losartan (losartan 50 mg oral tablet) 1 tab(s) by mouth Once a day Unchanged metoprolol (metoprolol succinate 50 mg oral TABLET extended release) 1 tab(s) by mouth Once a day Do not crush or chew (controlled release) Unchanged pantoprazole (pantoprazole 40 mg oral enteric coated tablet) by mouth Once a day Unchanged rOPINIRole (rOPINIRole 2 mg oral tablet) by mouth Three (3) times a day Please take this list to your next doctor s visit. Bring all medications you take, including over the counter medications, herbals and other supplements with you to your doctor s visit. Patients and families are reminded to discard old lists and to update any records with all medication providers or retail pharmacies. Education Materials Uncontrolled High Blood Pressure (Established) Your blood pressure was unusually high today. This can occur if you ve missed doses of your blood pressure medicine. Or it can happen if you are taking other medicines. These include some asthma inhalers, decongestants, diet pills, and street drugs like cocaine and amphetamine. Other causes include: Weight gain More salt in your diet Smoking Caffeine Your blood pressure can also rise if you are emotionally upset or in intense pain. It may go back to normal after a period of rest. Blood pressure measurements are given as 2 numbers. Systolic blood pressure is the upper number. This is the pressure when the heart contracts. Diastolic blood pressure is the lower number. This is the pressure when the heart relaxes between beats. You will see your blood pressure readings written together. For example, a person with a systolic pressure of 118 and a diastolic pressure of 78 will have 118/78 written in the medical record. To be high blood pressure, the numbers must be higher when tested over a period of time. Blood pressure is categorized as normal, elevated, or stage 1 or stage 2 high blood pressure: Normal blood pressure is systolic of less than 120 and diastolic of less than 80 (120/80) Elevated blood pressure is systolic of 120 to 129 and diastolic less than 80 Stage 1 high blood pressure is systolic is 130 to 139 or diastolic between 80 to 89 Stage 2 high blood pressure is when systolic is 140 or higher or the diastolic is 90 or higher Uncontrolled high blood pressure can cause serious health problems. It raises your risk for heart attack, stroke, and heart failure. In general, if you have high blood pressure, keeping your blood pressure below 130/80 mmHg may help prevent these problems. Your healthcare provider may prescribe medicine to help control blood pressure if lifestyle changes are not enough. Home care It s important to take steps to lower your blood pressure. If you are taking blood pressure medicine, the guidelines below may help you need less or no medicines in the future. Start a weight-loss program if you are overweight. Cut back on the amount of salt in your diet: oAvoid high-salt foods like olives, pickles, smoked meats, and salted potato chips. oDon t add salt to your food at the table. oUse only small amounts of salt when cooking. Start an exercise program. Talk with your healthcare provider about what exercise program is best for you. It doesn t have to be difficult. Even brisk walking for 20 minutes 3 times a week is a good form of exercise. Avoid medicines that stimulates the heart. This includes many fkhd-rqs-kmqlxge cold and sinus decongestant pills and sprays, as well as diet pills. Check the warnings about high blood pressure on the label. Before purchasing any eczw-lxy-vywmnul medicines or supplements, always ask the pharmacist about the product's potential interaction with your high blood pressure and your medicines. Stimulants such as amphetamine or cocaine could be lethal for someone with high blood pressure. Never take these. Limit how much caffeine you drink. Or switch to noncaffeinated beverages. Stop smoking. If you are a long-time smoker, this can be hard. Enroll in a stop-smoking program to make it more likely that you will succeed. Talk with your provider about ways to quit. Learn how to handle stress better. This is an important part of any program to lower blood pressure. Learn ways to relax. These include meditation, yoga, and biofeedback. If medicines were prescribed, take them exactly as directed. Missing doses may cause your blood pressure to get out of control. If you miss a dose or doses of your medicines, check with your healthcare provider or pharmacist about what to do. Consider buying an automatic blood pressure machine. Your provider may recommend a certain type. You can get one of these at most pharmacies. Measure your blood pressure twice a day, in the morning, and in the late afternoon. Keep a written record of your home blood pressure readings and take the record to your medical appointments. Here are some additional guidelines on home blood pressure monitoring from the [employer]. Don't smoke or drink coffee for 30 minutes Go to the bathroom before the test. Relax for 5 minutes before taking the measurement. Sit correctly. Be sure your back is supported. Don't sit on a couch or soft chair. Uncross your feet and place them flat on the floor. Place your arm on a solid, flat surface like a table with the upper arm at heart level. Make certain the middle of the cuff is directly above the bend of the elbow. Check the monitor's instruction manual for an illustration. Take multiple readings. When you measure, take 2 or 3 readings one minute apart and record all of the results. Take your blood pressure at the same time every day, or as your healthcare provider recommends. Record the date, time, and blood pressure reading. Take the record with you to your next appointment. If your blood pressure monitor has a built-in memory, simply take the monitor with you to your next appointment. Call your provider if you have several high readings. Don't be frightened by a single high reading, but if you get several high readings, check in with your healthcare provider. Note: When blood pressure reaches a systolic (top number) of 180 or higher or a diastolic (bottom number) of 110 or higher, emergency medical treatment is required. Call your healthcare provider immediately. Follow-up care Regular visits to your own healthcare provider for blood pressure and medicine checks are an important part of your care. Make a follow-up appointment as directed. Bring the record of your home blood pressure readings to the appointment. When to seek medical advice Call your healthcare provider right away if any of these occur: Blood pressure reaches a systolic (top number) of 180 or higher or diastolic (bottom number) of 110 or higher, emergency medical treatment is required. Chest, arm, shoulder, neck, or upper back pain Shortness of breath Severe headache Throbbing or rushing sound in the ears Nosebleed Extreme drowsiness, confusion, or fainting Dizziness or dizziness with spinning sensation (vertigo) Weakness in an arm or leg or on one side of the face Trouble speaking or seeing [phone] [employer]. [address] [place] [address]. All rights reserved. This information is not intended as a substitute for professional medical care. Always follow your healthcare professional's instructions. Uncertain Causes of Chest Pain Chest pain can happen for a number of reasons. Sometimes the cause can't be determined. If your condition does not seem serious, and your pain does not appear to be coming from your heart, your healthcare provider may recommend watching it closely. Sometimes the signs of a serious problem take more time to appear. Many problems not related to your heart can cause chest pain. These include: Musculoskeletal. Costochondritis is an inflammation of the tissues around the ribs that can occur from trauma or overuse injuries, or a strain of the muscles of the chest wall Respiratory. Pneumonia, collapsed lung (pneumothorax), or inflammation of the lining of the chest and lungs (pleurisy) Gastrointestinal. Esophageal reflux, heartburn, ulcers, or gallbladder disease Anxiety and panic disorders Nerve compression and inflammation Rare miscellaneous problems such as aortic aneurysm (a swelling of the large artery coming out of the heart) or pulmonary embolism (a blood clot in the lungs) Home care After your visit, follow these recommendations: Rest today and avoid strenuous activity. Take any prescribed medicine as directed. Be aware of any recurrent chest pain and notice any changes Follow-up care Follow up with your healthcare provider if you do not start to feel better within 24 hours, or as advised. Call 911 Call 911 if any of these occur: A change in the type of pain: if it feels different, becomes more severe, lasts longer, or begins to spread into your shoulder, arm, neck, jaw or back Shortness of breath or increased pain with breathing Weakness, dizziness, or fainting Rapid heart beat Crushing sensation in your chest When to seek medical advice Call your healthcare provider right away if any of the following occur: Cough with dark colored sputum (phlegm) or blood Fever of 100.4 F (38 C) or higher, or as directed by your healthcare provider Swelling, pain or redness in one leg [id number] [employer]. [address] [place] [address], [place] [address]. All rights reserved. This information is not intended as a substitute for professional medical care. Always follow your healthcare professional's instructions. Additional Information VACCINATE! IT SAVES LIVES! Members of the community who have not yet received the COVID-19 vaccine and would like to receive it can visit one of [facility] vaccine clinics. There are many vaccine clinic locations within the [facility]. For locations and available times, please visit [email or web address] [email or web address] It is important to note that some COVID mobile vaccine clinics are held outdoors and may be canceled in rainy or stormy conditions. To learn more about pediatric vaccinations (ages 5-11), we invite you to visit the [employer] [facility] webpage. [email or web address]/p [email or web address] [email or web address].html To learn more about the COVID-19 vaccine, we invite you to visit the CDC website for a list of frequently asked questions. https://www.cdc.gov/coronavirus/ 2019-ncov/vaccines/faq.html [employer] Patient Portal Access Instructions: Stay connected with your healthcare team and access your personal medical information anytime with the [employer] Patient Portal. If you would like a full copy of your medical records please contact the [facility] Medical Records Department Tuesday through Tuesday between 8a.m. and 4:30p.m. Please follow the directions below to access the portal: 1.Access the email account you provided upon registration to the hospital.2.Look for an invitation email from [facility].3.Open the email and access the invitation link: Accept Invitation to [employer]4.Fill in the required contreras to create your account. Sign into [email or web address] with your username and password that you created in the above steps to stay up to date. You can then view a summary of results, a summary of your visits, and the ability to download your summaries to your computer or send the information securely to a physician. Remember that your healthcare information is confidential, so carefully consider who you will allow to register on the [employer] Patient Portal for access to your information. You can also access the [employer] Patient Portal on the [employer] jemal. Simply click on "Health Records" under "Health Data" and then click on the [employer] logo. HOW TO SAFELY DISPOSE OF PRESCRIPTION MEDICATIONS Please use one of the following methods to safely dispose of your unused medications. 1.Use a drug disposal kit: the drug disposal pouch allows you to safely discard your old and unused drugs. Ask your nurse to give you one when you are discharged.2.Visit a local take-back location: Many local pharmacies and police departments have programs that collect old and unwanted prescription drugs. Call your local pharmacy or go to http://[employer].AudioTag/9R5Zs5n to find one close to you.3.Make use of household items: Use cat litter or old coffee grounds to dispose medications if other options are not available. Mix your drugs with these household products, seal them in an airtight container and throw it into the garbage. Call [facility] Health: [phone] to be sure your drugs can be disposed of in this way. Some medicines may require a different approach.4.Never flush your medications down the toilet. IF YOU HAVE BEEN PRESCRIBED AN OPIOIDS FOR PAIN If you have been prescribed an opioid (such as hydrocodone, oxycodone or morphine), it is critical to understand the possible side effects and risks of opioid pain medications. Even when taken as directed, opioids can have several side effects including: Tolerance, meaning you might need to take more of a medication for the same pain relief. Nausea, vomiting and/or constipation. Sleepiness, dizziness, dry mouth, confusion, depression or itching. Physical dependence, meaning you have withdrawal symptoms when a medication is stopped ? this can develop within a few days. KNOW YOUR RESPONSIBILITIES It is important to know exactly how much and how often to take the opioid pain medications you are prescribed. Never take opioids in higher amounts or more often than prescribed. Do not combine opioids with alcohol or other drugs that cause drowsiness, such as benzodiazepines, also known as benzos, including diazepam and alprazolam, muscle relaxants or sleep aids. Never sell or share prescription opioids. This is illegal. Store opioids in a secure place and out of reach of others (including children, family, friends and visitors). The last page(s) of this document has been signed and retained as a CHART COPY Signatures Patient Education Materials High Blood Pressure, Established, Out of Control Chest Pain, Uncertain Cause Medication Leaflets My discharge plan and instructions have been reviewed and explained to me and I,GERMAINE BROWNING understand my current condition and have read and understand these discharge instructions. I have received a written copy of the plan/instructions. If I have questions, I am aware that I should contact my doctor. Patient/Nursery Helper Signature: Date/Time: Relationship to Patient: Witness Name/Signature: Date/Time: [facility] 08-09-2024 Emergency department Discharge summary Discharge Instructions Thank you for allowing [facility] to assist you with your healthcare needs. The following is important discharge information regarding your hospital visit. Diagnosis from Today's Visit Chest pain Hypertension What to Do Next Instructions from Your Care Team No qualifying data available. Post Acute Orders No qualifying data available. You Need to Schedule the Following Appointments Follow Up with PRISCILLA WALLER When:Within 2-4 days Where:[address] [facility] [address] [place] [address]- [phone] Allergies Allergy (Diphenhydramine HCl) CeleXA Novak Contrast dye Lactose amoxicillin clindamycin haloperidol iodine moxifloxacin penicillin Medications Please ask your primary doctor or pharmacist before taking any other medication not listed, including over the counter drugs, herbal medications, vitamins and or supplements as they may interact with your home medications. What How Much When Instructions Last Dose Unchanged amLODIPine (amLODIPine 2.5 mg oral tablet) 1 tab(s) by mouth Once a day Unchanged benztropine (Cogentin) by mouth Unchanged cholecalciferol (Vitamin D3) 25 Microgram by mouth Every day Unchanged cloZAPine (cloZAPine 50 mg oral tablet) 7 tab(s) by mouth Three (3) times a day Unchanged losartan (losartan 50 mg oral tablet) 1 tab(s) by mouth Once a day Unchanged metoprolol (metoprolol succinate 50 mg oral TABLET extended release) 1 tab(s) by mouth Once a day Do not crush or chew (controlled release) Unchanged pantoprazole (pantoprazole 40 mg oral enteric coated tablet) by mouth Once a day Unchanged rOPINIRole (rOPINIRole 2 mg oral tablet) by mouth Three (3) times a day Please take this list to your next doctor s visit. Bring all medications you take, including over the counter medications, herbals and other supplements with you to your doctor s visit. Patients and families are reminded to discard old lists and to update any records with all medication providers or retail pharmacies. Education Materials Uncontrolled High Blood Pressure (Established) Your blood pressure was unusually high today. This can occur if you ve missed doses of your blood pressure medicine. Or it can happen if you are taking other medicines. These include some asthma inhalers, decongestants, diet pills, and street drugs like cocaine and amphetamine. Other causes include: Weight gain More salt in your diet Smoking Caffeine Your blood pressure can also rise if you are emotionally upset or in intense pain. It may go back to normal after a period of rest. Blood pressure measurements are given as 2 numbers. Systolic blood pressure is the upper number. This is the pressure when the heart contracts. Diastolic blood pressure is the lower number. This is the pressure when the heart relaxes between beats. You will see your blood pressure readings written together. For example, a person with a systolic pressure of 118 and a diastolic pressure of 78 will have 118/78 written in the medical record. To be high blood pressure, the numbers must be higher when tested over a period of time. Blood pressure is categorized as normal, elevated, or stage 1 or stage 2 high blood pressure: Normal blood pressure is systolic of less than 120 and diastolic of less than 80 (120/80) Elevated blood pressure is systolic of 120 to 129 and diastolic less than 80 Stage 1 high blood pressure is systolic is 130 to 139 or diastolic between 80 to 89 Stage 2 high blood pressure is when systolic is 140 or higher or the diastolic is 90 or higher Uncontrolled high blood pressure can cause serious health problems. It raises your risk for heart attack, stroke, and heart failure. In general, if you have high blood pressure, keeping your blood pressure below 130/80 mmHg may help prevent these problems. Your healthcare provider may prescribe medicine to help control blood pressure if lifestyle changes are not enough. Home care It s important to take steps to lower your blood pressure. If you are taking blood pressure medicine, the guidelines below may help you need less or no medicines in the future. Start a weight-loss program if you are overweight. Cut back on the amount of salt in your diet: oAvoid high-salt foods like olives, pickles, smoked meats, and salted potato chips. oDon t add salt to your food at the table. oUse only small amounts of salt when cooking. Start an exercise program. Talk with your healthcare provider about what exercise program is best for you. It doesn t have to be difficult. Even brisk walking for 20 minutes 3 times a week is a good form of exercise. Avoid medicines that stimulates the heart. This includes many jafb-paw-ugnmhwk cold and sinus decongestant pills and sprays, as well as diet pills. Check the warnings about high blood pressure on the label. Before purchasing any jext-hdh-sctorun medicines or supplements, always ask the pharmacist about the product's potential interaction with your high blood pressure and your medicines. Stimulants such as amphetamine or cocaine could be lethal for someone with high blood pressure. Never take these. Limit how much caffeine you drink. Or switch to noncaffeinated beverages. Stop smoking. If you are a long-time smoker, this can be hard. Enroll in a stop-smoking program to make it more likely that you will succeed. Talk with your provider about ways to quit. Learn how to handle stress better. This is an important part of any program to lower blood pressure. Learn ways to relax. These include meditation, yoga, and biofeedback. If medicines were prescribed, take them exactly as directed. Missing doses may cause your blood pressure to get out of control. If you miss a dose or doses of your medicines, check with your healthcare provider or pharmacist about what to do. Consider buying an automatic blood pressure machine. Your provider may recommend a certain type. You can get one of these at most pharmacies. Measure your blood pressure twice a day, in the morning, and in the late afternoon. Keep a written record of your home blood pressure readings and take the record to your medical appointments. Here are some additional guidelines on home blood pressure monitoring from the [employer]. Don't smoke or drink coffee for 30 minutes Go to the bathroom before the test. Relax for 5 minutes before taking the measurement. Sit correctly. Be sure your back is supported. Don't sit on a couch or soft chair. Uncross your feet and place them flat on the floor. Place your arm on a solid, flat surface like a table with the upper arm at heart level. Make certain the middle of the cuff is directly above the bend of the elbow. Check the monitor's instruction manual for an illustration. Take multiple readings. When you measure, take 2 or 3 readings one minute apart and record all of the results. Take your blood pressure at the same time every day, or as your healthcare provider recommends. Record the date, time, and blood pressure reading. Take the record with you to your next appointment. If your blood pressure monitor has a built-in memory, simply take the monitor with you to your next appointment. Call your provider if you have several high readings. Don't be frightened by a single high reading, but if you get several high readings, check in with your healthcare provider. Note: When blood pressure reaches a systolic (top number) of 180 or higher or a diastolic (bottom number) of 110 or higher, emergency medical treatment is required. Call your healthcare provider immediately. Follow-up care Regular visits to your own healthcare provider for blood pressure and medicine checks are an important part of your care. Make a follow-up appointment as directed. Bring the record of your home blood pressure readings to the appointment. When to seek medical advice Call your healthcare provider right away if any of these occur: Blood pressure reaches a systolic (top number) of 180 or higher or diastolic (bottom number) of 110 or higher, emergency medical treatment is required. Chest, arm, shoulder, neck, or upper back pain Shortness of breath Severe headache Throbbing or rushing sound in the ears Nosebleed Extreme drowsiness, confusion, or fainting Dizziness or dizziness with spinning sensation (vertigo) Weakness in an arm or leg or on one side of the face Trouble speaking or seeing [phone] The [employer]. [address] [place] [address], [place] [address]. All rights reserved. This information is not intended as a substitute for professional medical care. Always follow your healthcare professional's instructions. Uncertain Causes of Chest Pain Chest pain can happen for a number of reasons. Sometimes the cause can't be determined. If your condition does not seem serious, and your pain does not appear to be coming from your heart, your healthcare provider may recommend watching it closely. Sometimes the signs of a serious problem take more time to appear. Many problems not related to your heart can cause chest pain. These include: Musculoskeletal. Costochondritis is an inflammation of the tissues around the ribs that can occur from trauma or overuse injuries, or a strain of the muscles of the chest wall Respiratory. Pneumonia, collapsed lung (pneumothorax), or inflammation of the lining of the chest and lungs (pleurisy) Gastrointestinal. Esophageal reflux, heartburn, ulcers, or gallbladder disease Anxiety and panic disorders Nerve compression and inflammation Rare miscellaneous problems such as aortic aneurysm (a swelling of the large artery coming out of the heart) or pulmonary embolism (a blood clot in the lungs) Home care After your visit, follow these recommendations: Rest today and avoid strenuous activity. Take any prescribed medicine as directed. Be aware of any recurrent chest pain and notice any changes Follow-up care Follow up with your healthcare provider if you do not start to feel better within 24 hours, or as advised. Call 911 Call 911 if any of these occur: A change in the type of pain: if it feels different, becomes more severe, lasts longer, or begins to spread into your shoulder, arm, neck, jaw or back Shortness of breath or increased pain with breathing Weakness, dizziness, or fainting Rapid heart beat Crushing sensation in your chest When to seek medical advice Call your healthcare provider right away if any of the following occur: Cough with dark colored sputum (phlegm) or blood Fever of 100.4 F (38 C) or higher, or as directed by your healthcare provider Swelling, pain or redness in one leg [phone] [employer]. [address] [place] [address], [place] [address]. All rights reserved. This information is not intended as a substitute for professional medical care. Always follow your healthcare professional's instructions. Additional Information VACCINATE! IT SAVES LIVES! Members of the community who have not yet received the COVID-19 vaccine and would like to receive it can visit one of [facility] vaccine clinics. There are many vaccine clinic locations within the State. For locations and available times, please visit [email or web address].[email or web address] gov/. It is important to note that some COVID mobile vaccine clinics are held outdoors and may be canceled in rainy or stormy conditions. To learn more about pediatric vaccinations (ages 5-11), we invite you to visit the [facility] webpage. https://www.[email or web address].org/p ages/9937-Rlmoi-Ewlagrfrisd-Freq pzauku-Jhywr-Nckzndngg.html To learn more about the COVID-19 vaccine, we invite you to visit the CDC website for a list of frequently asked questions. https://www.cdc.gov/coronavirus/ 2019-ncov/vaccines/faq.html [facility] Patient Portal Access Instructions: Stay connected with your healthcare team and access your personal medical information anytime with the [facility] Patient Portal. If you would like a full copy of your medical records please contact the [facility] Medical Records Department Tuesday through Tuesday between 8a.m. and 4:30p.m. Please follow the directions below to access the portal: 1.Access the email account you provided upon registration to the hospital.2.Look for an invitation email from [facility].3.Open the email and access the invitation link: Accept Invitation to [facility]4.Fill in the required contreras to create your account. Sign into [email or web address] with your username and password that you created in the above steps to stay up to date. You can then view a summary of results, a summary of your visits, and the ability to download your summaries to your computer or send the information securely to a physician. Remember that your healthcare information is confidential, so carefully consider who you will allow to register on the [facility] Patient Portal for access to your information. You can also access the [facility] Patient Portal on the [employer] jemal. Simply click on "Health Records" under "Health Data" and then click on the [facility] logo. HOW TO SAFELY DISPOSE OF PRESCRIPTION MEDICATIONS Please use one of the following methods to safely dispose of your unused medications. 1.Use a drug disposal kit: the drug disposal pouch allows you to safely discard your old and unused drugs. Ask your nurse to give you one when you are discharged.2.Visit a local take-back location: Many local pharmacies and police departments have programs that collect old and unwanted prescription drugs. Call your local pharmacy or go to http://[employer].AudioTag/5W7Ic7v to find one close to you.3.Make use of household items: Use cat litter or old coffee grounds to dispose medications if other options are not available. Mix your drugs with these household products, seal them in an airtight container and throw it into the garbage. Call [facility]: [phone] to be sure your drugs can be disposed of in this way. Some medicines may require a different approach.4.Never flush your medications down the toilet. IF YOU HAVE BEEN PRESCRIBED AN OPIOIDS FOR PAIN If you have been prescribed an opioid (such as hydrocodone, oxycodone or morphine), it is critical to understand the possible side effects and risks of opioid pain medications. Even when taken as directed, opioids can have several side effects including: Tolerance, meaning you might need to take more of a medication for the same pain relief. Nausea, vomiting and/or constipation. Sleepiness, dizziness, dry mouth, confusion, depression or itching. Physical dependence, meaning you have withdrawal symptoms when a medication is stopped ? this can develop within a few days. KNOW YOUR RESPONSIBILITIES It is important to know exactly how much and how often to take the opioid pain medications you are prescribed. Never take opioids in higher amounts or more often than prescribed. Do not combine opioids with alcohol or other drugs that cause drowsiness, such as benzodiazepines, also known as benzos, including diazepam and alprazolam, muscle relaxants or sleep aids. Never sell or share prescription opioids. This is illegal. Store opioids in a secure place and out of reach of others (including children, family, friends and visitors). The last page(s) of this document has been signed and retained as a CHART COPY Signatures Patient Education Materials High Blood Pressure, Established, Out of Control Chest Pain, Uncertain Cause Medication Leaflets My discharge plan and instructions have been reviewed and explained to me and I,GERMAINE BROWNING understand my current condition and have read and understand these discharge instructions. I have received a written copy of the plan/instructions. If I have questions, I am aware that I should contact my doctor. Patient/Nursery Helper Signature: Date/Time: Relationship to Patient: Witness Name/Signature: Date/Time: [facility] 08-09-2024 Note Exam Date Time Procedure Performing Provider Status 08/09/24 2:48 PM EKG (ED) - CV ENRIQUE GARCIA MD; Auth ( Verified) ECG Final Report SINUS RHYTHM Electronic Signature: ENRIQUE GARCIA MD 08/09/2024 15:27:11 [id number] Note* Exam Date Time Procedure Performing Provider Status 08/09/24 1:49 PM XR Chest 1 View QUINCY TAY MD; Aut h (Verified) [id number] ORIGINAL EXAMINATION: ONE XRAY VIEW OF THE CHEST 08/09/2024 1:49 pm COMPARISON: 03/30/2024 HISTORY: ORDERING SYSTEM PROVIDED HISTORY: Reason for Exam: chest pain FINDINGS: Low lung volumes and hypoventilatory changes. Linear density at the right lung base. Rotation to the right. Mild peribronchial cuffing. Streaky left basilar infiltrate. Costophrenic angles are sharp. No pneumothorax. No acute skeletal abnormality. IMPRESSION: 1. Low lung volumes and hypoventilatory changes. 2. Streaky left basilar infiltrate, atelectasis and or consolidation. 3. Linear density at the right lung base, atelectasis and or scarring. 4. Bronchovascular crowding with mild peribronchial cuffing could reflect mild bronchitis/reactive airway disease. Interpreted by: Quincy Tay Preliminary Report By: Quincy Tay Electronically signed By Quincy Tay Dictated Date: 08/09/2024 1:54:56 PM Prelim Date: 08/09/2024 1:56:16 PM Sign Date: 08/09/2024 1:56:16 PM Ordering Provider: ENRIQUE [facility]ARCIA [id number] Note* Exam Date Time Procedure Performing Provider Status 08/09/24 1:15 PM EKG (ED) - CV ENRIQUE GARCIA MD; Auth ( Verified) ECG Final Report SINUS RHYTHM Electronic Signature: ENRIQUE GARCIA MD 08/09/2024 13:50:22 [id number] Hospital Discharge instructions Patient Education 03/30/2024 23:43:08 Near Syncope, Vasovagal Near-Fainting: Vagal Reaction Fainting (syncope) is a temporary loss of consciousness (passing out). It is associated with a lossof postural tone. Postural tone is the constant contraction of the muscles in your body to help keep your body upright. It also helps blood return towards the heart and brain. Syncope occurs when there is reduced blood flow to the brain due to this common vagal reaction. A vagal reaction is a reflex response that causes a sudden drop in your blood pressure, and your pulse to slow down. If the pulse is low enough, the blood pressure falls and causes fainting or near-fainting. Lying down usually stops the reaction very quickly. These are symptoms of near-fainting: Feeling lightheaded or like you are going to faint Weak pulse Nausea Sweating Blurred vision or feeling like your vision is "blacking out" Palpitations Chest pain Trouble breathing Cool and clammy skin Causes for near-fainting include: Sudden emotional stress like fear, pain, panic, sight of blood Straining or overexertion, straining while using the toilet, coughing, sneezing Standing up too quickly, or standing up for too long a time Home care The following will help you care for yourself at home: Rest today and go back to your normal activities as soon as you are feeling back to normal. If you become light-headed or dizzy, lie down right away or sit with your head lowered between yourknees. Stay hydrated and do not skip meals. Don't stand for long periods or stay in hot places Do what you can to prevent constipation. If you bear down excessively when trying to have a bowel movement, this can trigger a vagal response There may be other causes for a vagal response and near-syncope. For example, this can happen afteropen-heart surgery when the heart muscle is inflamed and irritated. Check with your doctor to see if there is testing you need such as a tilt-table test, heart rhythm monitoring, or blood tests. Review the medicines you take with your healthcare provider and pharmacist to be sure the symptoms you have are not a side effect of a medicine. Follow-up care Follow up with your healthcare provider, or as advised. If you are having frequent episodes of near-syncope or vagal reactions, be cautious about activities such as driving that could harm yourself or others if you were to faint. Do not drive or operate heavy machinery if you are feeling like you may faint. Call 911 Call 911 if any of these occur: Another fainting spell occurs, and it is not explained by the common causes listed above Fainting or loss of consciousness Chest, arm, neck, jaw, back, or abdominal pain Shortness of breath Weakness, tingling, or numbness in one side of the face, one arm or leg Slurred speech, confusion, trouble walking or seeing Seizure Blood in vomit or stools (black or red color) When to seek medical advice Call your healthcare provider right away if you have occasional mild lightheadedness, especially when standing up. [id number] [employer]. [address] [place] [address]. All rights reserved. This information is not intended as a substitute for professional medical care. Always follow yourhealthcare professional's instructions. Follow Up Care 03/30/2024 21:35:23 With:Follow up with primary care provider Address: When:1-2 days With:[facility] Address: [phone] When:1-2 days Comments:Return to ED if symptoms worsen Follow-up with Primary Care Physician [facility] 10-19-2024 Emergency department Discharge summary Discharge Instructions Thank you for allowing [facility] to assist you with your healthcare needs. The following is importantdischarge information regarding your hospital visit. What to Do Next Instructions from Your Care Team Please follow-up with your primary care provider in the next 1 day. If you develop recurrence of your symptoms, worsening lightheadedness, you develop shortness of breath or chest pain, please immediately return to the emergency department for reevaluation. Please stay hydrated with lots of fluids. No qualifying data available. Post Acute Orders No qualifying data available. You Need to Schedule the Following Appointments Follow Up with Follow up with primary care provider When:Within 1-2 days Follow Up with [facility] When:Within 1-2 days Where: [phone] Additional Information: Return to ED if symptoms worsen Follow-up with Primary Care Physician Allergies Allergy (Diphenhydramine HCl) CeleXA Novak Contrast dye Lactose amoxicillin clindamycin haloperidol iodine moxifloxacin penicillin Medications Please ask your primary doctor or pharmacist before taking any other medication not listed, including over the counter drugs, herbal medications, vitamins and or supplements as they may interact withyour home medications. Please take this list to your next doctor s visit. Bring all medications you take, including over the counter medications, herbals and other supplements with you to your doctor s visit. Patients and families are reminded to discard old lists and to update any records with all medication providers or retail pharmacies. Education Materials Near-Fainting: Vagal Reaction Fainting (syncope) is a temporary loss of consciousness (passing out). It is associated with a lossof postural tone. Postural tone is the constant contraction of the muscles in your body to help keep your body upright. It also helps blood return towards the heart and brain. Syncope occurs when there is reduced blood flow to the brain due to this common vagal reaction. A vagal reaction is a reflex response that causes a sudden drop in your blood pressure, and your pulse to slow down. If the pulse is low enough, the blood pressure falls and causes fainting or near-fainting. Lying down usually stops the reaction very quickly. These are symptoms of near-fainting: Feeling lightheaded or like you are going to faint Weak pulse Nausea Sweating Blurred vision or feeling like your vision is "blacking out" Palpitations Chest pain Trouble breathing Cool and clammy skin Causes for near-fainting include: Sudden emotional stress like fear, pain, panic, sight of blood Straining or overexertion, straining while using the toilet, coughing, sneezing Standing up too quickly, or standing up for too long a time Home care The following will help you care for yourself at home: Rest today and go back to your normal activities as soon as you are feeling back to normal. If you become light-headed or dizzy, lie down right away or sit with your head lowered between yourknees. Stay hydrated and do not skip meals. Don't stand for long periods or stay in hot places Do what you can to prevent constipation. If you bear down excessively when trying to have a bowel movement, this can trigger a vagal response There may be other causes for a vagal response and near-syncope. For example, this can happen afteropen-heart surgery when the heart muscle is inflamed and irritated. Check with your doctor to see if there is testing you need such as a tilt-table test, heart rhythm monitoring, or blood tests. Review the medicines you take with your healthcare provider and pharmacist to be sure the symptoms you have are not a side effect of a medicine. Follow-up care Follow up with your healthcare provider, or as advised. If you are having frequent episodes of near-syncope or vagal reactions, be cautious about activities such as driving that could harm yourself or others if you were to faint. Do not drive or operate heavy machinery if you are feeling like you may faint. Call 911 Call 911 if any of these occur: Another fainting spell occurs, and it is not explained by the common causes listed above Fainting or loss of consciousness Chest, arm, neck, jaw, back, or abdominal pain Shortness of breath Weakness, tingling, or numbness in one side of the face, one arm or leg Slurred speech, confusion, trouble walking or seeing Seizure Blood in vomit or stools (black or red color) When to seek medical advice Call your healthcare provider right away if you have occasional mild lightheadedness, especially when standing up. [id number] [employer]. [address] [place] [address]. All rights reserved. This information is not intended as a substitute for professional medical care. Always follow yourhealthcare professional's instructions. Additional Information VACCINATE! IT SAVES LIVES! Members of the community who have not yet received the COVID-19 vaccine and would like to receive it can visit one of [facility] vaccine clinics. There are many vaccine clinic locations within the [facility]. For locations and available times, please visit [email or web address].gov/. It is important to note that some COVID mobile vaccine clinics are held outdoors and may be canceled in rainy or stormy conditions. To learn more about pediatric vaccinations (ages 5-11), we invite you to visit the [facility] webpage. https://www.[facility].org/pages/5996-Nidvo-Ujbtsvdrqjg-Zoelrknogt-Uwmih-Sdf stions.htmlTo learn more about the COVID-19 vaccine, we invite you to visit the CDC website for a list of frequently asked questions. https://www.cdc.gov/coronavirus/2019-ncov/vaccines/faq.html [facility] Patient Portal Access Instructions: Stay connected with your healthcare team and access your personal medical information anytime with the [facility] Patient Portal. If you would like a full copy of your medical records please contact the [facility] Medical Records Department Tuesday through Tuesday between 8a.m. and 4:30p.m. Please follow the directions below to access the portal: 1.Access the email account you provided upon registration to the [facility].2.Look for an invitation email from [facility].3.Open the email and access the invitation link: Accept Invitation to [facility]4.Fill in the required contreras to create your account. Sign into [email or web address] with your username and password that you created in the above steps to stay up to date. You can then view a summary of results, a summary of your visits, and the ability to download your summaries to your computer or send the information securely to a physician. Remember that your healthcare information is confidential, so carefully consider who you will allow to register on the [facility] Patient Portal for access to your information. You can also access the [facility] Patient Portal on the [employer] jemal. Simply click on "Health Records" under "HealthData" and then click on the [employer] logo. HOW TO SAFELY DISPOSE OF PRESCRIPTION MEDICATIONS Please use one of the following methods to safely dispose of your unused medications. 1.Use a drug disposal kit: the drug disposal pouch allows you to safely discard your old and unuseddrugs. Ask your nurse to give you one when you are discharged.2.Visit a local take-back location: Many local pharmacies and police departments have programs that collect old and unwanted prescriptiondrugs. Call your local pharmacy or go to http://bit.AudioTag/5V9Jf5b to find one close to you.3.Make use of household items: Use cat litter or old coffee grounds to dispose medications if other options arenot available. Mix your drugs with these household products, seal them in an airtight container andthrow it into the garbage. Call [facility]: [phone] to be sure your drugs can be disposed of in this way. Some medicines may require a different approach.4.Never flush your medications down the toilet. IF YOU HAVE BEEN PRESCRIBED AN OPIOIDS FOR PAIN If you have been prescribed an opioid (such as hydrocodone, oxycodone or morphine), it is critical to understand the possible side effects and risks of opioid pain medications. Even when taken as directed, opioids can have several side effects including: Tolerance, meaning you might need to take more of a medication for the same pain relief. Nausea, vomiting and/or constipation. Sleepiness, dizziness, dry mouth, confusion, depression or itching. Physical dependence, meaning you have withdrawal symptoms when a medication is stopped ? this can develop within a few days. KNOW YOUR RESPONSIBILITIES It is important to know exactly how much and how often to take the opioid pain medications you are prescribed. Never take opioids in higher amounts or more often than prescribed. Do not combine opioids with alcohol or other drugs that cause drowsiness, such as benzodiazepines, also known as benzos,including diazepam and alprazolam, muscle relaxants or sleep aids. Never sell or share prescriptionopioids. This is illegal. Store opioids in a secure place and out of reach of others (including children, family, friends and visitors). The last page(s) of this document has been signed and retained as a CHART COPY Signatures Patient Education Materials Near Syncope, Vasovagal Medication Leaflets My discharge plan and instructions have been reviewed and explained to me and INALLELY STEPHANIE understand my current condition and have read and understand these discharge instructions. I have received a written copy of the plan/instructions. If I have questions, I am aware that I should contact my doctor. Patient/Nursery Helper Signature: Date/Time: Relationship to Patient: Witness Name/Signature: Date/Time: [facility] [id number] Emergency department Discharge summary Discharge Instructions Thank you for allowing [facility] to assist you with your healthcare needs. The following is importantdischarge information regarding your hospital visit. What to Do Next Instructions from Your Care Team Please follow-up with your primary care provider in the next 1 day. If you develop recurrence of your symptoms, worsening lightheadedness, you develop shortness of breath or chest pain, please immediately return to the emergency department for reevaluation. Please stay hydrated with lots of fluids. No qualifying data available. Post Acute Orders No qualifying data available. You Need to Schedule the Following Appointments Follow Up with Follow up with primary care provider When:Within 1-2 days [facility] Up with [facility] When:Within 1-2 days Where: [phone] Additional Information: Return to ED if symptoms worsen Follow-up with Primary Care Physician Allergies Allergy (Diphenhydramine HCl) CeleXA Novak Contrast dye Lactose amoxicillin clindamycin haloperidol iodine moxifloxacin penicillin Medications Please ask your primary doctor or pharmacist before taking any other medication not listed, including over the counter drugs, herbal medications, vitamins and or supplements as they may interact withyour home medications. Please take this list to your next doctor s visit. Bring all medications you take, including over the counter medications, herbals and other supplements with you to your doctor s visit. Patients and families are reminded to discard old lists and to update any records with all medication providers or retail pharmacies. Education Materials Near-Fainting: Vagal Reaction Fainting (syncope) is a temporary loss of consciousness (passing out). It is associated with a lossof postural tone. Postural tone is the constant contraction of the muscles in your body to help keep your body upright. It also helps blood return towards the heart and brain. Syncope occurs when there is reduced blood flow to the brain due to this common vagal reaction. A vagal reaction is a reflex response that causes a sudden drop in your blood pressure, and your pulse to slow down. If the pulse is low enough, the blood pressure falls and causes fainting or near-fainting. Lying down usually stops the reaction very quickly. These are symptoms of near-fainting: Feeling lightheaded or like you are going to faint Weak pulse Nausea Sweating Blurred vision or feeling like your vision is "blacking out" Palpitations Chest pain Trouble breathing Cool and clammy skin Causes for near-fainting include: Sudden emotional stress like fear, pain, panic, sight of blood Straining or overexertion, straining while using the toilet, coughing, sneezing Standing up too quickly, or standing up for too long a time Home care The following will help you care for yourself at home: Rest today and go back to your normal activities as soon as you are feeling back to normal. If you become light-headed or dizzy, lie down right away or sit with your head lowered between yourknees. Stay hydrated and do not skip meals. Don't stand for long periods or stay in hot places Do what you can to prevent constipation. If you bear down excessively when trying to have a bowel movement, this can trigger a vagal response There may be other causes for a vagal response and near-syncope. For example, this can happen afteropen-heart surgery when the heart muscle is inflamed and irritated. Check with your doctor to see if there is testing you need such as a tilt-table test, heart rhythm monitoring, or blood tests. Review the medicines you take with your healthcare provider and pharmacist to be sure the symptoms you have are not a side effect of a medicine. Follow-up care Follow up with your healthcare provider, or as advised. If you are having frequent episodes of near-syncope or vagal reactions, be cautious about activities such as driving that could harm yourself or others if you were to faint. Do not drive or operate heavy machinery if you are feeling like you may faint. Call 911 Call 911 if any of these occur: Another fainting spell occurs, and it is not explained by the common causes listed above Fainting or loss of consciousness Chest, arm, neck, jaw, back, or abdominal pain Shortness of breath Weakness, tingling, or numbness in one side of the face, one arm or leg Slurred speech, confusion, trouble walking or seeing Seizure Blood in vomit or stools (black or red color) When to seek medical advice Call your healthcare provider right away if you have occasional mild lightheadedness, especially when standing up. [id number] [employer]. [address] [place] [address], [place] [address]. All rights reserved. This information is not intended as a substitute for professional medical care. Always follow yourhealthcare professional's instructions. Additional Information VACCINATE! IT SAVES LIVES! Members of the community who have not yet received the COVID-19 vaccine and would like to receive it can visit one of [facility] vaccine clinics. There are many vaccine clinic locations within the [facility]. For locations and available times, please visit www.[email or web address].gov/. It is important to note that some COVID mobile vaccine clinics are held outdoors and may be canceled in rainy or stormy conditions. To learn more about pediatric vaccinations (ages 5-11), we invite you to visit the [facility] webpage. https://www.[facility].org/pages/2948-Nfgeg-Dojzewsqbay-Vipunqdskl-Ibqsh-Idc stions.htmlTo learn more about the COVID-19 vaccine, we invite you to visit the CDC website for a list of frequently asked questions. https://www.cdc.gov/coronavirus/2019-ncov/vaccines/faq.html [facility] Patient Portal Access Instructions: Stay connected with your healthcare team and access your personal medical information anytime with the [facility] Patient Portal. If you would like a full copy of your medical records please contact the [facility] Medical Records Department Tuesday through Tuesday between 8a.m. and 4:30p.m. Please follow the directions below to access the portal: 1.Access the email account you provided upon registration to the hospital.2.Look for an invitation email from [facility].3.Open the email and access the invitation link: Accept Invitation to [facility]4.Fill in the required contreras to create your account. Sign into [email or web address] with your username and password that you created in the above steps to stay up to date. You can then view a summary of results, a summary of your visits, and the ability to download your summaries to your computer or send the information securely to a physician. Remember that your healthcare information is confidential, so carefully consider who you will allow to register on the [facility] Patient Portal for access to your information. You can also access the [facility] Patient Portal on the [employer]. Simply click on "Health Records" under "[employer]" and then click on the [employer] logo. HOW TO SAFELY DISPOSE OF PRESCRIPTION MEDICATIONS Please use one of the following methods to safely dispose of your unused medications. 1.Use a drug disposal kit: the drug disposal pouch allows you to safely discard your old and unuseddrugs. Ask your nurse to give you one when you are discharged.2.Visit a local take-back location: Many local pharmacies and police departments have programs that collect old and unwanted prescriptiondrugs. Call your local pharmacy or go to http://[employer].AudioTag/1H1Uw5n to find one close to you.3.Make use of household items: Use cat litter or old coffee grounds to dispose medications if other options arenot available. Mix your drugs with these household products, seal them in an airtight container andthrow it into the garbage. Call [facility]: [phone] to be sure your drugs can be disposed of in this way. Some medicines may require a different approach.4.Never flush your medications down the toilet. IF YOU HAVE BEEN PRESCRIBED AN OPIOIDS FOR PAIN If you have been prescribed an opioid (such as hydrocodone, oxycodone or morphine), it is critical to understand the possible side effects and risks of opioid pain medications. Even when taken as directed, opioids can have several side effects including: Tolerance, meaning you might need to take more of a medication for the same pain relief. Nausea, vomiting and/or constipation. Sleepiness, dizziness, dry mouth, confusion, depression or itching. Physical dependence, meaning you have withdrawal symptoms when a medication is stopped ? this can develop within a few days. KNOW YOUR RESPONSIBILITIES It is important to know exactly how much and how often to take the opioid pain medications you are prescribed. Never take opioids in higher amounts or more often than prescribed. Do not combine opioids with alcohol or other drugs that cause drowsiness, such as benzodiazepines, also known as benzos,including diazepam and alprazolam, muscle relaxants or sleep aids. Never sell or share prescriptionopioids. This is illegal. Store opioids in a secure place and out of reach of others (including children, family, friends and visitors). The last page(s) of this document has been signed and retained as a CHART COPY Signatures Patient Education Materials Near Syncope, Vasovagal Medication Leaflets My discharge plan and instructions have been reviewed and explained to me and I,NALLELY GERMAINE understand my current condition and have read and understand these discharge instructions. I have received a written copy of the plan/instructions. If I have questions, I am aware that I should contact my doctor. Patient/Nursery Helper Signature: Date/Time: Relationship to Patient: Witness Name/Signature: Date/Time[id number] Note ORIGINAL EXAMINATION: ONE XRAY VIEW OF THE CHEST 03/30/2024 11:17 pm COMPARISON: None. HISTORY: ORDERING SYSTEM PROVIDED HISTORY: Reason for Exam: near syncope FINDINGS: The lungs are without acute focal process. There is no effusion or pneumothorax. The cardiomediastinal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 98with a normal anion gap of 5. Ethyl alcohol is negative at less than 3.0. Urine for drugs of abuse is also negative. Serum test is negative. I reviewed and interpreted her bilateral foot x-rays. While there is no evidence of fracture, there is a very small sliver of glass in her heel. Her wounds were cleansed. I attempted to manually remove the small sliver of glass,but patient did not tolerate the use of hemostats, or forceps. She did not wantincision to be made at this time. I discussed the patient with Dr. Frazier with podiatry. Patient will be placed on antibiotics and follow-up as an outpatient when possible. She was warned of the risk of infection and scarring for retained foreign body in her foot and acknowledges an understanding. At this point in time, I do feel she is medically cleared for crisis evaluation. Disposition is pending. Patient will be signed out to the oncoming physician, Dr. Andrey Arechiga, for final disposition, especially should she require placement in a psychiatric facility. She has pending evaluation by crisis. Patient is in stable condition. Lab Data Attestation: I reviewed the patient's lab results. Labs: Laboratory Results - last 24 hr 06/29/22 06/29/22 06/29/22 20:37 20:37 20:37 WBC 9.1 RBC 4.17 L Hgb 13.1 Hct 38.1 MCV 91.4 MCH 31.4 MCHC 34.4 RDW Std Deviation 40.5 RDW Coeff of Mitchel 12.2 Plt Count 219 MPV 10.1 Immature Gran % (Auto) 0.300 Neut % (Auto) 62.0 Lymph % (Auto) 24.4 [place] % (Auto) 9.0 Eos % (Auto) 3.6 Baso % (Auto) 0.7 Absolute Neuts (auto) 5.7 Absolute Lymphs (auto) 2.23 Nucleated RBC % 0 Differential Comment SCANNED Sodium 140 Potassium 3.9 Chloride 108 H Carbon Dioxide 27.0 Anion Gap 5 BUN 10 Creatinine 0.63 Estim Creat Clear Calc 100.04 Est GFR (MDRD) Af Amer 139 Est GFR (MDRD) Non-Af 115 BUN/Creatinine Ratio 15.8 Glucose 98 Calcium 9.1 Serum , Qual Urine Opiates Screen Urine Methadone Screen Ur Barbiturates Screen Ur Phencyclidine Scrn Ur Amphetamines Screen MDMA (Ecstasy) Screen U Benzodiazepines Scrn Urine Cocaine Screen U Cannabinoids Screen Ur Drug Screen Comment Ethyl Alcohol < 3.0 06/29/22 06/29/22 20:37 20:45 WBC RBC Hgb Hct MCV MCH MCHC RDW Std Deviation RDW Coeff of Mitchel Plt Count MPV Immature Gran % (Auto) Neut % (Auto) Lymph % (Auto) [place] % (Auto) Eos % (Auto) Baso % (Auto) Absolute Neuts (auto) Absolute Lymphs (auto) Nucleated RBC % Differential Comment Sodium Potassium Chloride Carbon Dioxide Anion Gap BUN Creatinine Estim Creat Clear Calc Est GFR (MDRD) Af Amer Est GFR (MDRD) Non-Af BUN/Creatinine Ratio Glucose Calcium Serum , Qual NEGATIVE Urine Opiates Screen NEGATIVE Urine Methadone Screen NEGATIVE Ur Barbiturates Screen NEGATIVE Ur Phencyclidine Scrn NEGATIVE Ur Amphetamines Screen NEGATIVE MDMA (Ecstasy) Screen NEGATIVE U Benzodiazepines Scrn NEGATIVE Urine Cocaine Screen NEGATIVE U Cannabinoids Screen NEGATIVE Ur Drug Screen Comment Ethyl Alcohol Radiography Diagnostic Testing: Clinical Impression(s) from Imaging Studies Foot X-Ray 06/29/22 20:26 IMPRESSION: Negative. Electronically Signed: Andrey Andres MD at 21:21 EST , Foot X-Ray 06/29/22 21:00 IMPRESSION: Possible piece of glass within the subcutaneous fat of the left heel Electronically Signed: Andrey Andres MD at 21:23 EST , Discharge Plan Triage Chief Complaint: Mental Health ED Provider: Sudarshan Capone Dx/Rx/DC Orders Clinical Impression: Anger, Schizophrenia, Retained foreign body of foot, Violent behavior Prescriptions: New doxycycline monohydrate 100 mg capsule 100 mg PO BID Qty: 14 0RF No Action NK Primary Care Provider: Care Physician,No Primary Referrals: Care Physician,No Primary [Primary Care Provider] - What to do if you have Problems For any increased pain, shortness of breath, bleeding, nausea or vomiting, chestpain, or any unexpected problems, contact your Primary Care Provider. Call [facility] ([phone]) or report to the closest Emergency Room. Call 911 if necessary. 06/29/220 <Electronically signed by Sudarshan Capone MD> Cosigner Signature (if applicable): CC: No Primary Care Physician ~ Signed Work Phone: [phone] [id number] History of Past illness Narrative* Problem Noted Date Resolved Date Malnutrition of moderate degree 11/12/2007 09/02/2017 documented as of this encounter (statuses as of 07/27/2022) [facility] History of Past illness Narrative* Problem Noted Date Resolved Date Malnutrition of moderate degree 11/12/2007 09/02/2017 documented as of this encounter (statuses as of 08/02/2022) [facility] No data available for this section [facility] Evaluation + Plan note Future Appointments Appointment Date:08/30/2024 09:45:00 AM Scheduled Provider: Location:[facility] Appointment Type:CV Office Procedure Stress Test Appointment Date:10/11/2024 12:00:00 PM Scheduled Provider: Location:[facility] Appointment Type:Echo - Echocardiogram Adult [facility] Evaluation note* Diagnosis Chest pain, unspecified type- Primary documented in this encounter [facility] Work Phone: Evaluation noteNo assessment information available Work Phone: Evaluation note* Diagnosis Dental infection- Primary Acute apical periodontitis of pulpal origin documented in this encounter [facility] note* Diagnosis 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 * Chest Pain (Burmese) [facility] Work Phone: Discharge Instructions * Attachments The following attachments cannot be sent through Care Everywhere. * Hiatal Hernia (Burmese) documented in this encounter* Attachments The following attachments cannot be sent through Care Everywhere. * Bronchitis (Burmese) documented in this encounter* Attachments The following attachments cannot be sent through Care Everywhere. * Fever: General Info (Burmese) documented in this encounter Assessments Diagnosis Chest pain, unspecified type- Primary Hiatal hernia Diaphragmatic hernia without mention of obstruction or gangrene Pleural nodule Swelling, mass, or lump in chest Diagnosis Acute bronchitis with bronchospasm- Primary Acute bronchitis Diagnosis Cough- Primary Fever, unspecified fever cause Summary Purpose Family History No Family History Records Found Relationship Condition Age at Onset Recorded Date/T ralph Unknown Family History?No pe rtinent history Unknown February 25, 2015 1:06pm Family History?No pe rtinent history Unknown June 03, 2015 9:38pm Advance Directives No Advanced Directives Records Found Advance Directive Response Recorded Date/ Time Advance Directives No February 3:47pm Living Will No June 29 8:56pm Power of Bone Crusher No June 29, 2022 8:56pm Advance Directive Response Recorded Date/ Time Advance Directives No February 3:47pm Living Will No June 23 7:47pm Power of Bone Crusher No June 23, 2023 7:47pm Chief Complaint and Reason for Visit Chief Complaint ANGER ISSUES Chief Complaint PALPITATIONS Additional Source Comments Reason for Visit (unrecogniz ed section and content) Reason Comments Chest Pain Reason Comments Fever Reason Comments Chest Pain worsening chest pain x 1 month has had slight cough clear sputum seen in ED and Dr office / x rays EKG and chest CT Reason Comments Dental Problem right side bottom to oth pain x 1 year, appt 11/26 Reason Comments express care follow up - dental infectio n 07/27 Reason Comments Derm Problem Left back of neck op en area, bilat feet possible flea bites itching, no pain x 1 week Reason Comments Hand Pain right x couple month s increasing INFORMATION SOURCE (unrecogn ized section and content) DATE CREATED AUTHOR 06/01/2019 [facility] DATE CREATED AUTHOR AUTHOR'S ORGANIZ ATION 06/18/2019 [facility] DATE CREATED AUTHOR AUTHOR'S ORGANIZ ATION 01/26/2024 [facility] DATE CREATED AUTHOR AUTHOR'S ORGANIZ ATION 05/03/2024 [facility] DATE CREATED AUTHOR AUTHOR'S ORGANIZ ATION 08/23/2024 [facility] DATE CREATED AUTHOR AUTHOR'S ORGANIZ ATION 10/16/2024 [facility] Care Teams (unrecognized sec tion and content) Team Status: Active Member Role Status Dates Dr. Crissy Rai MD Family Provider Active No Primary Care Physician Primary Care Provider Active Team Status: Inactive Member Role Status Dates No Primary Care Physician Primary Care Provider Active Sudarshan Capone MD Emergency Provider Active Director Business Development Relationship Specialty Start Date End Date Garfield Gill MD [address] [place] [address] [place] [address] PCP - General Family Medicine 05/28/19 Team Status: Active Member Role Status Dates Dr. Crissy Rai MD Family Provider Active Dr. Andrey Gill MD Primary Care Provider Active Team Status: Inactive Member Role Status Dates Dr. Andrey Gill MD Primary Care Provider Active Dr. Ry Portillo DO Emergency Provider Active Goals (unrecognized section and content) Goals may be documented in a n alternate sectionGoals may be documented in an alternate section No data available for this section No data available for this section Source Comments (unrecognize d section and content) In the event this informatio n is protected by the Federal Confidentiality of Alcohol and Drug Abuse Patient Records regulations: The Federal rules restrict any use of the information to criminally investigate or prosecute any alcohol or drug abuse patient.[facility] the event this information is protected by the Federal Confidentiality of Alcohol and Drug Abuse Patient Records regulations: The Federal rules restrict any use of the information to criminally investigate or prosecute any alcohol or drug abuse patient.[facility] HealthcareIn the event this information is protected by the Federal Confidentiality of Alcohol and Drug Abuse Patient Records regulations: The Federal rules restrict any use of the information to criminally investigate or prosecute any alcohol or drug abuse patient.[facility] Healthcare[facility] the event this information is protected by the Federal Confidentiality of Alcohol and Drug Abuse Patient Records regulations: The Federal rules restrict any use of the information to criminally investigate or prosecute any alcohol or drug abuse patient.[facility] FOR RECORDS PERTAINING TO PATIENTS WHO ARE [...] BE BASED ON THE PRIMARY CLINICAL RECORDS. [facility]. provides no warranty or guarantee of the accuracy or completeness of information in this document.
[2025-01-02 00:40] VITALS: BP 115/83; PULSE 98; RESP 18; TEMP 36.6; O2SAT 98
--- NOTE | 2025-01-15 18:36 | CM.ED ---
Social Work On January 11, 2025, this life insurance underwriter received notice from patient's guardian sales representative door to door Zulma Hdez, who states changes in guardianship sales representative door to door for this patient. [facility] is to now be listed as emergency contact with primary number to call as [phone]. Patient's demographics updated in the EMR as of 01.15.2025. -TITO Griffin
== END 2025-01-02 00:44 | disposition home or self-care (01) ==
LOC: ED 01-02 00:36
PROVIDERS: Emergency Provider Emergency Medicine; PCP Family Medicine; Visit Provider Emergency Medicine
DX: R79.9 Abnormal finding of blood chemistry, unspecified (principal); F20.9 Schizophrenia, unspecified
CPT/HCPCS: 99282

== ENCOUNTER 2025-01-02 14:30 | Outpatient (CLI) | payer MEDICARE, MEDICAID, SELFPAY | END 2025-01-02 23:59 | disposition home or self-care (01) | LOC: LAB 14:32 | PROVIDERS: PCP Family Medicine; Referring Provider Psychiatry & Neurology Psychiatry; Visit Provider Psychiatry & Neurology Psychiatry | DX: Z79.899 Other long term (current) drug therapy (principal) | CPT/HCPCS: 36415 ==